=== PATIENT | male | born 1960 | race Caucasian/White ===

== ENCOUNTER 2019-10-27 14:39 | Emergency (ER) | payer MEDICARE, MEDICAID, SELFPAY ==
[2019-10-27 14:39] VITALS: BP 140/95; PULSE 78; RESP 16; TEMP 36.7; O2SAT 96
--- NOTE | 2019-10-27 14:57 | XR_ITS ---
WS: [id number] XR chest 1V portable [id number] REASON FOR EXAM: cough/congestion FINDINGS: The left lower lung shows a low-grade infiltrate with alveolar configuration consistent wit h an early pneumonia. The right lung shows increased peribronchial markings. The heart is not enlarged mediastinal interfaces normal. The hilum and apices normal. XR/XR chest 1V portable [id number] IMPRESSION: Left lower lung pneumonia.
--- NOTE | 2019-10-27 14:57 | ECG_ITS ---
Measurements Intervals [place] Rate: 75 P: 41 OR: 156 QRS: 56 QRSD: 91 T: 40 QT: 375 QTc: 419 SINUS RHYTHM No previous ECG available for comparison Electronically Signed On 10-27-2019 17:25:31 CDT by Sudhir Thornton M.D. [id number]
--- NOTE | 2019-10-27 14:57 | CT_ITS ---
WS: [id number] CT scan of the head, 10/27/2019 Clinical Data: trauma Comparison: None. DLP: 845.[address] scans at [facility] use at least one of these dose optimization techniques: automat ed exposure control; mA and/or kV adjustment per patient size (includes targeted exams where dose is matched to clinical indication); or iterative reconstruction. Findings: The ventricular system is moderately dilated without shift. No recent infarct or hemorrhage is seen. There are no abnormal intracerebral masses. The cerebellum and brainstem are not remarkable. Bony windows of the skull and skull base show no fractures or erosions. The mastoid air cells, internet marketing specialist al auditory canals, sella turcica, intraorbital contents, and paranasal sinuses are unremarkable. CT/CT head wo con* [id number] Impression: Moderate cerebral atrophy.
--- NOTE | 2019-10-27 15:01 | ED_ITS ---
HPI - Fall General: Chief Complaint: Fall Stated Complaint: FALL HEAD INJURY Time Seen by Provider: 10/27/19 14:39 Source: patient and family Mode of arrival: ambulatory Limitations: language barrier and altered mental status History of Present Illness: HPI Narrative: Patient is a 59-year-old male with a history of Down Syndrome here with his mother for complaints of a head injury. 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 Mother states patient has been at his mental baseline since the event. MD complaint: fall Onset (ago): hour(s) Fall from: chair Fall witnessed: yes, by bystander Place fall occurred: work Loss of consciousness: None Prolonged down time: no Symptoms prior to fall: other (cough) Associated symptoms-after fall: Denies abdominal pain, chest pain, headache(s) or neck pain Review of Systems Const: Denies: fever, chills or body aches Eyes: Denies: change in vision or blurry vision Card: Denies: chest pain Resp: Reports: productive cough and chest congestion; Denies: shortness of breath, pain on inspiration or coughing up blood GI: Denies: abdominal pain, nausea, vomiting or diarrhea : Denies: flank pain, difficulty urinating or painful urination Musc: Denies: neck pain or back pain Skin/Breast: Denies: rash Neuro: Denies: headache, numbness in extremities, weakness in extremities or changes in sensation PFS ED PFSH: Social History Smoking and tobacco status: never smoked Physical Exam Const: COMMON NORMALS: no apparent distress, average body habitus, oriented x3, no limitations, healthy appearing, alert and well nourished OTHER: at mental baseline per mother with his down syndrome HENMT: COMMON NORMALS: normocephalic, head/scalp atraumatic, external ears normal, EAC's normal, TM's normal bilaterally, external nose normal, nasal mucous membranes and turbinates normal, moist oral mucous membranes and oropharynx normal HEAD & SCALP: normocephalic and atraumatic NOSE: external nose normal and nasal mucous membranes and turbinates normal EXTERNAL EAR: Yes external ears normal EXTERNAL AUDITORY CANAL: EAC's normal TYMPANIC MEMBRANE: TM's normal bilaterally Eye: COMMON NORMALS: PERRL and EOMs intact bilaterally PUPIL: Yes PERRL Neck/C-Spine: COMMON NORMALS: full ROM, no lymphadenopathy and no meningeal signs CERVICAL SPINE: Yes cervical ROM normal, No pain with cervical ROM, No cervical spine tenderness and No paracervical muscle tenderness Resp: COMMON NORMALS: normal respiratory effort and clear to auscultation bilaterally AUSCULTATION: clear to auscultation bilaterally Cardio: COMMON NORMALS: regular rate and regular rhythm RATE: regular rate RHYTHM: regular rhythm GI: COMMON NORMALS: normal to inspection, nondistended, normoactive bowel sounds, soft to palpation and non-tender PALPATION: Yes soft Back/Pelvis: COMMON NORMALS: thoracic and lumbar spine normal to inspection, no thoracic nor lumbar tenderness and thoraco-lumbar ROM normal Extremity: COMMON NORMALS: normal to inspection Neuro: COMMON NORMALS: oriented x3 SENSORIUM/ORIENTATION: Yes alert MENINGEAL SIGNS: Yes no meningeal signs Skin: COMMON NORMALS: no rashes or lesions noted GENERAL SKIN EXAM: no rashes or lesions noted Course Vital Signs: Vital signs: Vital Signs Temperature 98.0 F 10/27/19 14:39 Pulse Rate 76 10/27/19 17:05 Respiratory Rate 16 10/27/19 17:05 Blood Pressure 139/90 10/27/19 17:05 Pulse Oximetry 96 10/27/19 17:05 MDM - Fall MDM Narrative: Medical decision making narrative: Most likely due to the coughing patient had a vasovagal episode and fell forward striking his head. CT of his head is normal here. He does have a left lower lobe pneumonia. Vitals and labs are non-concerning at this time. He is stable to be treated as an outpatient. Lab Data: Labs: Lab Results 10/27/19 10/27/19 10/27/19 Range/Units 15:05 15:05 15:05 WBC 4.0 (4.0-10.0) 10^3/ uL RBC 4.88 (4.1-5.3) 10^6/u L Hgb 16.1 (11.7-16.6) g/dL Hct 48.2 (42.0-52.0) % MCV 98.8 H (80-94) fL MCH 33.0 (28.0-34.0) pg MCHC 33.4 (30.0-36.0) g/dL RDW 12.9 (12.1-15.1) % Plt Count 201 (130-400) 10^3/c mm MPV 9.6 (7.4-10.4) fL Neut % (Auto) 54.4 % Lymph % (Auto) 34.0 % [place] % (Auto) 8.4 % Eos % (Auto) 0.5 % Baso % (Auto) 1.7 % Neut # (Auto) 2.2 (1.8-7.7) 10^3/u L Lymph # (Auto) 1.4 (0.8-4.8) 10^3/u L [place] # (Auto) 0.3 (0.2-0.9) 10^3/u L Eos # (Auto) 0.0 (0.0-0.8) 10^3/u L Baso # (Auto) 0.1 (0.0-0.1) 10^3/u L Nucleated RBC % (a uto) 0 % Nucleated RBCs # 0.0 /100WBC Sodium 136 (136-145) mmol/L Potassium 4.1 (3.5-5.1) mmol/L Chloride 99 (98-107) mmol/L Carbon Dioxide 27 (22-29) mmol/L Anion Gap 14.1 (5-19) BUN 14 (6-20) mg/dL Creatinine 1.0 (0.7-1.2) mg/dL GFR Calculation 76.7 L (90-130) mL/min Glucose 126 H (65-115) mg/dL Calculated Osmolal ity 280 L (285-295) mOsm/k g Calcium 9.6 (8.5-10.5) mg/dL Total Bilirubin 0.3 (0.15-1.2) mg/dL AST 47 H (0-40) U/L ALT 41 (0-41) U/L Alkaline Phosphata se 57 (40-130) IU/L Troponin T Gen 5 n g/L 7 (0-15) ng/mL Total Protein 8.2 (6.6-8.7) g/dL Albumin 3.9 (3.5-5.2) g/dL Globulin 4.3 (1.3-4.6) g/dL Imaging Data^: CXR: Radiologist's impression: [address] [address] XRay Report Signed Patient: Marco Bradley Unit #: [id number] : 1960 Age/Sex: 59 / M ADM Date: 10/27/19 Loc: ER Room/Bed: Attending Dr: Ordering Provider/Ordering MD: Nuris Florez Date of Service: 10/27/19 Procedure(s): XR chest 1V portable [id number] Accession Number(s): [id number] Report Number: [id number] WS: [id number] XR chest 1V portable [id number] REASON FOR EXAM: cough/congestion FINDINGS: The left lower lung shows a low-grade infiltrate with alveolar configuration consistent with an early pneumonia. The right lung shows increased peribronchial markings. The heart is not enlarged mediastinal interfaces normal. The hilum and apices normal. XR/XR chest 1V portable [id number] IMPRESSION: Left lower lung pneumonia. Dictated By: Chris Moraes DO Signed By: Chris Moraes DO Signed Date/Time: 10/27/[address] Head: Radiologist's impression: [address] [place] [address] CT Scan Report Signed Patient: Marco Bradley Unit #: [id number] : 1960 Age/Sex: 59 / M ADM Date: 10/27/19 Loc: ER Room/Bed: Attending Dr: Ordering Provider/Ordering MD: Nuris Florez Date of Service: 10/27/19 Procedure(s): CT head wo con* [id number] Accession Number(s): [id number] Report Number: [id number] WS: [id number] CT scan of the head, 10/27/2019 Clinical Data: trauma Comparison: None. DLP: 845.[address] scans at [facility] use at least one of these dose optimization techniques: automated exposure control; mA and/or kV adjustment per patient size (includes targeted exams where dose is matched to clinical indication); or iterative reconstruction. Findings: The ventricular system is moderately dilated without shift. No recent infarct or hemorrhage is seen. There are no abnormal intracerebral masses. The cerebellum and brainstem are not remarkable. Bony windows of the skull and skull base show no fractures or erosions. The mastoid air cells, internal auditory canals, sella turcica, intraorbital contents, and paranasal sinuses are unremark able. CT/CT head wo con* [id number] Impression: Moderate cerebral atrophy. Dictated By: Zahra Thompson MD Signed By: Zahra Thompson MD Signed Date/Time: 10/27/191535 DD/ 33 EKG Data^: EKG 1: EKG interpretation date: 10/27/19 EKG interpretation time: 15:11 Interpretation: Sinus rhythm Rate [address] elevation or depression noted Discharge Plan Discharge Patient Disposition: Home, Self-Care Clinical Impression: Fall Qualifiers: Encounter type: initial encounter Qualified Code(s): W19.XXXA - Unspecified fall, initial encounter Pneumonia Qualifiers: Pneumonia type: due to unspecified organism Laterality: left Lung location: lower lobe of lung Qualified Code(s): J18.9 - Pneumonia, unspecified organism Condition: Stable Prescriptions: New doxycycline monohydrate 100 mg capsule 100 mg PO Q12H 10 Days Qty: 20 RF: 0 No Action levothyroxine 88 mcg Tablet 88 mcg PO DAILY RF: 0 Discharge Orders: Discharge Order (Routine); Ordered 10/27/19 Ordered By: Nuris Florez Referrals: [facility] [Other] Discharge Date/Time: 10/27/19 17:07 Coding Level of Care Code ED Dispatcher Chief Oil for Aris Law
[2019-10-27 15:12] LABS: Basophils # 0.1 10^3/uL (0.0-0.1); Basophils % 1.7 %; Eosinophils % 0.5 %; Hematocrit 48.2 % (42.0-52.0); Hemoglobin 16.1 g/dL (11.7-16.6); Lymphocytes # 1.4 10^3/uL (0.8-4.8); Mean Corpuscular HGB Conc 33.4 g/dL (30.0-36.0); Mean Corpuscular Volume 98.8 fL (80-94); Mean Platelet Volume 9.6 fL (7.4-10.4); Monocytes # 0.3 10^3/uL (0.2-0.9); Monocytes % 8.4 %; Neutrophils # 2.2 10^3/uL (1.8-7.7); Neutrophils % 54.4 %; Nucleated Red Blood Cells % 0 %; Platelet Count 201 10^3/cmm (130-400); Red Blood Count 4.88 10^6/uL (4.1-5.3); Red Cell Distribution Width 12.9 % (12.1-15.1)
[2019-10-27 15:30] LABS: Alanine Aminotransferase 41 U/L (0-41); Albumin Level 3.9 g/dL (3.5-5.2); Alkaline Phosphatase 57 IU/L (40-130); Anion Gap 14.1 (5-19); Aspartate Amino Transferase 47 U/L (0-40); Blood Urea Nitrogen 14 mg/dL (6-20); Calcium 9.6 mg/dL (8.5-10.5); Carbon Dioxide 27 mmol/L (22-29); Chloride 99 mmol/L (98-107); Globulin 4.3 g/dL (1.3-4.6); Glomerular Filtration Rate 76.7 mL/min (90-130); Glucose 126 mg/dL (65-115); Osmolality Calculated 280 mOsm/kg (285-295); Potassium 4.1 mmol/L (3.5-5.1); Sodium 136 mmol/L (136-145); Total Bilirubin 0.3 mg/dL (0.15-1.2); Total Protein 8.2 g/dL (6.6-8.7)
[2019-10-27 15:32] LABS: Troponin T (5th) Once 7 ng/mL (0-15)
--- NOTE | 2019-10-27 15:47 | PC.NURSE ---
patient returned from ct
[2019-10-27 17:05] VITALS: BP 139/90; PULSE 76; RESP 16; O2SAT 96
== END 2019-10-27 17:07 | disposition home or self-care (01) ==
LOC: ER 16:20
PROVIDERS: Emergency Provider Physician Assistant; PCP Physician Assistant Medical
DX: J18.9 Pneumonia, unspecified organism (principal); Q90.9 Down syndrome, unspecified
CPT/HCPCS: 12345; 36415; 70450; 71045; 80053; 84484; 85025; 93005; 99281; 99283

== ENCOUNTER 2022-10-05 08:28 | Emergency (ER) | payer MEDICARE, MEDICAID, SELFPAY ==
[2022-10-05 08:29] VITALS: BP 97/67; PULSE 71; TEMP 36.5; O2SAT 93
--- NOTE | 2022-10-05 08:36 | ECG_ITS ---
[facility] Test Date: 2022-10-05 Pat Name: Marco Bradley Department: Room: Gender: Male Legislative Analyst: : 1960 Requested By: Kt Cerda Order Number: [id number] Dasia MD: Jose Restrepo M.D. Measurements Intervals [place] Rate: 72 P: 16 [place]: 167 QRS: 31 QRSD: 96 T: -11 QT: 389 QTc: 429 Interpretive Statements SINUS RHYTHM NONSPECIFIC T-WAVE ABNORMALITY Compared to ECG 10/27/2019 15:11:43 T-wave abnormality now present Electronically Signed On 10-05-2022 22:20:45 BULK FILLER by Jose Restrepo M.D. [id number]
--- NOTE | 2022-10-05 08:44 | ED_ITS ---
HPI - Seizure General: Chief Complaint: Seizure Stated Complaint: Seizures, AMS Time Seen by Provider: 10/05/22 08:34 Source: patient Mode of arrival: EMS History of Present Illness: HPI Narrative: 62-year-old male resident of a [place] [facility] with history of Down syndrome and Parkinson's. He has some dementia as well he is nonverbal at this point. shelter states he has a seizure he has a known history of seizure disorder. Looking through some old notes they have provided us to look like at one time he was on the Keppra: He currently is on valproic acid. complaint: seizure Onset (ago): minute(s) Witnessed: Yes - by Other Trauma: No Seizure History: Yes Place: Home (shelter) Possible Precipitating Event: none Treatments prior to arrival: none Review of Systems General: Reports: ROS unobtainable due to mental status PFSH ED PFSH: Medical History (Updated 10/05/22 @ 10:41 by Kt Ott DO) Hypothyroidism Parkinsons Seizure disorder Social History Smoking and tobacco status: never smoked Physical Exam Const: COMMON NORMALS: no acute distress GENERAL APPEARANCE: cooperative and comfortable ORIENTATION/CONSCIOUSNESS: Yes awake HENMT: COMMON NORMALS: normocephalic, atraumatic and hearing grossly normal bilaterally HEAD & SCALP: normocephalic and atraumatic Resp: COMMON NORMALS: normal respiratory effort, No retractions, No use of accessory muscles and clear to auscultation bilaterally AUSCULTATION: clear to auscultation bilaterally Cardio: COMMON NORMALS: regular rate, regular rhythm and No murmurs present (Cardio) RATE: regular rate RHYTHM: regular rhythm GI: COMMON NORMALS: Soft to palpation and No hepatosplenomegaly present AUSCULTATION: Yes normoactive bowel sounds PALPATION: Yes Soft to palpation, No Tenderness to palpation present (GI), No Guarding due to palpation present (GI) and Yes No hepatosplenomegaly present Extremity: COMMON NORMALS: normal to inspection, capillary refill normal, no c lubbing, cyanosis or edema, no calf tenderness and no pedal edema Skin: COMMON NORMALS: no rashes or lesions noted GENERAL SKIN EXAM: no rashes or lesions noted Course Vital Signs: Vital signs: Vital Signs Temperature 97.7 F 10/05/22 08:29 Pulse Rate 75 10/05/22 12:22 Respiratory Rate 23 H 10/05/22 12:22 Blood Pressure 108/77 10/05/22 12:22 Pulse Oximetry 97 10/05/22 12:22 Oxygen Delivery Me thod 10/05/22 09:30 MDM - Seizure MDM Narrative Medical decision making narrative: Labs reviewed. No significant abnormalities. His valproic acid level is slightly below therapeutic likely because he did not take his dose today. Continue current medications they should follow-up with her neurologist about any medication doses reviewing old records if at one point he was on Keppra and was changed to the valproic acid. He has not had any further seizures. He has dementia and Parkinson's as well. Discharged back to [place] [facility]. Lab Data 10/05/22 07:45 10/05/22 09:30 Labs: Laboratory Results WBC 5.7 10^3/uL (4.0-10.0) 10/05/22 07:45 RBC 4.32 10^6/uL (4.1-5.3) 10/05/22 07:45 Hgb 14.9 g/dL (11.7-16.6) 10/05/22 07:45 Hct 46.3 % (42.0-52.0) 10/05/22 07:45 MCV 107.2 fl (80-94) H 10/05/22 07:45 MCH 34.5 pg (28.0-34.0) H 10/05/22 07:45 MCHC 32.2 g/dL (30.0-36.0) 10/05/22 07:45 RDW 13.1 % (12.1-15.1) 10/05/22 07:45 Plt Count 205 10^3/cmm (130-400) 10/05/22 07:45 MPV 11.0 fL (7.4-10.4) H 10/05/22 07:45 Neut % (Auto) 31.9 % 10/05/22 07:45 Lymph % (Auto) 51.6 % 10/05/22 07:45 [place] % (Auto) 9.8 % 10/05/22 07:45 Eos % (Auto) 0.7 % 10/05/22 07:45 Baso % (Auto) 1.6 % 10/05/22 07:45 Neut # (Auto) 1.83 10^3/uL (1.8-7.7) 10/05/22 07:45 Lymph # (Auto) 3.0 10^3/uL (0.8-4.8) 10/05/22 07:45 [place] # (Auto) 0.6 10^3/uL (0.2-0.9) 10/05/22 07:45 Eos # (Auto) 0.0 10^3/uL (0.0-0.8) 10/05/22 07:45 Baso # (Auto) 0.1 10^3/uL (0.0-0.1) 10/05/22 07:45 Nucleated RBC % (auto) 0 % 10/05/22 07:45 Nucleated RBCs # 0.0 /100WBC 10/05/22 07:45 Sodium 135 mmol/L (136-145) L 10/05/22 09:30 Potassium 3.8 mmol/L (3.5-5.1) 10/05/22 09:30 Chloride 99 mmol/L (98-107) 10/05/22 09:30 Carbon Dioxide 28 mmol/L (22-29) 10/05/22 09:30 Anion Gap 11.8 (5-19) 10/05/22 09:30 BUN 11 mg/dL (8-23) 10/05/22 09:30 Creatinine 1.0 mg/dL (0.7-1.2) 10/05/22 09:30 GFR Calculation 76.0 mL/min (90-130) L 10/05/22 09:30 Glucose 104 mg/dL (65-115) 10/05/22 09:30 POC Glucose 90 mg/dL (70-110) 10/05/22 09:01 Calculated Osmolality 280 mOsm/kg (285-295) L 10/05/22 09:30 Calcium 9.1 mg/dL (8.5-10.5) 10/05/22 09:30 Total Bilirubin 0.4 mg/dL (0.15-1.2) 10/05/22 09:30 AST 27 U/L (0-40) 10/05/22 09:30 ALT 19 U/L (0-41) 10/05/22 09:30 Alkaline Phosphatase 66 U/L (40-130) 10/05/22 09:30 Total Protein 8.5 g/dL (6.6-8.7) 10/05/22 09:30 Albumin 3.0 g/dL (3.5-5.2) L 10/05/22 09:30 Globulin 5.5 g/dL (1.3-4.6) H 10/05/22 09:30 Valproic Acid 46.5 ug/mL (50-100) L 10/05/22 09:30 Discharge Plan Discharge Patient Disposition: Home Clinical Impression: Seizure disorder, Parkinsons Condition: Stable Prescriptions: No Action levothyroxine 175 mcg tablet 175 mcg PO DAILY senna 8.6 mg Tablet 8.6 mg PO BID acetaminophen 325 mg Tablet 650 mg PO QID PRN (Reason: Pain) divalproex 250 mg tablet,delayed release (DR/EC) 250 mg PO TID Miralax 17 gram Powder In Packet 17 g PO BID hydrocodone-acetaminophen 5-325 mg tablet 1 tab PO Q6H PRN (Reason: Pain) Visine 0.05 % Drops 2 drp OPHTHALMIC (EYE) Q8H PRN (Reason: Dry Eye(S)) Milk of Magnesia 400 mg/5 mL Suspension 30 ml PO DAILY PRN (Reason: Constipation) bisacodyl 10 mg Suppository 10 mg MO DAILY PRN (Reason: Constipation) Fleet Enema 19-7 gram/118 mL Enema 118 ml MO DAILY PRN (Reason: Constipation) carbidopa-levodopa 25-100 mg tablet 1 tab PO TID hydrochlorothiazide 12.5 mg tablet 12.5 mg PO DAILY Discharge Orders: Discharge ED (Routine); Ordered 10/05/22 Ordered By: Kt Ott Referrals: Gerald Mason [Primary Care Provider] - Discharge Diet: Usual diet Discharge Activity: Resume usual activity Patient Instructions: Opioid Safety, Pain Management Activity Restrictions/Additional Instructions: You are seen today after a seizure. Given your history of seizures there is no further work-up needed. A valproic acid level was done can be used by your attending physician and neurologist to adjust future medications. He will be discharged back to the [place] [facility] recommend staff there make your neurologist aware of the breakthrough seizure to see if they wish to change any medications. At this time continue to take previously prescribed medications with no changes. Coding Level of Care Code ED Bread Jockey for Aris Law
[2022-10-05 08:59] LABS: Basophils # 0.1 10^3/uL (0.0-0.1); Basophils % 1.6 %; Eosinophils % 0.7 %; Hematocrit 46.3 % (42.0-52.0); Hemoglobin 14.9 g/dL (11.7-16.6); Lymphocytes % 51.6 %; Mean Corpuscular HGB Conc 32.2 g/dL (30.0-36.0); Mean Corpuscular Hemoglobin 34.5 pg (28.0-34.0); Mean Corpuscular Volume 107.2 fl (80-94); Monocytes # 0.6 10^3/uL (0.2-0.9); Monocytes % 9.8 %; Neutrophils # 1.83 10^3/uL (1.8-7.7); Neutrophils % 31.9 %; Nucleated Red Blood Cells % 0 %; Platelet Count 205 10^3/cmm (130-400); Red Blood Count 4.32 10^6/uL (4.1-5.3); Red Cell Distribution Width 13.1 % (12.1-15.1); White Blood Count 5.7 10^3/uL (4.0-10.0)
[2022-10-05 09:00] VITALS: BP 104/66; PULSE 69; O2SAT 92
[2022-10-05 09:04] LABS: Glucose Point of Care 90 mg/dL (70-110)
[2022-10-05 09:30] VITALS: BP 121/75; PULSE 65; O2SAT 95
[2022-10-05 09:59] LABS: Alanine Aminotransferase 19 U/L (0-41); Alkaline Phosphatase 66 U/L (40-130); Anion Gap 11.8 (5-19); Aspartate Amino Transferase 27 U/L (0-40); Blood Urea Nitrogen 11 mg/dL (8-23); Calcium 9.1 mg/dL (8.5-10.5); Carbon Dioxide 28 mmol/L (22-29); Chloride 99 mmol/L (98-107); Globulin 5.5 g/dL (1.3-4.6); Glucose 104 mg/dL (65-115); Osmolality Calculated 280 mOsm/kg (285-295); Potassium 3.8 mmol/L (3.5-5.1); Sodium 135 mmol/L (136-145); Total Bilirubin 0.4 mg/dL (0.15-1.2); Total Protein 8.5 g/dL (6.6-8.7)
[2022-10-05 10:00] VITALS: BP 124/77; PULSE 71; O2SAT 92
[2022-10-05 10:30] VITALS: BP 101/86; PULSE 78; O2SAT 93
--- NOTE | 2022-10-05 10:36 | PC.NURSE ---
pt resting in bed. pt awake, tracking movement with eyes. baseline pt is nonverbal. oral care provided. pt able to follow simple commands.
[2022-10-05 11:06] LABS: Valproic Acid Level 46.5 ug/mL (50-100)
--- NOTE | 2022-10-05 11:22 | PC.NURSE ---
Dr. Ott to pt room to talk with family regarding discharge and answered questions family had
--- NOTE | 2022-10-05 11:32 | PC.NURSE ---
discharge report called to BULL Reilly correspondence section supervisor at [facility]
[2022-10-05 12:22] VITALS: BP 108/77; PULSE 75; RESP 23; O2SAT 97
== END 2022-10-05 12:24 | disposition home or self-care (01) ==
PROVIDERS: Emergency Provider Family Medicine; PCP Physician Assistant Medical
DX: G40.909 Epilepsy, unspecified, not intractable, without status epilepticus (principal); G20 Parkinson's disease
CPT/HCPCS: 36416; 80053; 80164; 82962; 85025; 93005; 99284

== ENCOUNTER 2022-12-10 10:06 | Inpatient (IN) | payer MEDICARE, MEDICAID, SELFPAY ==
[2022-12-10] VITALS (31 sets, daily range): BP systolic 72–126; BP diastolic 42–74; PULSE 61–101; RESP 10–28; TEMP 36.9–37.2; O2SAT 89–98
--- NOTE | 2022-12-10 11:23 | ECG_ITS ---
[facility] Test Date: 2022-12-10 Pat Name: Marco Bradley Department: Room: Gender: Male Blue Print Control Clerk: : 1960 Requested By: Kt Cerda Order Number: [id number] Dasia MD: Jose Restrepo M.D. Measurements Intervals [place] Rate: 85 P: 78 ME: 152 QRS: 85 QRSD: 89 T: 38 QT: 378 QTc: 450 Interpretive Statements SINUS RHYTHM NONSPECIFIC T-WAVE ABNORMALITY INTERPRETATION BASED ON A DEFAULT AGE OF 40 YEARS Compared to ECG 10/05/2022 08:51:34 No significant changes Electronically Signed On 12-10-2022 22:30:48 CDT by Jose Restrepo M.D. [id number] f
--- NOTE | 2022-12-10 11:23 | XRR_ITS ---
PROCEDURE INFORMATION: Exam: XR Chest Exam date and time: 12/10/2022 10:29 AM Age: 62 years old Clinical indication: Cough and dyspnea; Additional info: Dyspnea/cough TECHNIQUE: Imaging protocol: Radiologic exam of the chest. Views: 1 view. COMPARISON: CR XR chest 1V portable [id number] 10/27/2019 3:26 PM FINDINGS: Lungs: Mild reticulonodular opacity in the medial left lower lung. Right lung is clear. Pleural spaces: There is no pleural effusion or pneumothorax. Heart/Mediastinum: Cardiomediastinal contours are unremarkable. Bones/joints: Bones are unremarkable. XR/XR chest 1V portable [id number] IMPRESSION: Mild nonspecific opacity in the left lung base. The finding is decreased since 10/27/2019. Possible residual scarring and atelectasis versus a recurrent acute process. Infection is not excluded.
--- NOTE | 2022-12-10 11:23 | CTR_ITS ---
PROCEDURE INFORMATION: Exam: CT Head Without Contrast Exam date and time: 12/10/2022 11:37 AM Age: 62 years old Clinical indication: Altered mental status/memory loss; Confusion or disorientation; Additional info: AMS TECHNIQUE: Imaging protocol: Computed tomography of the head without contrast. Radiation optimization: All CT scans at this facility use at least one of these dose optimization techniques: automated exposure control; mA and/or kV adjustment per patient size (includes targeted exams where dose is matched to clinical indication); or iterative reconstruction. REPORTING DATA: Count of CT and Cardiac NM exams in prior 12 months: This patient has received 0 known CTs and 0 known cardiac nuclear medicine studies in the 12 months prior to the current study. COMPARISON: CT head wo con* [id number] 10/27/2019 3:17 PM RADIATION DOSE METRICS: Total DLP (mGy-cm): 2037. FINDINGS: Brain: Marked diffuse cerebral atrophy. There is hypoattenuation in the periventricular and subcortical white matter consistent with chronic microvascular disease. There is no acute intracranial hemorrhage. Cerebral ventricles: Severe lateral ventricular dilation is progressive since 10/27/2019. Moderate progressive dilation of the 3rd and 4th ventricles. No intraventricular hemorrhage. Paranasal sinuses: The paranasal sinuses are clear. Mastoid air cells: Trace left mastoid effusion. Right mastoid air cells are clear. Orbital cavities: Marked bilateral enophthalmos. Bones/joints: The calvarium is intact. Soft tissues: The visible extracranial soft tissues are unremarkable. CT/CT head wo con* [id number] IMPRESSION: 1. No acute intracranial abnormality. 2. Progressive severe diffuse cerebral atrophy since 10/27/2019. 3. Progressive severe diffuse ventricular dilation since 10/27/2019. Normal pressure hydrocephalus versus ventricular dilation related to atrophy.
[2022-12-10] MEDS: sodium chloride 0.9% 1,000 ML 999 ML IV (11:57)
[2022-12-10 12:01] LABS: Basophils # 0.1 10^3/uL (0.0-0.1); Basophils % 1.2 %; Hematocrit 43.9 % (42.0-52.0); Hemoglobin 13.4 g/dL (11.7-16.6); Lymphocytes # 1.6 10^3/uL (0.8-4.8); Lymphocytes % 27.2 %; Mean Corpuscular HGB Conc 30.5 g/dL (30.0-36.0); Mean Corpuscular Hemoglobin 34.5 pg (28.0-34.0); Mean Corpuscular Volume 113.1 fl (80-94); Mean Platelet Volume 12.1 fL (7.4-10.4); Monocytes # 0.5 10^3/uL (0.2-0.9); Neutrophils # 3.69 10^3/uL (1.8-7.7); Neutrophils % 61.6 %; Nucleated Red Blood Cells % 0.3 %; Platelet Count 142 10^3/cmm (130-400); Red Blood Count 3.88 10^6/uL (4.1-5.3); Red Cell Distribution Width 17.3 % (12.1-15.1)
[2022-12-10 12:07] LABS: ABG PCO2 40.5 mmHg (35-45); ABG PH Result 7.49 (7.35-7.45); Alveolar-Arterial Oxygen Gradi 3.9 mmHg (5-10); Arterial Blood Gas Hematocrit 40.1 % (42-52); Base Excess ABG 7.1 mmol/L (-2.0-2.0); Blood Gas Allen Test Pos; Blood Gas Operator Identificat WALCI; Blood Gas Sample Site Radial, left; Blood Gas Sample Type Arterial; Carboxyhemoglobin 1.6 %THgb (0.4-20.1); HGB O2 Sat 93.2 % (95-100); Ionized Calcium Level - ABG 1.1 mmol/L (1.1-1.4); Methemoglobin 0.5 % (0.4-1.5); Oxygen Saturation ABG 95.2; PO2 ABG 67.9 mmHg (80.0-100.0); Potassium Level - ABG 3.7 mmol/L (3.5-5.0); Total Hemoglobin 13.1 g/dL (14-18)
[2022-12-10 12:09] LABS: Ketone (Acetest) Serum Negative (Negative)
--- NOTE | 2022-12-10 12:10 | USR_ITS ---
PROCEDURE INFORMATION: Exam: US Duplex Lower Extremity Veins, Bilateral Exam date and time: 12/10/2022 12:16 PM Age: 62 years old Clinical indication: Swelling (edema) of limb; Lower extremity, bilateral; Additional info: Leg swelling TECHNIQUE: Imaging protocol: Real-time duplex ultrasound of the bilateral extremities with 2-D hernandez scale, color Doppler flow and spectral waveform analysis including responses to compression and other maneuvers (when performed) with image documentation. Complete exam focused on the lower extremity veins. COMPARISON: No relevant prior studies available. FINDINGS: Right deep veins: There is nonocclusive thrombus in the right common femoral vein. Right superficial veins: There is nonocclusive thrombus in the right greater saphenous vein. Left deep veins: There is occlusive thrombus in the left common femoral, femoral and popliteal vein. Left superficial veins: Saphenofemoral junction is patent without thrombus. Soft tissues: Unremarkable. US/CV venous duplex [facility] [id number] IMPRESSION: Bilateral deep venous thrombosis.
--- NOTE | 2022-12-10 12:18 | W.ED.GENADLT ---
HPI - General Adult General: Chief complaint: Altered Mental Status Stated complaint: AMS Time Seen by Provider: 12/10/22 10:26 Source: family Mode of arrival: EMS History of Present Illness: 62-year-old male presents to the emergency room with complaints of status. He lives at [facility]. He has a history of Down's as well as Parkinson's. He is progressively worsening with his Parkinson's had worsening dimension approximately a year ago and became unable to communicate. Family and fdc staff reports that he is off of his baseline. He has lost about 63 pounds in the last 6 months. He has not had any vomiting or diarrhea they have not noticed any fever sweats chills he is actually been moderately hypothermic they reported temp at the nursing of 96. He is not able to contribute anything to his history because of his nonverbal status.. There is no reported hematochezia melena hematemesis coffee-ground emesis. Onset (ago): hour(s) Relieving factors: none Exacerbating factors: none Review of Systems General: Reports: ROS unobtainable due to medical condition and ROS unobtainable due to mental status PFSH ED PFSH: Medical History (Updated 12/10/22 @ 13:33 by Kt Ott DO) Down syndrome Hypothyroidism Parkinsons Seizure disorder Surgical History (Updated 12/10/22 @ 13:16 by Venancio Florez MD) No history of previous surgery Family History (Updated 12/10/22 @ 13:17 by Venancio Florez MD) Mother Breast cancer Social History (Updated 12/10/22 @ 13:17 by Venancio Florez MD) Smoking and tobacco status: never smoked Alcohol intake: never Substance/Drug Use: never Housing: Assisted Physical Exam Const: GENERAL APPEARANCE: frail appearing NUTRITIONAL APPEARANCE: thin ORIENTATION/CONSCIOUSNESS: Yes awake HENMT: COMMON NORMALS: normocephalic, atraumatic and hearing grossly normal bilaterally HEAD & SCALP: normocephalic and atraumatic Resp: COMMON NORMALS: normal respiratory effort, No retractions, No use of accessory muscles and clear to auscultation bilaterally AUSCULTATION: clear to auscultation bilaterally Cardio: COMMON NORMALS: regular rate, regular rhythm and No murmurs present (Cardio) RATE: regular rate RHYTHM: regular rhythm GI: COMMON NORMALS: Soft to palpation and No hepatosplenomegaly present AUSCULTATION: Yes normoactive bowel sounds PALPATION: Yes Soft to palpation, No Tenderness to palpation present (GI), No Guarding due to palpation present (GI) and Yes No hepatosplenomegaly present Extremity: COMMON NORMALS: normal to inspection, capillary refill normal, no clubbing, cyanosis or edema, no calf tenderness and no pedal edema Skin: COMMON NORMALS: no rashes or lesions noted GENERAL SKIN EXAM: no rashes or lesions noted Course Vital Signs: Vital signs: Vital Signs Temperature 98.5 F 12/10/22 12:19 Pulse Rate 101 H 12/10/22 10:08 Respiratory Rate 18 12/10/22 12:06 Blood Pressure 99/74 12/10/22 10:08 Pulse Oximetry 94 12/10/22 12:06 Oxygen Delivery Me thod Room Air 12/10/22 12:06 MDM - General Adult Medical Decision Making Patient has bilateral DVTs as well as severe hypernatremia. His lactic acid is elevated as well. Suspect that may be due to the fluid depletion his BUN is 4.6 and his creatinine is 1.7. I think he is volume depleted because of his dementia he has not been having adequate fluid intake. Is also possible he had a seizure although needed the staff from the family can verify that they seen him have a seizure. His valproic acid is subtherapeutic slightly. Finally CTA of the chest was negative but he does have T4-8 compression fractures of indeterminate age. Discussed with hospitalist and family will admit to the ICU. Medical Records I reviewed the patient's medical records. Lab Data I reviewed the patient's lab results. 12/10/22 11:50 12/10/22 11:50 Radiology Impressions Chest X-Ray 12/10/22 11:23 IMPRESSION: Mild nonspecific opacity in the left lung base. The finding is decreased since 10/27/2019. Possible residual scarring and atelectasis versus a recurrent acute process. Infection is not excluded. Head CT 12/10/22 11:23 IMPRESSION: 1. No acute intracranial abnormality. 2. Progressive severe diffuse cerebral atrophy since 10/27/2019. 3. Progressive severe diffuse ventricular dilation since 10/27/2019. Normal pressure hydrocephalus versus ventricular dilation related to atrophy. Chest CTA 12/10/22 12:29 IMPRESSION: 1. No central pulmonary embolism. 2. Evaluation of the pulmonary arteries is limited by respiratory motion artifact. 3. T4 through T8 mild superior endplate compression fractures of indeterminate age. Laboratory Results WBC 6.0 10^3/uL (4.0-10.0) 12/10/22 11:50 RBC 3.88 10^6/uL (4.1-5.3) L 12/10/22 11:50 Hgb 13.4 g/dL (11.7-16.6) 12/10/22 11:50 Hct 43.9 % (42.0-52.0) 12/10/22 11:50 MCV 113.1 fl (80-94) H 12/10/22 11:50 MCH 34.5 pg (28.0-34.0) H 12/10/22 11:50 MCHC 30.5 g/dL (30.0-36.0) 12/10/22 11:50 RDW 17.3 % (12.1-15.1) H 12/10/22 11:50 Plt Count 142 10^3/cmm (130-400) 12/10/22 11:50 MPV 12.1 fL (7.4-10.4) H 12/10/22 11:50 Neut % (Auto) 61.6 % 12/10/22 11:50 Lymph % (Auto) 27.2 % 12/10/22 11:50 [place] % (Auto) 8.0 % 12/10/22 11:50 Eos % (Auto) 0.0 % 12/10/22 11:50 Baso % (Auto) 1.2 % 12/10/22 11:50 Neut # (Auto) 3.69 10^3/uL (1.8-7.7) 12/10/22 11:50 Lymph # (Auto) 1.6 10^3/uL (0.8-4.8) 12/10/22 11:50 [place] # (Auto) 0.5 10^3/uL (0.2-0.9) 12/10/22 11:50 Eos # (Auto) 0.0 10^3/uL (0.0-0.8) 12/10/22 11:50 Baso # (Auto) 0.1 10^3/uL (0.0-0.1) 12/10/22 11:50 Nucleated RBC % (auto) 0.3 % 12/10/22 11:50 Nucleated RBCs # 0.0 /100WBC 12/10/22 11:50 Specimen Type Arterial 12/10/22 11:56 Sample Site Radial, left 12/10/22 11:56 ABG pH 7.49 (7.35-7.45) H 12/10/22 11:56 ABG pCO2 40.5 mmHg (35-45) 12/10/22 11:56 ABG pO2 67.9 mmHg (80.0-100.0) L 12/10/22 11:56 ABG HCO3 31.0 mmol/L (22-26) H 12/10/22 11:56 ABG O2 Saturation 95.2 12/10/22 11:56 ABG Base Excess 7.1 mmol/L (-2.0-2.0) H 12/10/22 11:56 Riki Test Pos 12/10/22 11:56 A-a O2 Gradient 3.9 mmHg (5-10) L 12/10/22 11:56 Hematocrit 40.1 % (42-52) L 12/10/22 11:56 Hgb O2 Saturation 93.2 % (95-100) L 12/10/22 11:56 Carboxyhemoglobin 1.6 %THgb (0.4-20.1) 12/10/22 11:56 Methemoglobin 0.5 % (0.4-1.5) 12/10/22 11:56 Total Hemoglobin 13.1 g/dL (14-18) L 12/10/22 11:56 Sodium 169.0 mmol/L (131-143) H 12/10/22 11:56 Potassium 3.7 mmol/L (3.5-5.0) 12/10/22 11:56 Glucose 92.0 mg/dL (70-115) 12/10/22 11:56 Ionized Calcium 1.1 mmol/L (1.1-1.4) 12/10/22 11:56 O2 Delivery Device None 12/10/22 11:56 FiO2 21.0 % 12/10/22 11:56 Front End Application Developer ID [employer] 12/10/22 11:56 Sodium 164 mmol/L (136-145) H* 12/10/22 11:50 Potassium 4.1 mmol/L (3.5-5.1) 12/10/22 11:50 Chloride 125 mmol/L (98-107) H 12/10/22 11:50 Carbon Dioxide 29 mmol/L (22-29) 12/10/22 11:50 Anion Gap 14.1 (5-19) 12/10/22 11:50 BUN 46 mg/dL (8-23) H 12/10/22 11:50 Creatinine 1.7 mg/dL (0.7-1.2) H 12/10/22 11:50 GFR Calculation 41.2 mL/min (90-130) L 12/10/22 11:50 Glucose 91 mg/dL (65-115) 12/10/22 11:50 Calculated Osmolality 349 mOsm/kg (285-295) H 12/10/22 11:50 Lactic Acid 3.2 mmol/L (0.5-2.2) H 12/10/22 11:50 Calcium 8.4 mg/dL (8.5-10.5) L 12/10/22 11:50 Magnesium 2.6 mg/dL (1.7-2.3) H 12/10/22 11:50 Total Bilirubin 0.5 mg/dL (0.15-1.2) 12/10/22 11:50 AST 38 U/L (0-40) 12/10/22 11:50 ALT < 5 U/L (0-41) 12/10/22 11:50 Alkaline Phosphatase 56 U/L (40-130) 12/10/22 11:50 Creatine Kinase 130 U/L (39-308) 12/10/22 11:50 Total Protein 8.2 g/dL (6.6-8.7) 12/10/22 11:50 Albumin 2.5 g/dL (3.5-5.2) L 12/10/22 11:50 Globulin 5.7 g/dL (1.3-4.6) H 12/10/22 11:50 Lipase 26 U/L (13-60) 12/10/22 11:50 Valproic Acid 45.8 ug/mL (50-100) L 12/10/22 11:50 Serum Ketones Negative (Negative) 12/10/22 11:50 Discharge Plan Discharge Patient Disposition: Admitted As Inpatient Admit Provider: Venancio Florez Clinical Impression: Hypernatremia, DVT (deep venous thrombosis), JACEK (acute kidney injury), Parkinsons, Down syndrome, Lactic acidosis Condition: Stable Coding Level of Care Code ED Health Education Director for Aris Law
[2022-12-10 12:23] LABS: Valproic Acid Level 45.8 ug/mL (50-100)
[2022-12-10 12:24] LABS: Alanine Aminotransferase < 5 U/L (0-41); Albumin Level 2.5 g/dL (3.5-5.2); Alkaline Phosphatase 56 U/L (40-130); Anion Gap 14.1 (5-19); Aspartate Amino Transferase 38 U/L (0-40); Blood Urea Nitrogen 46 mg/dL (8-23); Calcium 8.4 mg/dL (8.5-10.5); Carbon Dioxide 29 mmol/L (22-29); Chloride 125 mmol/L (98-107); Creatine Phosphokinase 130 U/L (39-308); Globulin 5.7 g/dL (1.3-4.6); Glomerular Filtration Rate 41.2 mL/min (90-130); Glucose 91 mg/dL (65-115); Lipase 26 U/L (13-60); Magnesium 2.6 mg/dL (1.7-2.3); Osmolality Calculated 349 mOsm/kg (285-295); Potassium 4.1 mmol/L (3.5-5.1); Total Bilirubin 0.5 mg/dL (0.15-1.2); Total Protein 8.2 g/dL (6.6-8.7)
[2022-12-10 12:25] LABS: Lactic Sepsis W/Reflex 3.2 mmol/L (0.5-2.2)
--- NOTE | 2022-12-10 12:29 | CTR_ITS ---
PROCEDURE INFORMATION: Exam: CTA Chest With Contrast Exam date and time: 12/10/2022 12:41 PM Age: 62 years old Clinical indication: Other: Dvt TECHNIQUE: Imaging protocol: Computed tomographic angiography of the chest with contrast. 3D rendering (Not supervised by radiologist): MIP and/or 3D reconstructed images were created by the technologist. Radiation optimization: All CT scans at this facility use at least one of these dose optimization techniques: automated exposure control; mA and/or kV adjustment per patient size (includes targeted exams where dose is matched to clinical indication); or iterative reconstruction. Contrast material: OMNI 350; Contrast volume: 80 ml; Contrast route: INTRAVENOUS (IV); REPORTING DATA: Count of CT and Cardiac NM exams in prior 12 months: This patient has received 0 known CTs and 0 known cardiac nuclear medicine studies in the 12 months prior to the current study. COMPARISON: CR (CHEST, ) 12/10/2022 10:29 AM RADIATION DOSE METRICS: Total DLP (mGy-cm): 310.48 FINDINGS: Limitations: Moderate respiratory motion artifact. Pulmonary arteries: The pulmonary arteries are adequately contrast opacified to the subsegmental level. The segmental and subsegmental vessels in the mid to lower lungs and right upper lung are partially obscured by motion artifact. No large central filling defect to suggest embolism. Aorta: The aorta is unremarkable. There is no aneurysm. Lungs: There is no consolidation. There is suboptimal visualization of the mid to lower lungs due to respiratory motion artifact. Pleural spaces: There is no pleural effusion or pneumothorax. Heart: Heart size is normal. There is no pericardial effusion. Lymph nodes: There is no mediastinal or hilar lymphadenopathy. Intraperitoneal space: Visible structures in the upper abdomen are unremarkable. Bones/joints: There are subtle age indeterminate superior endplate compression deformities at T4, T5, T6, T7, and T8. Soft tissues: The extrathoracic soft tissues are unremarkable. CT/CT angio chest PE protcl [id number] IMPRESSION: 1. No central pulmonary embolism. 2. Evaluation of the pulmonary arteries is limited by respiratory motion artifact. 3. T4 through T8 mild superior endplate compression fractures of indeterminate age.
[2022-12-10 12:30] LABS: Sodium 164 mmol/L (136-145)
--- NOTE | 2022-12-10 12:39 | P.HP_ITS ---
Providers/Chief Complaint Admitting Physician: Venancio Florez Primary Care Provider: Jessy Turcios Chief Complaint: AMS History of Present Illness Marco Bradley is a 62 year old male with a past medical history significant for Down syndrome, seizure disorder, Parkinson disease, and constipation who presents to the emergency department from nursing facility with altered mental s tatus. Mother, sister, and brother in law are bedside and supportive. Patient is unable to provide any history due to clinical condition. Mother reports patient has appeared sick for the past 2-3 weeks. She states he has not been acting like himself, does not want to be touched, and has had very poor oral intake. At baseline, patient has recently become non-verbal but usually interactive. He entered the nursing facility about 6 months ago. In the ED, patient was found to have severe hypernatremia and DVTs in bilateral lower extremities. A CT-PE is pending at time of evaluation. Review of Systems Narrative: Attempted to obtain a complete review of systems but was unable due to clinical status (non-verbal, no communicative). Medications/Allergies Home Medications Medication Instructions Recorded Confirmed Last Taken Type acetaminophen 325 mg tablet 650 mg PO QID PRN Pain 10/05/22 12/10/22 10/04/22 History bisacodyl 10 mg rectal suppository 10 mg MA DAILY PRN Constipation 10/05/22 12/10/22 10/02/22 History carbidopa 25 mg-levodopa 100 mg 1 tab PO TID 10/05/22 12/10/22 12/10/22 History tablet divalproex 250 mg tablet,delayed 500 mg PO TID 10/05/22 12/10/22 12/10/22 History release hydrocodone 5 mg-acetaminophen 325 1 tab PO Q6H PRN Pain 10/05/22 12/10/22 12/08/22 History mg tablet magnesium hydroxide 400 mg/5 mL 30 ml PO DAILY PRN Constipation 10/05/22 12/10/22 10/02/22 History oral suspension (Milk of Magnesia) polyethylene glycol 3350 17 gram 17 g PO BID 10/05/22 12/10/22 10/04/22 History oral powder packet (Miralax) sennosides 8.6 mg tablet (senna) 8.6 mg PO BID 10/05/22 12/10/22 12/09/22 History sodium phosphates 19 gram-7 118 ml MA DAILY PRN Constipation 10/05/22 12/10/22 Unknown History gram/118 mL enema (Fleet Enema) tetrahydrozoline 0.05 % eye drops 2 drp ophthalmic (eye) Q8H PRN Dry 10/05/22 12/10/22 Unknown History (Visine) Eye(S) donepezil 5 mg tablet 5 mg PO DAILY 12/10/22 12/10/22 12/09/22 History levothyroxine 125 mcg tablet 125 mcg PO DAILY 12/10/22 12/10/22 12/10/22 History tamsulosin 0.4 mg capsule 0.4 mg PO DAILY 12/10/22 12/10/22 12/09/22 History Allergies Allergy/AdvReac Type Severity Reaction Status Date / Time No Known Allergies Allergy Verified 10/05/22 09:34 PFSH Acute PFSH: Medical History (Updated 12/10/22 @ 13:07 by Venancio Florez MD) Down syndrome Hypothyroidism Parkinsons Seizure disorder Surgical History (Updated 12/10/22 @ 13:16 by Venancio Florez MD) No history of previous surgery Family History (Updated 12/10/22 @ 13:17 by Venancio Florez MD) Mother Breast cancer Social History (Updated 12/10/22 @ 13:17 by Venancio Florez MD) Smoking and tobacco status: never smoked Alcohol intake: never Substance/Drug Use: never Housing: [facility] Vitals/I&O/Wt Last Vital Signs Temp 98.5 F 12/10/22 12:19 Pulse 101 H 12/10/22 10:08 Resp 18 12/10/22 12:06 BP 99/74 12/10/22 10:08 Pulse Ox 94 12/10/22 12:06 O2 Del Method Room Air 12/10/22 12:06 Weight last 48 hrs Weight 68.039 kg Physical Exam Narrative: General: Patient is awake. Ill appearing. Head: Normocephalic. Atraumatic. EOM intact. Down syndrome phenotype. Neck: No JVD. Cardiovascular: Slightly tachycardic. No gallops. Systolic murmur is present. No rub. No gallop. No peripheral edema. Lungs: Clear to auscultation, no use of accessory muscles, no crackles or wheezes. Skin: No jaundice. No rashes. Abdomen: Normal bowel sounds, abdomen soft and nontender. Genito Urinary: Genital exam not performed since complaints not related. Rectal: Rectal exam not performed since no symptoms indicated blood loss. Extremities: No cyanosis or clubbing. Musculoskeletal: No swollen or erythematous joints. Neurological: Moves all 4 extremities. No myoclonus. Data 12/10/22 11:50 12/10/22 11:50 A&P Assessment and plan (1) Hypernatremia: Severe hypernatremia secondary to severe dehydration Admission Na 164 Free water deficit of 5.8 Liters Start D5W Consider NG w/ free water pending clinical response (2) DVT (deep venous thrombosis): Bilateral lower extremity DVT Chest CT-PE pending Start therapeutic Lovenox (3) JACEK (acute kidney injury): Suspect prerenal versus progression to ATN given dehydration Start IV fluids as above Avoid nephrotoxins Strict I&Os Daily weights (4) Lactic acidosis: Suspect secondary to dehydration Hydration as above Trend (5) Seizure disorder: Valproic acid level 45.8 Mother reports dose was increased about 6 weeks ago Unclear if patient has been missing doses due to mentation (6) Parkinsons: Continue Sinemet as mentation allows (7) Hypothyroidism: Continue Synthroid (8) Down syndrome: Continue supportive care (9) Hyperchloremia: Management as above Plan DVT ppx: Lovenox Code Status: Full Code Attestations Medical Necessity Statement*: Patient presents with severe hypernatremia and bilateral DVT in lower extremities with expected work up and hospiltazation to cross two midnights for initation of anticoagulation, IV fluids, serial labs, and supportive care. Critical Care Time: The high probability of a clinically significant, sudden or life threatening deterioration of the patient's endocrine system with severe life threatening hypernatremia required my full and direct attention, intervention and personal management. The critical care time is as shown. This time is in addition to time spent performing any reported procedures but includes the following: [x] Data and vital sign review and interpretation [x] Patient assessment, examination and intervention [x] Documentation [x] Medication orders and management Critical Care Time (min): 50 Coding Level of Care Code Acute Code for [facility] Fwd Diagnoses Hypernatremia E87.0 DVT (deep venous thrombosis) I82.409 JACEK (acute kidney injury) N17.9 Lactic acidosis E87.20 Seizure disorder G40.909 Parkinsons G20 Hypothyroidism E03.9 Down syndrome Q90.9 Hyperchloremia E87.8
[2022-12-10] MEDS: iohexol 350 mg/mL 500 mL Btl (per mL) IV (12:48)
[2022-12-10 13:45] LABS: Procalcitonin 0.24 ng/mL (0-0.5)
[2022-12-10 13:46] LABS: Reflex Lactate Order REFLEX LACTIC ORDERD
[2022-12-10 14:41] LABS: Lactic Acid level (Lactate) 4.1 mmol/L (0.5-2.2)
[2022-12-10] MEDS: enoxaparin 80 mg/0.8 mL Syringe 70 MG SUBCUT (14:54)
[2022-12-10] MEDS: carbidopa-levodopa 25-100mg Tablet 1 EACH PO (14:54)
[2022-12-10] MEDS: HYDROcodone-acetaminophen 5-325 mg Tablet 1 TAB PO (14:55)
[2022-12-10] MEDS: dextrose 5% 1,000 ML 100 ML IV (14:55)
[2022-12-10 15:53] LABS: Albumin Level 2.4 g/dL (3.5-5.2); Anion Gap 15.9 (5-19); Blood Urea Nitrogen 51 mg/dL (8-23); Calcium 8.2 mg/dL (8.5-10.5); Carbon Dioxide 29 mmol/L (22-29); Chloride 125 mmol/L (98-107); Glomerular Filtration Rate 41.2 mL/min (90-130); Glucose 93 mg/dL (65-115); Phosphorus 3.7 mg/dL (2.5-4.5); Potassium 3.9 mmol/L (3.5-5.1)
[2022-12-10 16:00] LABS: Sodium 166 mmol/L (136-145)
[2022-12-10] MEDS: lactated ringers 500 ML 999 ML IV (18:11)
[2022-12-10 20:27] LABS: Alanine Aminotransferase < 5 U/L (0-41); Alkaline Phosphatase 71 U/L (40-130); Anion Gap 9.3 (5-19); Aspartate Amino Transferase 41 U/L (0-40); Blood Urea Nitrogen 42 mg/dL (8-23); Calcium 8.1 mg/dL (8.5-10.5); Carbon Dioxide 30 mmol/L (22-29); Chloride 124 mmol/L (98-107); Globulin 5.5 g/dL (1.3-4.6); Glomerular Filtration Rate 44.2 mL/min (90-130); Glucose 83 mg/dL (65-115); Osmolality Calculated 338 mOsm/kg (285-295); Potassium 4.3 mmol/L (3.5-5.1); Sodium 159 mmol/L (136-145); Total Bilirubin 0.5 mg/dL (0.15-1.2); Total Protein 7.5 g/dL (6.6-8.7)
[2022-12-10 21:46] LABS: Urine Color Dark Yellow (Yellow)
[2022-12-10 21:47] LABS: Urine Appearance Cloudy (CLEAR)
[2022-12-10 21:48] LABS: Add Urine Microscopic? YES; Bilirubin Urine Neg (Negative); Blood Urine 2+ (Negative); Glucose Urine UA Norm (Normal); Ketones Urine Negative (Negative); Leukocyte Esterase Urine 2+ (Negative); Nitrate Urine Negative (Negative); Protein Urine 3+ (Negative); RBC Urine 0-4 /hpf (0-2); Urobilinogen Urine Norm (Negative); pH Urine 6 (5-7)
[2022-12-10 21:49] LABS: Add Urine Culture? Yes; Bacteria Urine TRACE /hpf; Squamous Epithelial Cell Urine 0-4 /hpf (0-5); WBC Urine TOO NUMEROUS TO CNT /hpf (0-5)
--- NOTE | 2022-12-10 22:51 | PC.PHAR ---
Initial Vanc dosing Goal Vanc Trough: 10-20 Plan: Initial dose of 1000 mg Q24H Vanc trough to be scheduled for prior to 4th dose and will reassess
[2022-12-10] MEDS: dextrose 5%-sod chloride 0.9% 1,000 ML 999 ML IV (23:08)
[2022-12-10] MEDS: piperacillin-tazobactam 3.375 GM in sodium chloride 0.9% (plus) 50 ML IV (23:11)
[2022-12-10] MEDS: vancomycin 1,000 MG in sodium chloride 0.9% 250 ML 250 MG IV (23:12)
[2022-12-11] VITALS (57 sets, daily range): BP systolic 60–140; BP diastolic 40–120; PULSE 53–78; RESP 13–35; TEMP 36.9–38.3; O2SAT 92–100
[2022-12-11] MEDS: dextrose 5% 1,000 ML 100 ML IV ×3 (00:36→17:39)
[2022-12-11 01:23] LABS: Blood Urea Nitrogen 39 mg/dL (8-23); Calcium 7.5 mg/dL (8.5-10.5); Carbon Dioxide 28 mmol/L (22-29); Chloride 123 mmol/L (98-107); Glomerular Filtration Rate 44.2 mL/min (90-130); Glucose 209 mg/dL (65-115); Phosphorus 3.1 mg/dL (2.5-4.5); Sodium 156 mmol/L (136-145)
[2022-12-11 01:24] LABS: Anion Gap 8.8 (5-19); Potassium 3.8 mmol/L (3.5-5.1)
[2022-12-11] MEDS: enoxaparin 80 mg/0.8 mL Syringe 70 MG SUBCUT ×2 (03:21→16:08)
[2022-12-11 04:06] LABS: Basophils # 0.1 10^3/uL (0.0-0.1); Basophils % 1.3 %; Eosinophils # 0.1 10^3/uL (0.0-0.8); Eosinophils % 1.1 %; Hematocrit 40.4 % (42.0-52.0); Hemoglobin 12.3 g/dL (11.7-16.6); Lymphocytes # 1.8 10^3/uL (0.8-4.8); Mean Corpuscular HGB Conc 30.4 g/dL (30.0-36.0); Mean Corpuscular Hemoglobin 34.8 pg (28.0-34.0); Mean Corpuscular Volume 114.4 fl (80-94); Mean Platelet Volume 11.4 fL (7.4-10.4); Monocytes # 0.5 10^3/uL (0.2-0.9); Monocytes % 8.1 %; Neutrophils # 3.09 10^3/uL (1.8-7.7); Neutrophils % 55.3 %; Nucleated Red Blood Cells % 0.4 %; Platelet Count 150 10^3/cmm (130-400); Red Blood Count 3.53 10^6/uL (4.1-5.3); Red Cell Distribution Width 17.2 % (12.1-15.1); White Blood Count 5.6 10^3/uL (4.0-10.0)
[2022-12-11 04:28] LABS: Anion Gap 9.5 (5-19); Blood Urea Nitrogen 38 mg/dL (8-23); Calcium 7.9 mg/dL (8.5-10.5); Carbon Dioxide 28 mmol/L (22-29); Chloride 123 mmol/L (98-107); Glomerular Filtration Rate 44.2 mL/min (90-130); Glucose 132 mg/dL (65-115); Magnesium 2.3 mg/dL (1.7-2.3); Osmolality Calculated 335 mOsm/kg (285-295); Phosphorus 2.8 mg/dL (2.5-4.5); Potassium 3.5 mmol/L (3.5-5.1); Sodium 157 mmol/L (136-145)
[2022-12-11] MEDS: piperacillin-tazobactam 3.375 GM in sodium chloride 0.9% (plus) 50 ML IV ×2 (06:01→17:38)
[2022-12-11 08:44] LABS: Albumin Level 2.2 g/dL (3.5-5.2); Anion Gap 9.3 (5-19); Blood Urea Nitrogen 34 mg/dL (8-23); Carbon Dioxide 28 mmol/L (22-29); Chloride 119 mmol/L (98-107); Glomerular Filtration Rate 44.2 mL/min (90-130); Glucose 163 mg/dL (65-115); Phosphorus 2.7 mg/dL (2.5-4.5); Potassium 3.3 mmol/L (3.5-5.1); Sodium 153 mmol/L (136-145)
--- NOTE | 2022-12-11 10:01 | CT_ITS ---
WS: [id number] CT ABDOMEN AND PELVIS NONCONTRAST HISTORY: cystitis TECHNIQUE: Imaging performed through the abdomen and pelvis. Coronal and sagittal reformats are submi tted. All CT scans at [facility] use at least one of these dose optimization techniques: auto mated exposure control; mA and/or kV adjustment per patient size (includes targeted exams where dose is matched to clinical indication); or iterative reconstruction. DLP: 799.57 mGy.cm COMPARISON: 12/10/2022 Lower thorax: Dependent changes at the lung bases. Liver: Normal size liver. No mass or bile duct dilatation. Gallbladder: Variable density within the gallbladder consistent with vicarious excretion from a contr ast study performed on 12/10/2022. Pancreas: Normal size and attenuation. Normal pancreatic duct. No pancreatitis or mass. Small amount of fat infiltration in the LEFT upper abdomen suspect related to motion artifact. Less likely mild ac cristiane pancreatitis. Spleen: Normal. Adrenal glands: Normal. No mass. Right kidney: High density contrast in the renal pelvis and ureter. Otherwise negative. Left kidney: High density contrast in the pelvis and ureter to the wire contrast study. Aorta: Normal abdominal aorta, no aneurysm or atherosclerosis. No free fluid, intraperitoneal air or significant lymphadenopathy. GI tract: Nondistended stomach and small bowel. Motion artifact. No colon obstruction. Appendix is no t definitely identified. Abdominal wall: Negative. No hernia. Pelvis: Marked severe diffuse bladder wall thickening and overdistention. Bladder wall measures up to 1.3 cm. There are several small tracks which fill with contrast extending into the bladder mucosa. T he largest ulceration measures 2.2 cm in the posterior mid urinary bladder. There are additional jessica y tracks or ulcerations also noted. There is inflammation surrounding the bladder. Osseous structures: L5 11 mm anterolisthesis. Bilateral pars defects. CT/CT abdomen pelvis wo con [id number] IMPRESSION: 1. Severe diffuse bladder wall thickening measuring up to 1.3 cm. 2. Additional bladder wall ulcerations containing contrast. The largest ulcera tion measures 2.2 cm in the posterior mid urinary bladder wall. Findings of sig nificant acute cystitis. Bladder is overly distended. 3. No free fluid. 4. No renal obstruction. 5. Breathing motion artifact. 6. There is a small amount of retroperitoneal inflammation surrounding the dis leno aorta and urinary bladder. Inflammatory changes are likely related to the c ystitis.
[2022-12-11 10:42] LABS: Thyroid Stimulating Hormone 0.62 uIU/mL (0.27-4.20)
[2022-12-11 10:43] LABS: Cortisol Random 11.85 ug/dL (2.47-19.5)
[2022-12-11 11:10] LABS: Folate Level 5.7 ng/mL (4.5-32.2); Iron 95 ug/dL (59-158); Percent Saturation 63.3 % (20-50); Total Iron Binding Capacity 150 mcg/dl; Unsaturated Iron Binding 55 ug/dL (112-347); Vitamin B12 580 pg/mL (232-1245)
[2022-12-11 12:45] LABS: Lactic Sepsis W/Reflex 2.1 mmol/L (0.5-2.2)
[2022-12-11] MEDS: dextrose 5%-sod chloride 0.45% 1,000 ML 999 ML IV (12:49)
--- NOTE | 2022-12-11 13:59 | PM.PN ---
Subjective Subjective: Hospital course, labs appreciated. Overnight patient's blood pressure did not respond to septic bolus hence was started on Levophed. Today morning seen with family at bedside. Patient is on CPAP. Seems to be at his baseline mentation. Moaning and responding to verbal stimulus. Maintaining saturation up to 98% on 2 L of oxygen supplementation after removal of CPAP. He is on Levophed of 6 which between has been turned up to 8 to keep mean over pressure over 65. No Rich in place. Vitals/I&O/Wt Last Vital Signs Temp 99.0 F 12/11/22 08:00 Pulse 65 12/11/22 12:00 Resp 17 12/11/22 12:00 BP 98/80 12/11/22 12:00 Pulse Ox 98 12/11/22 12:00 O2 Del Method CPAP 12/11/22 09:26 O2 Flow Rate 3 12/11/22 09:26 12/10/22 12/11/22 12/11/22 22:59 06:59 14:59 Intake Total 0 / 1000 2357.360 / 3357.360 1080.796 / 1080.796 Output Total 200 / 200 Balance -200 / 800 2357.360 / 3157.360 1080.796 / 1080.796 Weight last 48 hrs Weight 74.843 kg Weight 68.039 kg Physical Exam Narrative: General: No acute distress, chronically sick appearing, AO x1-2 HEENT: PERRLA, pupils bilaterally equal and reactive, bilateral radial pulses slightly febrile and fast Chest: Bilateral bronchial breath sounds all over lung barrera with occasional rhonchi, decreased air entry bilaterally in lower zone CVS: S1-S2 regular, no murmurs, tachycardia, no gallops, no rubs Abdomen: Soft, seems to be having tenderness in the right lower quadrant, no organomegaly, bowel sounds present Neuro: No focal deficits, no facial deformity, moving all limbs Urinary Catheter Management: Rich: Cath Placed During This Visit: yes Urinary Catheter Date of Insertion: 12/11/22 Urinary Catheter Time of Insertion: 12:41 Data 12/11/22 03:49 12/11/22 07:55 Micro: Microbiology 12/10/22 00:05 MRSA Culture - Final Nose 12/10/22 23:14 Blood Culture - Preliminary Blood SPECIMEN COLLECTED 12/10/22 23:10 Blood Culture - Preliminary Blood SPECIMEN COLLECTED A&P Assessment and plan (1) Septic shock: Severe sepsis present on admission. Source most likely UTI/cystitis. Endorgan damage with acute kidney injury and hypernatremia. Received septic bolus yesterday. Elevated lactate. Follow-up blood culture. Repeat lactate. Check MRSA swab. For now continue with empiric vancomycin and Zosyn as per creatinine clearance. CT abdomen pelvis to rule out obstructive nephropathy (2) Hypernatremia: Most likely in setting of dehydration from poor oral intake. Trending down. Free water deficit today of 4.2 L. Continue with D5W at 125 cc/h. Discussed in detail with the family regarding possibility of requirement of NG tube placement. They are agreeable but would want to hold off on as long as possible. (3) JACEK (acute kidney injury): Most likely in setting of severe sepsis/septic shock along with dehydration from poor oral intake. CT abdomen pelvis as above. Medical reconciliation done for nephrotoxic drugs. Strict input output charting, daily weights. Rich catheterization. Monitor daily. (4) Cystitis: Follow-up urine cultures. (5) DVT (deep venous thrombosis): Bilateral lower extremity DVT CTA chest negative for PE. Continue with Lovenox 1 mg/kg body weight cupola hourly. We will switch to Eliquis on discharge. (6) Lactic acidosis: Repeat lactate today with reflex. (7) Seizure disorder: Valproic acid level 45.8 Mother reports dose was increased about 6 weeks ago Unclear if patient has been missing doses due to mentation (8) Parkinsons: Continue Sinemet as mentation allows (9) Hypothyroidism: Continue Synthroid (10) Down syndrome: Continue supportive care (11) Hyperchloremia: Management as above Plan Given poor mentation patient is at high risk for aspiration. Keep NPO. Switch oral to IV medications as much as possible. Analgesia: Tylenol as needed, [place] 5 mg every 6 hourly as needed Glycemic control: Not needed. Check A1c. Nutrition: Keep n.p.o. for now given poor mentation CODE STATUS: Discussed in detail with patient's DPOA/mother at bedside. Would not want any kind of life support or chest compressions in case the need arises. For status changed to DNR/DNI. PUD prophylaxis: Famotidine IV twice daily DVT prophylaxis: Full dose Lovenox will suffice for DVT prophylaxis. Discharge planning: Back to skilled nursing once medically stable. Continue with care at ICU level. This documentation was created by [employer] art museum docent software. Every effort was made to ensure accuracy of art museum docent. Any obvious errors or omissions should be clarified with the author of the document. Per DVT ppx: Lovenox Code Status: Full Code Attestations Medical Necessity Statement*: Requires further hospitalization for management of septic shock in setting of UTI/cystitis, hypernatremia from poor oral intake and sepsis Coding Level of Care Code Critical Care >/= 30 minutes Critical care time (in minutes): 90 The high probability of a clinically significant, sudden or life threatening deterioration, as referenced in this documentation, required my full and direct attention, intervention and personal management. The critical care time shown is in addition to time spent performing any reported separately billable procedures and includes the following: [x] Data and vital sign review and interpretation [x] Patient assessment, examination and intervention [x] Medication orders and management [x] Patient/Family updates as able [x] Care Coordination and Documentation. Other Coding Information This patient has a high probability of clinically significant, sudden or life threatening deterioration of the patient's (neurological/pulmonary/cardiac/renal/ID/endocrine) systems required my full, direct attention, the highest level of physician preparedness for urgent intervention and personal management. I managed/supervised life or organ supporting interventions that required frequent physician assessment. I devoted my full attention in the ICU to the direct care of this patient for the period of time indicated above. Time I spent with family or surrogate(s) is included only if the patient was incapable of providing necessary information or participating in decision making. This time includes the following services provided: Telemetry review CPAP ventilation Hemodynamic interpretation, assessment and management Review and interpretation of CXR Review and interpretation of lab values Review and interpretation of microbiologic data and culture results Review of medications and administration Review and interpretation of Nutrition requirements and management Discussion of management with other consultants and services Clinical update to family members Diagnoses Septic shock A41.9; R65.21 Hypernatremia E87.0 JACEK (acute kidney injury) N17.9 Cystitis N30.90 DVT (deep venous thrombosis) I82.409 Lactic acidosis E87.20 Seizure disorder G40.909 Parkinsons G20 Hypothyroidism E03.9 Down syndrome Q90.9 Hyperchloremia E87.8
[2022-12-11 14:07] LABS: Reflex Lactate Order REFLEX LACTIC ORDERD
[2022-12-11 15:42] LABS: Lactic Acid level (Lactate) 2.7 mmol/L (0.5-2.2)
[2022-12-11] MEDS: valproic acid inj 500 MG in sodium chloride 0.9% 50 ML 55 MG IV ×2 (16:09→22:46)
[2022-12-11] MEDS: famotidine 20 mg/2 mL INJ IVP (16:10)
[2022-12-11 18:16] LABS: Alanine Aminotransferase 13 U/L (0-41); Alkaline Phosphatase 52 U/L (40-130); Anion Gap 9.9 (5-19); Aspartate Amino Transferase 34 U/L (0-40); Blood Urea Nitrogen 24 mg/dL (8-23); Calcium 7.6 mg/dL (8.5-10.5); Carbon Dioxide 25 mmol/L (22-29); Chloride 116 mmol/L (98-107); Globulin 5.1 g/dL (1.3-4.6); Glomerular Filtration Rate 61.6 mL/min (90-130); Glucose 115 mg/dL (65-115); Osmolality Calculated 311 mOsm/kg (285-295); Sodium 148 mmol/L (136-145); Total Bilirubin 0.5 mg/dL (0.15-1.2); Total Protein 7.1 g/dL (6.6-8.7)
[2022-12-11 18:22] LABS: Potassium 2.9 mmol/L (3.5-5.1)
--- NOTE | 2022-12-11 20:00 | PC.NURSE ---
Override PIXIS: Pixis was overrode for Lidocaine 1%, initial lidocaine vial pulled from pixis was empty.
[2022-12-11] MEDS: lidocaine 1% 5 ML in potassium chloride premix 100 ML 26.25 ML IV ×2 (20:12→23:55)
--- NOTE | 2022-12-11 20:50 | PC.NURSE ---
Increased Temp: Contacted Dr. Walls for increased temp. New order for PRN rectal tylenol. See MAR for administration.
[2022-12-11] MEDS: acetaminophen 650 mg Supp PR (21:38)
[2022-12-11] MEDS: vancomycin 1,000 MG in sodium chloride 0.9% 250 ML 250 MG IV (22:26)
--- NOTE | 2022-12-11 22:36 | PC.NURSE ---
Family Concerns: Family members at bedside expressed that they believed the pt was uncomfortable/in pain. Pt is unable to take PO meds at this time, PRN Morphine offered. Family refused PRN Morphine and expressed distrust for the medication, saying, that's what killed his dad . This RN provided education about the dosage, purpose, possible side effects of the medication. Family refused. Family is requesting that the pt be given a different pain or anxiety medication. Dr. Walls called. Order for 0.5mg Ativan IVP ONCE if needed. Family agreed to decreased environmental stimuli and reposition pt before trying medication. Ativan not given at this time.
[2022-12-12] VITALS (96 sets, daily range): BP systolic 68–158; BP diastolic 23–129; PULSE 38–119; RESP 15–44; TEMP 36.1–39.3; O2SAT 63–100
--- NOTE | 2022-12-12 01:00 | PC.PHAR ---
Vancomycin Trough scheduled for 12/13 2200 before 2300 dose. Will continue to monitor, Thank you, Margi Barriga [facility]
[2022-12-12] MEDS: piperacillin-tazobactam 3.375 GM in sodium chloride 0.9% (plus) 50 ML IV (02:25)
[2022-12-12] MEDS: enoxaparin 80 mg/0.8 mL Syringe 70 MG SUBCUT ×2 (02:26→15:46)
--- NOTE | 2022-12-12 02:36 | PC.NURSE ---
Physician Notification: Updated Dr. Walls on increase in levophed running in peripheral vein and occasional drop in heart rate to the low 40's. New order for PICC line placement. Financial Auditor Tracey made aware of new PICC line order.
[2022-12-12 04:07] LABS: Basophils # 0.1 10^3/uL (0.0-0.1); Basophils % 1.2 %; Eosinophils # 0.1 10^3/uL (0.0-0.8); Eosinophils % 0.9 %; Hematocrit 38.8 % (42.0-52.0); Lymphocytes # 2.1 10^3/uL (0.8-4.8); Lymphocytes % 30.7 %; Mean Corpuscular HGB Conc 30.9 g/dL (30.0-36.0); Mean Corpuscular Hemoglobin 34.2 pg (28.0-34.0); Mean Corpuscular Volume 110.5 fl (80-94); Monocytes # 0.6 10^3/uL (0.2-0.9); Monocytes % 8.2 %; Neutrophils # 3.91 10^3/uL (1.8-7.7); Neutrophils % 56.3 %; Nucleated Red Blood Cells % 0.6 %; Platelet Count 159 10^3/cmm (130-400); Red Blood Count 3.51 10^6/uL (4.1-5.3); Red Cell Distribution Width 15.7 % (12.1-15.1); White Blood Count 6.9 10^3/uL (4.0-10.0)
[2022-12-12 04:21] LABS: Alanine Aminotransferase 13 U/L (0-41); Albumin Level 1.9 g/dL (3.5-5.2); Alkaline Phosphatase 55 U/L (40-130); Anion Gap 11.8 (5-19); Aspartate Amino Transferase 34 U/L (0-40); Blood Urea Nitrogen 18 mg/dL (8-23); Calcium 7.7 mg/dL (8.5-10.5); Carbon Dioxide 24 mmol/L (22-29); Chloride 112 mmol/L (98-107); Globulin 5.1 g/dL (1.3-4.6); Glomerular Filtration Rate 61.6 mL/min (90-130); Glucose 114 mg/dL (65-115); Osmolality Calculated 301 mOsm/kg (285-295); Potassium 3.8 mmol/L (3.5-5.1); Sodium 144 mmol/L (136-145); Total Bilirubin 0.6 mg/dL (0.15-1.2)
[2022-12-12 04:36] LABS: Estmated Average Glucose 108; Hemoglobin A1C 5.4 % (4.0-6.0)
[2022-12-12] MEDS: famotidine 20 mg/2 mL INJ IVP ×2 (04:55→15:46)
[2022-12-12] MEDS: dextrose 5% 1,000 ML 125 ML IV (04:55)
--- NOTE | 2022-12-12 06:30 | PC.NURSE ---
Addendum entered by Carla Guevara RN 12/12/22 06:31: New order to Hold D5@125ml/hr Original Note: Physician Notification: Contacted Dr. Walls, pt has developed crackles in bilateral lungs. No new orders at this time.
[2022-12-12] MEDS: valproic acid inj 500 MG in sodium chloride 0.9% 50 ML 55 MG IV ×3 (07:06→23:44)
--- NOTE | 2022-12-12 07:32 | XR_ITS ---
WS: [id number] XR chest 1V portable [id number] REASON FOR EXAM: Post PICC placement FINDINGS: There is been placement of a right arm PICC line. The tip of the catheter is within the right atrium. A retraction of approximately [address] the tip of the catheter in the distal SVC at the cavoa trial junction. The position of the catheter and the recommended retraction was discussed with the radiology technolo jason over the phone. The retraction was performed and the chest x-ray repeated which demonstrates the catheter tip at the cavoatrial junction in optimal position for use. XR/XR chest 1V portable [id number] IMPRESSION: Right arm PICC line placement as above.
[2022-12-12] MEDS: acetaminophen 650 mg Supp PR (07:39)
--- NOTE | 2022-12-12 08:00 | PC.NURSE ---
Triple lumen PICC inserted into right cephalic vein without difficulty. Informed consent obtained from patient sister, who is co-gaurdian. Trimmed length of catheter 42 cm with 3 cm external length noted. Mid-arm circumference measured 10 cm from right AC 30 cm. EBL less than 5 mL. Dressing due to be changed tomorrow, 12/13/22. Report given to bedside nurseDivya.
--- NOTE | 2022-12-12 08:40 | PC.NURSE ---
Pt's temp continues to rise after Acetaminophen admin. It is 102.7 F. Ice packs applied to 1 groin and axilla each. Will continue to monitor.
--- NOTE | 2022-12-12 09:40 | PC.NURSE ---
Pt had a 17 beat run of VT. Then subsequently several more runs of [address] Pelletier was at bedside during this time.
[2022-12-12] MEDS: meropenem 1,000 MG in sodium chloride 0.9% (plus) 50 ML 100 MG IV ×2 (09:59→17:46)
[2022-12-12] MEDS: albumin 25 G/100 ML BAG 60 G IV ×2 (10:00→15:45)
[2022-12-12] MEDS: hydrocortisone 100 mg/2 mL SDV 50 MG IVP ×3 (10:00→21:40)
[2022-12-12] MEDS: acetaminophen 1,000 MG/100 ML PIGGYBACK 400 MG IV (10:01)
--- NOTE | 2022-12-12 11:34 | PC.NURSE ---
Pt resting , calmly, with eyes closed at this time. He is no longer fidgeting and squirming in the bed.
[2022-12-12] MEDS: lanolin oint 7 gm 1 APPLIC TOPICAL (13:09)
--- NOTE | 2022-12-12 14:58 | PC.NURSE ---
1305: Pt had another run of VT, 8 beats. Followed by more irritability by having 3-4 more runs of no more than 5 beats each. Pt asymptomatic. No shortness or breath, agitation, etc noted.
[2022-12-12 16:28] LABS: Troponin(5th) Baseline 31 ng/L (0-15)
--- NOTE | 2022-12-12 17:12 | PM.PN ---
Subjective Subjective: Seen multiple times during the day. Overnight patient received a PICC line. Today morning on examination patient is laying in bed, fidgety, Levophed running at 9 mics, Tmax of 201 Fahrenheit. Mean arterial pressures have remained stable on increasing the Levophed. Saturations have maintained over 90%. Was on CPAP overnight. Thick secretions orally suctioned. Urine output in last 24 hours of 1400 cc. Patient has remained n.p.o. Family at bedside. Goals of care discussion was done in detail with the family today. Vitals/I&O/Wt Last Vital Signs Temp 98 F 12/12/22 13:45 Pulse 42 L 12/12/22 16:45 Resp 19 H 12/12/22 16:45 BP 94/54 12/12/22 16:45 Pulse Ox 96 12/12/22 16:45 O2 Del Method Nasal Cannula 12/12/22 16:45 O2 Flow Rate 2 12/12/22 16:45 12/12/22 12/12/22 12/12/22 06:59 14:59 22:59 Intake Total 1500.086 / 5709.276 503.883 / 503.883 135.430 / 639.313 Output Total 700 / 1400 Balance 800.086 / 4309.276 503.883 / 503.883 135.430 / 639.313 Weight last 48 hrs Weight 73.346 kg Weight 74.843 kg Physical Exam Narrative: General: No acute distress, chronically sick appearing, occasionally following simple commands, looks uncomfortable today HEENT: PERRLA, pupils bilaterally equal and reactive, bilateral radial pulses slightly febrile and fast Chest: Bilateral bronchial breath sounds all over lung barrera with occasional rhonchi, decreased air entry bilaterally in lower zone, conditional airway sound CVS: S1-S2 regular, no murmurs, tachycardia, no gallops, no rubs Abdomen: Soft, seems to be having tenderness in the right lower quadrant, no organomegaly, bowel sounds present Neuro: No focal deficits, no facial deformity, moving all limbs Urinary Catheter Management: Rich: Cath Placed During This Visit: yes Reason for Continuing Indwelling Catheter: Accurate Measurement of Urinary Output in Critically Ill Patients Urinary Catheter Date of Insertion: 12/11/22 Urinary Catheter Time of Insertion: 12:41 Data 12/12/22 02:44 12/12/22 18:18 Micro: Microbiology 12/10/22 21:20 Urine Culture - Preliminary Urine,Clean Catch 12/10/22 23:14 Blood Culture - Preliminary Blood NEGATIVE TO DATE 12/10/22 23:10 Blood Culture - Preliminary Blood NEGATIVE TO DATE 12/10/22 00:05 MRSA Culture - Final Nose A&P Assessment and plan (1) Septic shock: Severe sepsis present on admission. Source most likely UTI/cystitis. Endorgan damage with acute kidney injury and hypernatremia. Received septic bolus yesterday. Elevated lactate. Follow-up blood culture, urine culture. Preliminary urine culture possibly growing Aerococcus. Repeat lactate. MRSA positive. Continue vancomycin. As patient continues to remain on high Levophed with fluctuating blood pressures and fevers we will switch from Zosyn to meropenem. CT abdomen pelvis results appreciated. Wean Levophed keeping mean arterial pressure over 65. Continue with IV fluids. Switch as per sodium levels. For now start on half NS at 75 cc/h. Check respiratory viral panel. We will repeat blood culture in a.m. Cortisol levels normal. Given the fact the patient at baseline is on carbidopa levodopa which she is not able to get right now as patient is n.p.o. without an NG tube in place as per goals of care there is a risk of patient withdrawing from medications. Both medications on withdrawal can cause mild hypotension and orthostatic hypotension. For now we will give a trial of hydrocortisone 50 mg every 8 hourly. Will wean as per Levophed requirements during the day. While patient is on hydrocortisone we will start on insulin sliding scale every 6 hourly at low-dose protocol. (2) Hypernatremia: Most likely in setting of dehydration from poor oral intake. Resolving. Repeat BMP in evening. For now switch from D5W to half NS at 75 cc/h. Discussed in detail with the family regarding possibility of requirement of NG tube placement. They are agreeable but would want to hold off on as long as possible. (3) JACEK (acute kidney injury): Most likely in setting of severe sepsis/septic shock along with dehydration from poor oral intake. CT abdomen pelvis as above. Resolved since placement of Rich catheterization. Most likely has some degree of obstructive nephropathy as well. Medical reconciliation done for nephrotoxic drugs. Strict input output charting, daily weights. Monitor daily. (4) Cystitis: Follow-up urine cultures. (5) DVT (deep venous thrombosis): Bilateral lower extremity DVT CTA chest negative for PE. Continue with Lovenox 1 mg/kg body weight cupola hourly. We will switch to Eliquis on discharge. (6) Lactic acidosis: Repeat lactate today with reflex. (7) Seizure disorder: Valproic acid level 45.8 Mother reports dose was increased about 6 weeks ago Unclear if patient has been missing doses due to mentation (8) Parkinsons: Takes carbidopa/levodopa at home. Currently not able to get the same as patient is n.p.o. without NG tube. Concerns for withdrawal. Hydrocortisone as above. Morphine 1 mg every 4 hourly as needed. (9) Hypothyroidism: Continue Synthroid. Switch to IV for now. (10) Down syndrome: Continue supportive care (11) Hyperchloremia: Management as above (12) Nonsustained ventricular tachycardia: Occasional episodes. Since placement of PICC line. Monitor magnesium and potassium. Keep potassium around 4, magnesium around 2. Cycle troponins. Patient already on full dose Lovenox for DVT. (13) Bradycardia: Plan Given poor mentation patient is at high risk for aspiration. Keep NPO. Switch oral to IV medications as much as possible. Aggressive pulmonary toilet with chest vest as possible. Analgesia: IV Tylenol every 8 hourly as needed. Dilaudid 1 mg every 4 hourly as needed. Glycemic control: Insulin sliding scale every 6 hourly Giurgius protocol as patient is on high-dose hydrocortisone now Nutrition: Keep n.p.o. for now given poor mentation CODE STATUS: Discussed in detail with patient's DPOA/mother at bedside. Would not want any kind of life support or chest compressions in case the need arises. For status changed to DNR/DNI. PUD prophylaxis: Famotidine IV twice daily DVT prophylaxis: Full dose Lovenox will suffice for DVT prophylaxis. Discharge planning: Back to SNF once medically stable. Continue with care at ICU level. This documentation was created by [employer] corporate communications manager software. Every effort was made to ensure accuracy of corporate communications manager. Any obvious errors or omissions should be clarified with the author of the document. Attestations Medical Necessity Statement*: Requires further hospitalization for management of septic shock in setting of UTI, resolving JACEK and hypernatremia in a patient with baseline Down syndrome Coding Level of Care Code Critical Care >/= 30 minutes Critical care time (in minutes): 90 The high probability of a clinically significant, sudden or life threatening deterioration, as referenced in this documentation, required my full and direct attention, intervention and personal management. The critical care time shown is in addition to time spent performing any reported separately billable procedures and includes the following: [x] Data and vital sign review and interpretation [x] Patient assessment, examination and intervention [x] Medication orders and management [x] Patient/Family updates as able [x] Care Coordination and Documentation. Other Coding Information This patient has a high probability of clinically significant, sudden or life threatening deterioration of the patient's (neurological/pulmonary/cardiac/renal/ID/endocrine) systems required my full, direct attention, the highest level of physician preparedness for urgent intervention and personal management. I managed/supervised life or organ supporting interventions that required frequent physician assessment. I devoted my full attention in the ICU to the direct care of this patient for the period of time indicated above. Time I spent with family or surrogate(s) is included only if the patient was incapable of providing necessary information or participating in decision making. This time includes the following services provided: Telemetry review Hemodynamic interpretation, assessment and management Review and interpretation of CXR Review and interpretation of lab values Review and interpretation of microbiologic data and culture results Review of medications and administration Review and interpretation of Nutrition requirements and management Discussion of management with other consultants and services Clinical update to family members Diagnoses Septic shock A41.9; R65.21 Hypernatremia E87.0 JACEK (acute kidney injury) N17.9 Cystitis N30.90 DVT (deep venous thrombosis) I82.409 Lactic acidosis E87.20 Seizure disorder G40.909 Parkinsons G20 Hypothyroidism E03.9 Down syndrome Q90.9 Hyperchloremia E87.8 Nonsustained ventricular tachycardia I47.29 Bradycardia R00.1
--- NOTE | 2022-12-12 18:46 | PC.NURSE ---
Pt rested in be throughout shift. Pt withdrawing from pain this am, eyes spontaneously opened. This afternoon he did reply Yes to a question and ow to oral care done by family. He was opening his eyes more tracking and smiling at family. at beginning of shift LEvophed at 6mcg/min, he did get up to 9mcg/min this am. Have only been able to decrease back to 7mcg/min. Zosyn stopped, Meripenim started and Vanc continued this shift. He was started on Albumin today, as his albumin level was low at 1.9. His lung sounds were very coarse this am and he was not able to cough up phelgm. Oral suctioning and care provided. Lung sounds improved this sift. PICC placed today. 2 of the 3 peripheral IVs now discontinued. He has had a few runs of VT this am, the longest [address] Pelletier aware. Still awaiting Chemistry results this evening. He was febrile this am , as high as 102.7, after acetaminophen suppository. Tylenol IV admin, it helped pt's tem and agitation considerably. Urine output of 1950 this shift, urine clear yellow. No Bm today. Family has been very attentive and at bedside throughout shift. Mother pats, pets and touches patient constantly. She has been tearful and anxious today.
[2022-12-12 18:49] LABS: Troponin 5 2HR 49.24 ng/L (0-15)
[2022-12-12 19:06] LABS: Blood Urea Nitrogen 11 mg/dL (8-23); Calcium 7.7 mg/dL (8.5-10.5); Carbon Dioxide 22 mmol/L (22-29); Chloride 101 mmol/L (98-107); Glomerular Filtration Rate 85.8 mL/min (90-130); Glucose 446 mg/dL (65-115); Magnesium 1.7 mg/dL (1.7-2.3); Osmolality Calculated 297 mOsm/kg (285-295); Sodium 134 mmol/L (136-145)
[2022-12-12 19:16] LABS: Anion Gap 14.9 (5-19); Potassium 3.9 mmol/L (3.5-5.1)
[2022-12-12 19:17] LABS: Troponin 5 2HR Delta 18.24 ABS# (0-10)
--- NOTE | 2022-12-12 22:00 | PC.NURSE ---
Patient's sister that was at bedside stated that her two daughters are nurses and told her that pt can not be on pressors forever and asked what next steps are. She asked about hospice. I informed daughter at this time that they have the right to have a meeting with provider, case management, and hospice provider if wanted. Informed her that she needed to talk to other family members to be support for patient's mother. She verbalized understanding. Stated she just wanted what is best for patient(her brother). Informed her that pt has been on Levophed for 2 days now and we would just monitor daily. Told pt's sister that MD note stated that anticipated d/c would be back to long term. Pt's sister verb understanding. Pt's sister is aware of how sick pt is at this time and stated that she is thinking ahead if pt has a turn for the worse.
[2022-12-12 22:06] LABS: Troponin 5 6HR 27.88 ng/L (0-15)
[2022-12-12 22:10] LABS: Troponin 5 6HR Delta -3.12 ng/L (0-12)
[2022-12-12 23:15] LABS: Glucose Point of Care 139 mg/dL (70-110)
--- NOTE | 2022-12-12 23:37 | ECG_ITS ---
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 Measurements Intervals [place] Rate: 45 P: 37 NM: 191 QRS: 43 QRSD: 114 T: 30 QT: 474 QTc: 412 Interpretive Statements SINUS BRADYCARDIA WITH MARKED SINUS ARRHYTHMIA MODERATE INTRAVENTRICULAR CONDUCTION DELAY [110+ ms QRS DURATION] Compared to ECG 12/10/2022 12:02:24 Intraventricular conduction delay now present Sinus rhythm no longer present T-wave abnormality no longer present Electronically Signed On 12-13-2022 0:24:52 CDT by Jose Restrepo M.D. [email or web address] [id number]
[2022-12-12] MEDS: vancomycin 1,000 MG in sodium chloride 0.9% 250 ML 250 MG IV (23:45)
[2022-12-12] MEDS: sodium chloride 0.45% 1,000 ML 75 ML IV (23:45)
[2022-12-13] VITALS (93 sets, daily range): BP systolic 74–164; BP diastolic 44–133; PULSE 40–83; RESP 12–33; TEMP 36.2–37.3; O2SAT 91–100
[2022-12-13] MEDS: meropenem 1,000 MG in sodium chloride 0.9% (plus) 50 ML 100 MG IV ×3 (01:47→17:35)
[2022-12-13] MEDS: albumin 25 G/100 ML BAG 60 G IV ×3 (01:49→17:35)
[2022-12-13 02:46] LABS: Adenovirus Not Detected (NOT DETECT); Chlamydia Pneumoniae Not Detected (NOT DETECT); Coronavirus 229E,HKU1,NL63,OC4 Not Detected (NOT DETECT); Human Metapneumovirus Not Detected (NOT DETECT); Human Rhinovirus/Enterovirus Not Detected (NOT DETECT); Influenza A Not Detected (NOT DETECT); Influenza A H1 Not Detected (NOT DETECT); Influenza A H1-2009 Not Detected (NOT DETECT); Influenza A H3 Not Detected (NOT DETECT); Influenza B Not Detected (NOT DETECT); Mycoplasma Pneumoniae Not Detected (NOT DETECT); Parainfluenza Virus Type 1 Not Detected (NOT DETECT); Parainfluenza Virus Type 2 Not Detected (NOT DETECT); Parainfluenza Virus Type 3 Not Detected (NOT DETECT); Parainfluenza Virus Type 4 Not Detected (NOT DETECT); Respiratory Syncytial Virus A Not Detected (NOT DETECT); Respiratory Syncytial Virus B Not Detected (NOT DETECT); SARS-COV-2 Not Detected (NOT DETECT)
[2022-12-13] MEDS: enoxaparin 80 mg/0.8 mL Syringe 70 MG SUBCUT ×2 (03:11→15:14)
[2022-12-13] MEDS: famotidine 20 mg/2 mL INJ IVP ×2 (03:11→17:35)
[2022-12-13 04:23] LABS: Basophils % 0.3 %; Hematocrit 34.5 % (42.0-52.0); Hemoglobin 11.1 g/dL (11.7-16.6); Lymphocytes # 0.7 10^3/uL (0.8-4.8); Lymphocytes % 7.5 %; Mean Corpuscular HGB Conc 32.2 g/dL (30.0-36.0); Mean Corpuscular Hemoglobin 34.9 pg (28.0-34.0); Mean Corpuscular Volume 108.5 fl (80-94); Mean Platelet Volume 12.2 fL (7.4-10.4); Monocytes # 0.2 10^3/uL (0.2-0.9); Monocytes % 2.2 %; Neutrophils # 8.67 10^3/uL (1.8-7.7); Neutrophils % 89.1 %; Nucleated Red Blood Cells % 0 %; Platelet Count 117 10^3/cmm (130-400); Red Blood Count 3.18 10^6/uL (4.1-5.3); Red Cell Distribution Width 15.3 % (12.1-15.1); White Blood Count 9.7 10^3/uL (4.0-10.0)
[2022-12-13 05:36] LABS: Glucose Point of Care 130 mg/dL (70-110)
[2022-12-13] MEDS: valproic acid inj 500 MG in sodium chloride 0.9% 50 ML 55 MG IV ×2 (06:37→15:14)
[2022-12-13 06:42] LABS: Alanine Aminotransferase 10 U/L (0-41); Albumin Level 2.9 g/dL (3.5-5.2); Alkaline Phosphatase 48 U/L (40-130); Anion Gap 9.3 (5-19); Aspartate Amino Transferase 24 U/L (0-40); Blood Urea Nitrogen 13 mg/dL (8-23); Calcium 8.5 mg/dL (8.5-10.5); Carbon Dioxide 27 mmol/L (22-29); Chloride 116 mmol/L (98-107); Glucose 111 mg/dL (65-115); Osmolality Calculated 309 mOsm/kg (285-295); Potassium 3.3 mmol/L (3.5-5.1); Sodium 149 mmol/L (136-145); Total Bilirubin 0.5 mg/dL (0.15-1.2); Total Protein 6.9 g/dL (6.6-8.7)
[2022-12-13] MEDS: hydrocortisone 100 mg/2 mL SDV 50 MG IVP ×2 (06:47→21:15)
[2022-12-13] MEDS: carbidopa-levodopa 25-100mg Tablet 1 EACH PO ×2 (09:37→15:13)
[2022-12-13] MEDS: donepezil 5 MG Tablet PO (09:38)
[2022-12-13] MEDS: polyethylene glycol 3350 Pkt 17 gm PO (09:38)
[2022-12-13] MEDS: sennosides 8.6 mg Tablet PO (09:38)
[2022-12-13] MEDS: tamsulosin 0.4 mg Capsule PO (09:38)
[2022-12-13] MEDS: levothyroxine 100 mcg SDV 75 MCG IVP (09:55)
[2022-12-13] MEDS: dextrose 5%-sod chloride 0.45% 1,000 ML 100 ML IV ×2 (09:57→22:01)
[2022-12-13] MEDS: lidocaine 1% 5 ML in potassium chloride premix 100 ML 26.25 ML IV ×2 (09:57→15:13)
[2022-12-13 10:49] LABS: Glucose Point of Care 117 mg/dL (70-110)
--- NOTE | 2022-12-13 12:26 | PC.SOCIAL ---
Imm updated Imm updated with guardian Estrellita, copy of page 2 explained. Estrellita verbalized understanding. copy in chart initialed, dated and timed.
--- NOTE | 2022-12-13 13:12 | XR_ITS ---
WS: [id number] XR chest 1V portable [id number] REASON FOR EXAM: heart dysrhythmia, check PICC placement FINDINGS: The right arm PICC line tip is distal to the cavoatrial junction at the T10 level. On the last examin ation of the prior day the tip of the PICC line was at the cavoatrial junction at the T9 level after retraction from the initial site after placement. If there is concern for cardiac rhythm disturbance from irritation, retraction of [address] the catheter tip above the cavoatrial junction but we ll within the superior vena cava. , XR/XR chest 1V portable [id number] IMPRESSION: PICC line PICC line position as described above.
--- NOTE | 2022-12-13 13:21 | ECG_ITS ---
[facility] Test Date: 2022-12-13 Pat Name: Marco Bradley Department: Room: ICU12 Gender: Male Education Intern: : 1960 Requested By: Brandyn Ross Order Number: [id number] Reading MD: Sudhir Thornton M.D. Measurements Intervals [place] Rate: 65 P: 66 [place]: 170 QRS: 88 QRSD: 82 T: 42 QT: 394 QTc: 411 Interpretive Statements SINUS RHYTHM WITH FREQUENT VENTRICULAR PREMATURE COMPLEXES NONSPECIFIC ST & T-WAVE ABNORMALITY ABNORMAL RHYTHM ECG Compared to ECG 12/12/2022 23:37:10 Ventricular premature complex(es) now present T-wave abnormality now present Sinus bradycardia no longer present Sinus arrhythmia no longer present Intraventricular conduction delay no longer present Electronically Signed On 12-13-2022 14:20:40 CDT by Sudhir Thornton M.D. [id number]
--- NOTE | 2022-12-13 13:30 | USCV_ITS ---
Marco Bradley Age: 62 Gender: M : 1960 Exam Date: 12/13/2022 16:13 Ordering Phys: Branydn Ross MD Technologist: Bull Landon Exam Location: [facility] [place] Indication: septic shock, bradycardia BP: 91 / 52 HR: 67 Rhythm: Sinus Technical Quality: Adequate MEASUREMENTS (Male / Female) Normal Values 2D ECHO LVOT Diameter 2.1 cm LV Ejection Fraction MOD 2C 59.9 % LV Ejection Fraction 2C AL 59.6 % LA Diameter 3.2 cm LA Width 3.7 cm LA Height 4.0 cm RA Width 4.0 cm RA Height 3.9 cm Aorta at Sinotubular Diameter 2.7 cm M-MODE Aortic Annulus Diameter 2.7 cm LA Ao Ratio MM 1.2 MV E Point Septal Separation 0.2 cm DOPPLER AV Peak Velocity 145.0 cm/s LVOT Peak Velocity 94.0 cm/s AV Area Cont Eq vti 2.1 cm squared AV Area Cont Eq pk 2.2 cm squared MV Peak Velocity 115.0 cm/s MV Area PHT 8.5 cm squared Mitral E to A Ratio 1.3 MV E' Velocity 49.5 cm/s Mitral E to MV E' Ratio 7.2 Mitral E to LV E' Lateral Ratio 6.7 Mitral E to LV E' Septal Ratio 7.8 TR Peak Velocity 211.3 cm/s TR Peak Gradient 17.9 mmHg TR Mean Velocity 177.3 cm/s TR Mean Gradient 12.5 mmHg TR Velocity Time Integral 47.7 cm Right Atrial Pressure 8.0 mmHg Pulmonary Artery Systolic Pressu 25.9 mmHg PV Peak Velocity 130.0 cm/s RV Acceleration Time 0.1 s RV Ejection Time 0.3 s RV AcT/ET 0.5 FINDINGS Left Ventricle Normal left ventricular size and systolic function, EF 68 %. Right Ventricle The right ventricle is normal in size and function. Right Atrium The right atrium is normal in size. Left Atrium The left atrium is normal in size. Mitral Valve Trace mitral valve regurgitation. Aortic Valve Trace to mild aortic valve regurgitation. Tricuspid Valve Trace tricuspid valve regurgitation. Pulmonic Valve Trace pulmonary valve regurgitation. Pericardium Normal pericardium without effusion. Aorta Normal ascending aorta dimension. IVC Inferior vena cava not visualized. CONCLUSIONS Normal left ventricular size and systolic function, EF 68 %. Trace to mild aortic valve regurgitation. Trace mitral valve regurgitation. Trace tricuspid and pulmonic valve regurgitation. There is no pericardial effusion. Technically difficult study because of the poor ultrasonic window. Dr Jose Restrepo MD [facility] (Electronically Signed) Final Date: 13 Dec 2022 23:57 S
--- NOTE | 2022-12-13 16:43 | XRR_ITS ---
PROCEDURE INFORMATION: Exam: XR Chest Exam date and time: 12/13/2022 3:56 PM Age: 62 years old Clinical indication: Device placement; Patient HX: F/u picc line adjustmentpulled back 4 cm; Additional info: Follow up on picc placement , adjusted back 4 cm TECHNIQUE: Imaging protocol: Radiologic exam of the chest. Views: 1 view. COMPARISON: CR XR chest 1V portable [id number] 12/13/2022 12:28 PM FINDINGS: Tubes, catheters and devices: Right PICC line with tip over the distal SVC. . Lungs: Stable opacity in the left lung base. The right lung is clear. Pleural spaces: Unremarkable. No pleural effusion. No pneumothorax. Heart/Mediastinum: Unremarkable. No cardiomegaly. Bones/joints: Unremarkable. XR/XR chest 1V portable [id number] IMPRESSION: 1. Repositioning of the PICC line with tip over the distal SVC. 2. Stable atelectasis or pneumonia in the left base.
[2022-12-13 16:55] LABS: Blood Urea Nitrogen 13 mg/dL (8-23); Carbon Dioxide 25 mmol/L (22-29); Glomerular Filtration Rate 98.3 mL/min (90-130); Glucose 111 mg/dL (65-115)
[2022-12-13 17:49] LABS: Anion Gap 9.7 (5-19); Chloride 114 mmol/L (98-107); Osmolality Calculated 301 mOsm/kg (285-295); Potassium 3.7 mmol/L (3.5-5.1); Sodium 145 mmol/L (136-145)
[2022-12-13 17:54] LABS: Calcium 8.2 mg/dL (8.5-10.5)
[2022-12-13 18:01] LABS: Glucose Point of Care 98 mg/dL (70-110)
--- NOTE | 2022-12-13 18:43 | P.PN_ITS ---
Subjective Subjective: No acute events overnight. Patient has remained hemodynamically stable. Levophed is being turned down. Fluctuating between 2 and 4 today. Currently at 3. Good urine output in last 24 hours. Urine output of around 4 L yesterday. Tmax yesterday up to 100.7 Fahrenheit though has remained afebrile since yesterday evening. Patient is slightly more awake. Had multiple episodes of nonsustained V. tach yesterday. Bradycardic yesterday evening though cannot determine symptomatic versus asymptomatic given baseline mentation. Troponin cycled remain negative. Electrolytes stable. Vitals/I&O/Wt Last Vital Signs Temp 99.2 F 12/13/22 14:00 Pulse 58 L 12/13/22 18:30 Resp 22 H 12/13/22 18:30 BP 102/59 12/13/22 18:30 Pulse Ox 98 12/13/22 18:30 O2 Del Method Room Air 12/13/22 18:30 O2 Flow Rate 2 12/12/22 20:28 12/13/22 12/13/22 12/13/22 06:59 14:59 22:59 Intake Total 571.206 / 1507.204 420.200 / 420.200 851.469 / 1271.669 Output Total 400 / 4050 400 / 400 Balance 171.206 / -2542.796 420.200 / 420.200 451.469 / 871.669 Weight last 48 hrs Weight 73.346 kg Weight 73.346 kg Physical Exam Narrative: General: No acute distress, chronically sick appearing, occasionally following simple commands, looks uncomfortable today HEENT: PERRLA, pupils bilaterally equal and reactive, bilateral radial pulses slightly febrile and fast Chest: Bilateral bronchial breath sounds all over lung barrera with occasional rhonchi, decreased air entry bilaterally in lower zone, conditional airway sound CVS: S1-S2 regular, no murmurs, tachycardia, no gallops, no rubs Abdomen: Soft, seems to be having tenderness in the right lower quadrant, no org anomegaly, bowel sounds present Neuro: No focal deficits, no facial deformity, moving all limbs Urinary Catheter Management: Rich: Cath Placed During This Visit: yes Reason for Continuing Indwelling Catheter: Accurate Measurement of Urinary Output in Critically Ill Patients Urinary Catheter Date of Insertion: 12/11/22 Urinary Catheter Time of Insertion: 12:41 Data 12/13/22 03:24 12/13/22 17:06 Micro: Microbiology 12/10/22 21:20 Urine Culture - Preliminary Urine,Clean Catch 12/13/22 03:24 Blood Culture - Preliminary Blood SPECIMEN COLLECTED 12/13/22 03:40 Blood Culture - Preliminary Blood SPECIMEN COLLECTED A&P Assessment and plan (1) Septic shock: Severe sepsis present on admission. Source most likely UTI/cystitis. Endorgan damage with acute kidney injury and hypernatremia. Follow-up blood culture, urine culture. Preliminary urine culture possibly growing Aerococcus. Repeat lactate. MRSA positive. Continue vancomycin and meropenem. We will try to continue antibiotics for at least [address] abdomen pelvis results appreciated. Wean Levophed keeping mean arterial pressure over 65. Continue with IV fluids at 100 cc/h. Switch as per sodium levels. Continue with hydrocortisone 50 mg every 12 hourly. Will we will further work in a.m. tomorrow. (2) Hypernatremia: Most likely in setting of dehydration from poor oral intake. Resolved. Repeat BMP in evening. Continue with D5 half NS at 100 cc/h. Discussed in detail with the family regarding possibility of requirement of NG tube placement. They are agreeable but would want to hold off on as long as possible. (3) JACEK (acute kidney injury): Most likely in setting of severe sepsis/septic shock along with dehydration from poor oral intake. CT abdomen pelvis as above. Resolved since placement of Rich catheterization. Most likely has some degree of obstructive nephropathy as well. Medical reconciliation done for nephrotoxic drugs. Strict input output charting, daily weights. Monitor daily. (4) Cystitis: Follow-up urine cultures. (5) DVT (deep venous thrombosis): Bilateral lower extremity DVT CTA chest negative for PE. Continue with Lovenox 1 mg/kg body weight cupola hourly. We will switch to Eliquis on discharge. (6) Lactic acidosis: Repeat lactate today with reflex. (7) Seizure disorder: Valproic acid level 45.8 Mother reports dose was increased about 6 weeks ago Unclear if patient has been missing doses due to mentation (8) Parkinsons: Takes carbidopa/levodopa at home. Currently not able to get the same as patient is n.p.o. without NG tube. Concerns for withdrawal. Hydrocortisone as above. Morphine 1 mg every 4 hourly as needed. (9) Hypothyroidism: Continue Synthroid. Switch to IV for now. (10) Down syndrome: Continue supportive care (11) Hyperchloremia: Management as above (12) Nonsustained ventricular tachycardia: Occasional episodes. Since placement of PICC line. Monitor magnesium and potassium. Keep potassium around 4, magnesium around 2. Check chest x-ray and position PICC line to be at the proximal SVC. Even after repositioning patient can have bradycardia and SA node dysfunction for 24 hours. Troponin cycled negative. Patient already on full dose Lovenox for DVT. (13) Bradycardia: Plan Given poor mentation patient is at high risk for aspiration. Keep NPO. Switch oral to IV medications as much as possible. Aggressive pulmonary toilet with chest vest as possible. Analgesia: IV Tylenol every 8 hourly as needed. Dilaudid 1 mg every 4 hourly as needed. Glycemic control: Insulin sliding scale every 6 hourly Giurgius protocol as patient is on high-dose hydrocortisone now Nutrition: Keep n.p.o. for now given poor mentation CODE STATUS: Discussed in detail with patient's DPOA/mother at bedside. Would not want any kind of life support or chest compressions in case the need arises. For status changed to DNR/DNI. PUD prophylaxis: Famotidine IV twice daily DVT prophylaxis: Full dose Lovenox will suffice for DVT prophylaxis. Discharge planning: Back to SNF once medically stable. Plan for the day: Continue with vancomycin and meropenem. Repeat Levophed keeping mean artery pressure 65. Chest x-ray and reposition PICC line. Monitor for arrhythmia. Keep magnesium over 2, potassium around 4. If mentation continues to improve we will plan for speech evaluation in a.m. to see if diet can be started. Try Sinemet if possible with applesauce today. Monitor urine output. Plan to keep intake and output equal if possible. Follow-up blood culture and urine culture. Continue with care at ICU level. This documentation was created by [email or web address] order puller software. Every effort was made to ensure accuracy of order puller. Any obvious errors or omissions should be clarified with the author of the document. Attestations Medical Necessity Statement*: Requires further hospitalization for management of septic shock in setting of UTI/cystitis, significant pulmonary embolism Coding Level of Care Code Critical Care >/= 30 minutes Critical care time (in minutes): 70 The high probability of a clinically significant, sudden or life threatening deterioration, as referenced in this documentation, required my full and direct attention, intervention and personal management. The critical care time shown is in addition to time spent performing any reported separately billable procedures and includes the following: [x] Data and vital sign review and interpretation [x ] Patient assessment, examination and intervention [x] Medication orders and management [x] Patient/Family updates as able [x] Care Coordination and Documentation. Other Coding Information This patient has a high probability of clinically significant, sudden or life threatening deterioration of the patient's (neurological/pulmonary/cardiac/renal/ID/endocrine) systems required my full, direct attention, the highest level of physician preparedness for urgent intervention and personal management. I managed/supervised life or organ supporting interventions that required frequent physician assessment. I devoted my full attention in the ICU to the direct care of this patient for the period of time indicated above. Time I spent with family or surrogate(s) is included only if the patient was incapable of providing necessary information or participating in decision making. This time includes the following services provided: Telemetry review Noninvasive ventilation Hemodynamic interpretation, assessment and management Review and interpretation of CXR Review and interpretation of lab values Review and interpretation of microbiologic data and culture results Review of medications and administration Review and interpretation of Nutrition requirements and management Discussion of management with other consultants and services Clinical update to family members Diagnoses Septic shock A41.9; R65.21 Hypernatremia E87.0 JACEK (acute kidney injury) N17.9 Cystitis N30.90 DVT (deep venous thrombosis) I82.409 Lactic acidosis E87.20 Seizure disorder G40.909 Parkinsons G20 Hypothyroidism E03.9 Down syndrome Q90.9 Hyperchloremia E87.8 Nonsustained ventricular tachycardia I47.29 Bradycardia R00.1
--- NOTE | 2022-12-13 19:08 | PC.NURSE ---
Pt rested in bed throughout shift. Family remains at bedside very attentive. Mother seems less anxious today. Pt given replacement potassium and Mag today. Levophed 1.5-5 mcg/min., he was not quite ready to have it weaned off . Some oral meds admin today, crushed in applesauce. He has had several episodes of VT today, just a few beats. Unable to tell if pt dizzy at these times. He is saying a word or two today and spending more time looking around at his family. He has been on room air throughout shift. His PICC line had migrated in too far, it was readjusted back out 4cm and secured with steri-strips. No Bm noted this shift. He had 500ml of straw colored urine today.
[2022-12-13 22:30] LABS: Vancomycin Trough 8.3 ug/mL (10-15)
[2022-12-14] VITALS (48 sets, daily range): BP systolic 83–138; BP diastolic 46–102; PULSE 42–93; RESP 14–27; TEMP 36.4–37.1; O2SAT 89–98
[2022-12-14] MEDS: valproic acid inj 500 MG in sodium chloride 0.9% 50 ML 55 MG IV ×4 (00:03→22:57)
[2022-12-14] MEDS: vancomycin 1,000 MG in sodium chloride 0.9% 250 ML 250 MG IV ×2 (00:10→16:56)
[2022-12-14 00:59] LABS: Glucose Point of Care 115 mg/dL (70-110)
[2022-12-14] MEDS: albumin 25 G/100 ML BAG 60 G IV ×3 (01:30→18:00)
[2022-12-14] MEDS: meropenem 1,000 MG in sodium chloride 0.9% (plus) 50 ML 100 MG IV ×3 (01:54→18:10)
--- NOTE | 2022-12-14 02:14 | PC.PHAR ---
Pharmacokinetic dosing service Date: 12/14/22 Time: 213 Patient: Floor: ICU-12 Weight: 73.346 Kilograms Vancomycin single level analysis: Current dose being given: 1000mg Current dosing interval: 24 hrs Current infusion time (hrs): 1 Single level Trough Data: Trough level obtained: 8.3 mcg/ml Timing of trough - # of hrs before next dose: 1.1 Hrs Desired peak: 40 mcg/ml Desired trough: 15 mcg/ml Diagnosis: Relevant medical/social history: Cultures and sensitivities: Other labs: Estimated PK Parameters: New rate constant (teresa): 0.045 hr-1 Half-life: 15.40 Hours Vd from levels: 66.01 Liters (0.7 L/kg) CLvanco=?? 2.970 L/hr Estimated New Dose and Interval Recommended dose: 1732.4 mg Recommended interval: 22.8 Hrs Patient response: Patient is responding to treatment [yes/no] wbc decreasing, S/SX reduced [yes/no] Renal function is stable/unstable Recommendations: Give Vancomycin 1000 mg q 18 hrs. Infuse over 1 hrs Expected Cpeak: 26.7 mcg/mL Expected Ctrough: 12.4 mcg/mL AUC 0-24 /DEV Data: DEV 0.5 mcg/mL:?? AUC/DEV:? 897.9 DEV 1.0 mcg/mL:?? AUC/DEV:? 448.9 Recommended labs and intervals: Measure Bun and Scr 3 times/week. Renal dosing of other antibiotics (review renal dosing of other medications and list guidelines here): Thank you for the consult, will continue to follow. Signature: Margi Barriga formerly [facility]
[2022-12-14] MEDS: enoxaparin 80 mg/0.8 mL Syringe 70 MG SUBCUT ×2 (03:20→15:40)
[2022-12-14] MEDS: famotidine 20 mg/2 mL INJ IVP ×2 (03:20→16:56)
[2022-12-14 04:54] LABS: Basophils % 0.4 %; Hemoglobin 9.4 g/dL (11.7-16.6); Lymphocytes # 0.9 10^3/uL (0.8-4.8); Lymphocytes % 10.9 %; Mean Corpuscular HGB Conc 31.3 g/dL (30.0-36.0); Mean Corpuscular Hemoglobin 33.7 pg (28.0-34.0); Mean Corpuscular Volume 107.5 fl (80-94); Mean Platelet Volume 12.4 fL (7.4-10.4); Monocytes # 0.3 10^3/uL (0.2-0.9); Monocytes % 3.5 %; Neutrophils # 6.62 10^3/uL (1.8-7.7); Neutrophils % 82.9 %; Nucleated Red Blood Cells % 0.4 %; Platelet Count 108 10^3/cmm (130-400); Red Blood Count 2.79 10^6/uL (4.1-5.3); Red Cell Distribution Width 16.2 % (12.1-15.1)
[2022-12-14 05:11] LABS: Alanine Aminotransferase 7 U/L (0-41); Albumin Level 3.5 g/dL (3.5-5.2); Alkaline Phosphatase 47 U/L (40-130); Blood Urea Nitrogen 12 mg/dL (8-23); Calcium 8.4 mg/dL (8.5-10.5); Carbon Dioxide 24 mmol/L (22-29); Chloride 113 mmol/L (98-107); Globulin 3.3 g/dL (1.3-4.6); Glomerular Filtration Rate 98.3 mL/min (90-130); Glucose 121 mg/dL (65-115); Osmolality Calculated 303 mOsm/kg (285-295); Sodium 146 mmol/L (136-145); Total Bilirubin 0.4 mg/dL (0.15-1.2); Total Protein 6.8 g/dL (6.6-8.7)
[2022-12-14 05:15] LABS: Aspartate Amino Transferase 26 U/L (0-40)
[2022-12-14] MEDS: hydrocortisone 100 mg/2 mL SDV 50 MG IVP (06:12)
[2022-12-14] MEDS: dextrose 5%-sod chloride 0.45% 1,000 ML 100 ML IV ×2 (09:16→09:26)
[2022-12-14] MEDS: tamsulosin 0.4 mg Capsule PO (09:27)
[2022-12-14] MEDS: donepezil 5 MG Tablet PO (09:27)
[2022-12-14] MEDS: levothyroxine 100 mcg SDV 75 MCG IVP (09:27)
[2022-12-14] MEDS: carbidopa-levodopa 25-100mg Tablet 1 EACH PO ×3 (09:27→22:57)
[2022-12-14 11:49] LABS: Glucose Point of Care 121 mg/dL (70-110)
[2022-12-14] MEDS: dextrose 5% 1,000 ML 75 ML IV (12:18)
--- NOTE | 2022-12-14 13:18 | P.PN_ITS ---
Subjective Subjective: No acute events overnight. Patient is doing better now. Has been off Levophed overnight and mean artery pressure has been maintained over 65. Patient is more awake and alert. As per family he is back to his baseline though still dozing off on and off in between. Remains on room air today. Urine output in last 24 hours around 900 cc. Vitals/I&O/Wt Last Vital Signs Temp 98.8 F 12/14/22 07:30 Pulse 50 L 12/14/22 09:54 Resp 18 12/14/22 09:54 BP 107/57 12/14/22 07:40 Pulse Ox 96 12/14/22 09:54 O2 Del Method Room Air 12/14/22 09:54 O2 Flow Rate 2 12/12/22 20:28 12/13/22 12/14/22 12/14/22 22:59 06:59 14:59 Intake Total 1225.223 / 1645.423 509.423 / 2154.846 1016.667 / 1016.667 Output Total 600 / 600 300 / 900 Balance 625.223 / 1045.423 209.423 / 2038.856 4835.667 / 1016.667 Weight last 48 hrs Weight 72.575 kg Weight 73.346 kg Physical Exam Narrative: General: No acute distress, chronically sick appearing, occasionally following simple commands, looks comfortable today HEENT: PERRLA, pupils bilaterally equal and reactive, bilateral radial pulses slightly febrile and fast Chest: Bilateral bronchial breath sounds all over lung barrera with occasional rhonchi, decreased air entry bilaterally in lower zone, conditional airway sound CVS: S1-S2 regular, no murmurs, tachycardia, no gallops, no rubs Abdomen: Soft, seems to be having tenderness in the right lower quadrant, no organomegaly, bowel sounds present Neuro: No focal deficits, no facial deformity, moving all limbs Urinary Catheter Management: Rich: Cath Placed During This Visit: yes Reason for Continuing Indwelling Catheter: Accurate Measurement of Urinary Output in Critically Ill Patients Urinary Catheter Date of Insertion: 12/11/22 Urinary Catheter Time of Insertion: 12:41 Data 12/14/22 03:58 12/14/22 03:58 Micro: Microbiology 12/10/22 21:20 Urine Culture - Preliminary Urine,Clean Catch Aerococcus urinae 12/13/22 03:24 Blood Culture - Preliminary Blood NEGATIVE TO DATE 12/13/22 03:40 Blood Culture - Preliminary Blood NEGATIVE TO DATE A&P Assessment and plan (1) Septic shock: Severe sepsis present on admission. Source most likely UTI/cystitis. Endorgan damage with acute kidney injury and hypernatremia. Blood cultures so far negative. Urine culture growing Aerococcus. Sensitivities awaited. MRSA positive. Continue vancomycin and meropenem. We will try to continue antibiotics for at least [address] abdomen pelvis results appreciated. Wean Levophed keeping mean arterial pressure over 65. Continue with IV fluids at 100 cc/h. Switch as per sodium levels. Wean hydrocortisone to 50 mg IV daily. Will wean down aggressively within next 48 hours. (2) Hypernatremia: Most likely in setting of dehydration from poor oral intake. Resolved. Repeat BMP in evening. Continue with D5 at 100 cc/h. Discussed in detail with the family regarding possibility of requirement of NG tube placement. They are agreeable but would want to hold off on as long as possible. (3) JACEK (acute kidney injury): Most likely in setting of severe sepsis/septic shock along with dehydration from poor oral intake. CT abdomen pelvis as above. Resolved since placement of Rich catheterization. Most likely has some degree of obstructive nephropathy as well. Medical reconciliation done for nephrotoxic drugs. Strict input output charting, daily weights. Monitor daily. (4) Cystitis: Follow-up urine cultures. (5) DVT (deep venous thrombosis): Bilateral lower extremity DVT CTA chest negative for PE. Continue with Lovenox 1 mg/kg body weight cupola hourly. We will switch to Eliquis on discharge. (6) Lactic acidosis: Repeat lactate today with reflex. (7) Seizure disorder: Valproic acid level 45.8 Mother reports dose was increased about 6 weeks ago Unclear if patient has been missing doses due to mentation (8) Parkinsons: Takes carbidopa/levodopa at home. Currently not able to get the same as patient is n.p.o. without NG tube. Concerns for withdrawal. Hydrocortisone as above. Morphine 1 mg every 4 hourly as needed. (9) Hypothyroidism: Continue Synthroid. Switch to IV for now. (10) Down syndrome: Continue supportive care (11) Hyperchloremia: Management as above (12) Nonsustained ventricular tachycardia: Occasional episodes. Since placement of PICC line. Monitor magnesium and potassium. Keep potassium around 4, magnesium around 2. Check chest x-ray and position PICC line to be at the proximal SVC. Even after repositioning patient can have bradycardia and SA node dysfunction for 24 hours. Troponin cycled negative. Patient already on full dose Lovenox for DVT. (13) Bradycardia: Plan Given poor mentation patient is at high risk for aspiration. Keep NPO. Switch oral to IV medications as much as possible. Aggressive pulmonary toilet with chest vest as possible. Analgesia: IV Tylenol every 8 hourly as needed. Dilaudid 1 mg every 4 hourly as needed. Glycemic control: Insulin sliding scale every 6 hourly Giurgius protocol as patient is on high-dose hydrocortisone now Nutrition: Keep n.p.o. for now given poor mentation CODE STATUS: Discussed in detail with patient's DPOA/mother at bedside. Would not want any kind of life support or chest compressions in case the need arises. For status changed to DNR/DNI. PUD prophylaxis: Famotidine IV twice daily DVT prophylaxis: Full dose Lovenox will suffice for DVT prophylaxis. Discharge planning: Back to SNF once medically stable. Plan for the day: Monitor blood cultures and urine culture. Urine cultures growing Aerococcus. Awaiting sensitivities. MRSA positive. For now continue vancomycin and meropenem. Speech therapy and advance diet accordingly. Keep neuro pressure 65. Monitor telemetry and blood pressures. If able to start on diet will start on oral medications. Monitor urine output for 1 more day and DC Hilario in a.m. Goals of care discussion: Discussed in detail with the patient's family at bedside that given his baseline Down syndrome he would always be at higher risk of dehydration from poor oral intake more so now as currently he requires medical therapy 2 to 2-1/2 L of oral intake daily which is going to be difficult given his poor mentation which is almost back to his baseline as per his family. We discussed that biggest concern now is that even if he improves sodium level to normal prior to discharge that he will have recurrence of hypernatremia and altered mental status because of poor oral intake. We discussed going forward if that happens the only 2 options would be either to have PEG tube placed or go on hospice. We also discussed that patient has been having recurrent episodes of bradycardia with heart rate sometimes going down to low 40s which could be secondary to sinus node dysfunction given baseline Down syndrome. Also discussed that in his case it will be difficult to determine if it is symptomatic or asymptomatic given baseline poor mentation. Treatment options for this would be a possible pacemaker implantation. Family given all the options. They will think about it further and get back to us. Discharge planning: Plan to discharge back to alf within next 24 to 48 hours if patient remains hemodynamically stable on oral antibiotics blood culture sensitivity is back and patient is able to tolerate orally. Continue with ICU care for now. If remains hemodynamically stable we will plan to transfer to [facility] in a.m. This documentation was created by [employer] business systems technician software. Every effort was made to ensure accuracy of business systems technician. Any obvious errors or omissions should be clarified with the author of the document. Attestations Medical Necessity Statement*: Requires further hospitalization for management of resolving severe sepsis in a patient with UTI, baseline Down syndrome, hypernatremia Coding Level of Care Code Critical Care >/= 30 minutes Critical care time (in minutes): 80 The high probability of a clinically significant, sudden or life threatening deterioration, as referenced in this documentation, required my full and direct attention, intervention and personal management. The critical care time shown is in addition to time spent performing any reported separately billable procedures and includes the following: [x] Data and vital sign review and interpretation [x ] Patient assessment, examination and intervention [x] Medication orders and management [x] Patient/Family updates as able [x] Care Coordination and Documentation. Other Coding Information This patient has a high probability of clinically significant, sudden or life threatening deterioration of the patient's (neurological/pulmonary/cardiac/renal/ID/endocrine) systems required my full, direct attention, the highest level of physician preparedness for urgent intervention and personal management. I managed/supervised life or organ supporting interventions that required frequent physician assessment. I devoted my full attention in the ICU to the direct care of this patient for the period of time indicated above. Time I spent with family or surrogate(s) is included only if the patient was incapable of providing necessary information or participating in decision making. This time includes the following services provided: Telemetry review Non invasive ventilation Hemodynamic interpretation, assessment and management Review and interpretation of CXR Review and interpretation of lab values Review and interpretation of microbiologic data and culture results Review of medications and administration Review and interpretation of Nutrition requirements and management Discussion of management with other consultants and services Clinical update to family members Diagnoses Septic shock A41.9; R65.21 Hypernatremia E87.0 JACEK (acute kidney injury) N17.9 Cystitis N30.90 DVT (deep venous thrombosis) I82.409 Lactic acidosis E87.20 Seizure disorder G40.909 Parkinsons G20 Hypothyroidism E03.9 Down syndrome Q90.9 Hyperchloremia E87.8 Nonsustained ventricular tachycardia I47.29 Bradycardia R00.1
[2022-12-14 16:13] LABS: Anion Gap 12.5 (5-19); Blood Urea Nitrogen 11 mg/dL (8-23); Calcium 8.3 mg/dL (8.5-10.5); Carbon Dioxide 24 mmol/L (22-29); Chloride 110 mmol/L (98-107); Glomerular Filtration Rate 98.3 mL/min (90-130); Glucose 111 mg/dL (65-115); Osmolality Calculated 296 mOsm/kg (285-295); Potassium 3.5 mmol/L (3.5-5.1); Sodium 143 mmol/L (136-145)
[2022-12-14 17:33] LABS: Glucose Point of Care 104 mg/dL (70-110)
[2022-12-14] MEDS: sennosides 8.6 mg Tablet PO (18:00)
[2022-12-14] MEDS: polyethylene glycol 3350 Pkt 17 gm PO (18:00)
--- NOTE | 2022-12-14 20:01 | PC.NURSE ---
Pt has been more alert today. He has spoken more today but it is still just OW', Yes or no. Levophed remained off throughout this shift. His IV fluids changed to D5W today, due to his sodium level. PICC has remained secured and intact. Sinus arrhythmia, bradycardia continues. He has had an occasional PVC , singularly and 3-4 beat runs. He was able to take more oral meds today, crushed in applesauce. Speech eval completed this afternoon. . Pt now has a diet ordered, which he ate a small portion of his dinner. Bath and shaving provided. He has remained afebrile this shift. Urine output of 550 noted, still straw colored. No BM noted this sift. His skin is still intact with no pressure areas noted.
[2022-12-14 22:27] LABS: Glucose Point of Care 89 mg/dL (70-110)
[2022-12-15] VITALS (17 sets, daily range): BP systolic 92–129; BP diastolic 49–72; PULSE 39–70; RESP 15–25; TEMP 36.2–37.1; O2SAT 92–99; BMI 27.1
[2022-12-15] MEDS: albumin 25 G/100 ML BAG 60 G IV ×3 (01:03→16:03)
[2022-12-15] MEDS: dextrose 5% 1,000 ML 75 ML IV (01:07)
[2022-12-15] MEDS: meropenem 1,000 MG in sodium chloride 0.9% (plus) 50 ML 100 MG IV ×3 (02:09→17:05)
[2022-12-15] MEDS: enoxaparin 80 mg/0.8 mL Syringe 70 MG SUBCUT ×2 (02:24→15:40)
[2022-12-15 04:26] LABS: Basophils % 0.8 %; Eosinophils % 0.2 %; Hematocrit 26.7 % (42.0-52.0); Hemoglobin 8.3 g/dL (11.7-16.6); Lymphocytes # 1.7 10^3/uL (0.8-4.8); Lymphocytes % 36.6 %; Mean Corpuscular HGB Conc 31.1 g/dL (30.0-36.0); Mean Corpuscular Hemoglobin 34.3 pg (28.0-34.0); Mean Corpuscular Volume 110.3 fl (80-94); Mean Platelet Volume 12.8 fL (7.4-10.4); Monocytes # 0.3 10^3/uL (0.2-0.9); Monocytes % 5.5 %; Neutrophils % 52.5 %; Nucleated Red Blood Cells # 0.1 /100WBC; Nucleated Red Blood Cells % 1.5 %; Platelet Count 90 10^3/cmm (130-400); Red Blood Count 2.42 10^6/uL (4.1-5.3); Red Cell Distribution Width 16.6 % (12.1-15.1); White Blood Count 4.8 10^3/uL (4.0-10.0)
[2022-12-15 04:49] LABS: Alanine Aminotransferase 10 U/L (0-41); Albumin Level 3.1 g/dL (3.5-5.2); Alkaline Phosphatase 48 U/L (40-130); Aspartate Amino Transferase 31 U/L (0-40); Blood Urea Nitrogen 11 mg/dL (8-23); Calcium 7.5 mg/dL (8.5-10.5); Carbon Dioxide 23 mmol/L (22-29); Chloride 102 mmol/L (98-107); Globulin 2.6 g/dL (1.3-4.6); Glomerular Filtration Rate 85.8 mL/min (90-130); Glucose 404 mg/dL (65-115); Osmolality Calculated 294 mOsm/kg (285-295); Sodium 134 mmol/L (136-145); Total Bilirubin 0.4 mg/dL (0.15-1.2); Total Protein 5.7 g/dL (6.6-8.7)
[2022-12-15 04:52] LABS: Anion Gap 12.3 (5-19); Potassium 3.3 mmol/L (3.5-5.1)
[2022-12-15] MEDS: famotidine 20 mg/2 mL INJ IVP ×2 (04:54→15:40)
[2022-12-15 05:25] LABS: Glucose Point of Care 81 mg/dL (70-110)
[2022-12-15] MEDS: valproic acid inj 500 MG in sodium chloride 0.9% 50 ML 55 MG IV ×3 (07:43→22:35)
[2022-12-15] MEDS: levothyroxine 100 mcg SDV 75 MCG IVP (08:57)
[2022-12-15] MEDS: tamsulosin 0.4 mg Capsule PO (08:57)
[2022-12-15] MEDS: carbidopa-levodopa 25-100mg Tablet 1 EACH PO ×3 (08:57→20:35)
[2022-12-15] MEDS: donepezil 5 MG Tablet PO (08:57)
[2022-12-15] MEDS: sennosides 8.6 mg Tablet PO ×2 (08:57→17:05)
[2022-12-15] MEDS: hydrocortisone 100 mg/2 mL SDV 50 MG IVP (08:58)
[2022-12-15] MEDS: lidocaine 1% 5 ML in potassium chloride premix 100 ML 26.25 ML IV (10:16)
[2022-12-15] MEDS: dextrose 5%-sod chloride 0.9% 1,000 ML 75 ML IV ×2 (10:18→23:50)
[2022-12-15] MEDS: vancomycin 1,000 MG in sodium chloride 0.9% 250 ML 250 MG IV (10:19)
[2022-12-15 11:25] LABS: Glucose Point of Care 95 mg/dL (70-110)
--- NOTE | 2022-12-15 12:31 | PC.NURSE ---
Report given to Carmita GOTTLIEB, patient transferred to 2nd floor room 259-1. Family and belongings at bedside. Patient resting comfortably in bed on room air at time of transfer.
--- NOTE | 2022-12-15 12:44 | PC.SOCIAL ---
IMM Updated Updated pt's family on IMM. No questions voiced. Provided pt's family a copy. Initialed, dated, & timed copy in chart.
--- NOTE | 2022-12-15 13:40 | P.PN_ITS ---
Subjective Subjective: No acute events overnight. Patient remains on room air. Patient remains off Levophed. Family at bedside. Patient is awake and is at his baseline mentation. As per nurse patient still having issues with swallowing specially pulling of the food at the back of his throat. As per the patient's sister this is how he eats even at the retirement and his mother goes to retirement daily 3 times a day to feed him. Sister asking if hospice could be appropriate for the patient given poor quality of life. We discussed that it is possible that his mentation will take a long time to improve if daughter continues to be back to his baseline which is not too different from words today and his oral intake would be poor which can cause him to have multiple episodes of hypernatremia or worsening mentation and put him in a vicious cycle of getting worsening mentation going forward but that cannot be said for sure right now. If that happens and he has multiple admissions going forward because of hypernatremia, poor mentation or infections then hospice would be appropriate. Sister is agreeable. She would like for patient to go back to retirement then would decide from there if hospice is needed. She does not want patient to get admitted multiple times. Vitals/I&O/Wt Last Vital Signs Temp 98.0 F 12/15/22 07:00 Pulse 42 L 12/15/22 10:00 Resp 19 H 12/15/22 10:00 BP 116/68 12/15/22 10:00 Pulse Ox 97 12/15/22 10:00 O2 Del Method Room Air 12/15/22 12:44 O2 Flow Rate 2 12/12/22 20:28 12/14/22 12/15/22 12/15/22 22:59 06:59 14:59 Intake Total 1505 / 2691.667 1196.25 / 3887.917 305 / 305 Output Total 900 / 900 300 / 1200 Balance 605 / 1791.667 896.25 / 2687.917 305 / 305 Weight last 48 hrs Weight 72.257 kg Weight 72.575 kg Physical Exam Narrative: General: No acute distress, chronically sick appearing, occasionally following simple commands, looks comfortable today HEENT: PERRLA, pupils bilaterally equal and reactive, bilateral radial pulses slightly febrile and fast Chest: Bilateral bronchial breath sounds all over lung barrera with occasional rhonchi, decreased air entry bilaterally in lower zone, conditional airway sound CVS: S1-S2 regular, no murmurs, tachycardia, no gallops, no rubs Abdomen: Soft, seems to be having tenderness in the right lower quadrant, no organomegaly, bowel sounds present Neuro: No focal deficits, no facial deformity, moving all limbs Urinary Catheter Management: Rich: Cath Placed During This Visit: yes Reason for Continuing Indwelling Catheter: Accurate Measurement of Urinary Output in Critically Ill Patients Urinary Catheter Date of Insertion: 12/11/22 Urinary Catheter Time of Insertion: 12:41 Data 12/15/22 03:49 12/15/22 03:49 Micro: Microbiology 12/10/22 21:20 Urine Culture - Preliminary Urine,Clean Catch Aerococcus urinae A&P Assessment and plan (1) Septic shock: Severe sepsis present on admission. Source most likely UTI/cystitis. Endorgan damage with acute kidney injury and hypernatremia. Blood cultures so far negative. Urine culture growing Aerococcus. Sensitivities awaited. MRSA positive. Continue vancomycin and meropenem. We will try to continue antibiotics for at least [address] abdomen pelvis results appreciated. Wean Levophed keeping mean arterial pressure over 65. Continue with IV fluids at 100 cc/h. Switch as per sodium levels. Wean hydrocortisone to 50 mg IV daily. Will wean down aggressively within next 48 hours. (2) Hypernatremia: Most likely in setting of dehydration from poor oral intake. Resolved. Repeat BMP in evening. Continue with D5 at 100 cc/h. Discussed in detail with the family regarding possibility of requirement of NG tube placement. They are agreeable but would want to hold off on as long as possible. (3) JACEK (acute kidney injury): Most likely in setting of severe sepsis/septic shock along with dehydration from poor oral intake. CT abdomen pelvis as above. Resolved since placement of Rich catheterization. Most likely has some degree of obstructive nephropathy as well. Medical reconciliation done for nephrotoxic drugs. Strict input output charting, daily weights. Monitor daily. (4) Cystitis: Follow-up urine cultures. (5) DVT (deep venous thrombosis): Bilateral lower extremity DVT CTA chest negative for PE. Continue with Lovenox 1 mg/kg body weight cupola hourly. We will switch to Eliquis on discharge. (6) Lactic acidosis: Repeat lactate today with reflex. (7) Seizure disorder: Valproic acid level 45.8 Mother reports dose was increased about 6 weeks ago Unclear if patient has been missing doses due to mentation (8) Parkinsons: Takes carbidopa/levodopa at home. Currently not able to get the same as patient is n.p.o. without NG tube. Concerns for withdrawal. Hydrocortisone as above. Morphine 1 mg every 4 hourly as needed. (9) Hypothyroidism: Continue Synthroid. Switch to IV for now. (10) Down syndrome: Continue supportive care (11) Hyperchloremia: Management as above (12) Nonsustained ventricular tachycardia: Occasional episodes. Since placement of PICC line. Monitor magnesium and potassium. Keep potassium around 4, magnesium around 2. Check chest x-ray and position PICC line to be at the proximal SVC. Even after repositioning patient can have bradycardia and SA node dysfunction for 24 hours. Troponin cycled negative. Patient already on full dose Lovenox for DVT. (13) Bradycardia: (14) Goals of care, counseling/discussion: Plan Given poor mentation patient is at high risk for aspiration. Keep NPO. Switch oral to IV medications as much as possible. Aggressive pulmonary toilet with chest vest as possible. Analgesia: IV Tylenol every 8 hourly as needed. Dilaudid 1 mg every 4 hourly as needed. Glycemic control: Insulin sliding scale every 6 hourly Giurgius protocol as patient is on high-dose hydrocortisone now Nutrition: Keep n.p.o. for now given poor mentation CODE STATUS: Discussed in detail with patient's DPOA/mother at bedside. Would not want any kind of life support or chest compressions in case the need arises. For status changed to DNR/DNI. PUD prophylaxis: Famotidine IV twice daily DVT prophylaxis: Full dose Lovenox will suffice for DVT prophylaxis. Discharge planning: Back to SNF once medically stable. Plan for the day: Continue to follow cultures. Urine culture growing Aerococcus. Awaiting sensitivities. For now continue with vancomycin and meropenem. Plan to DC Rich in a.m. Advance diet or change diet as per speech therapy. Switch fluid to D5 NS at 75 cc/h. Transfer to [facility] floor. Goals of care discussion: 12/15: As per patient's sister they would not want him to get a PEG tube or a pacemaker. Sister hospice. States that chronically this is the medication he has not family would want to have quality of life and quality of life. States her mother German 3 times in the retirement to keep the patient. We discussed that there is a high chance that his mentation would take a long time to improve back to his baseline and my biggest worry is that he would not be able to maintain his oral intake causing him to have dehydration again leading to hyponatremia and worsening of mental status which could set him up into a vicious cycle. Sister states if that happens they would rather not have him come back to the hospital as they were making hospice at the retirement. 12/14: Discussed in detail with the patient's family at bedside that given his baseline Down syndrome he would always be at higher risk of dehydration from poor oral intake more so now as currently he requires medical therapy 2 to 2-1/2 L of oral intake daily which is going to be difficult given his poor mentation which is almost back to his baseline as per his family. We discussed that biggest concern now is that even if he improves sodium level to normal prior to discharge that he will have recurrence of hypernatremia and altered mental status because of poor oral intake. We discussed going forward if that happens the only 2 options would be either to have PEG tube placed or go on hospice. We also discussed that patient has been having recurrent episodes of bradycardia with heart rate sometimes going down to low 40s which could be secondary to sinus node dysfunction given baseline Down syndrome. Also discussed that in his case it will be difficult to determine if it is symptomatic or asymptomatic given baseline poor mentation. Treatment options for this would be a possible pacemaker implantation. Family given all the options. They will think about it further and get back to us. Discharge plan: Plan to discharge back to retirement within next 24 to 48 hours if patient remains hemodynamically stable. Case management working to see if patient can be transferred to retirement over the weekend. This documentation was created by [employer] tube closing machine operator software. Every effort was made to ensure accuracy of tube closing machine operator. Any obvious errors or omissions should be clarified with the author of the document. Attestations Medical Necessity Statement*: Requires further hospitalization for management of altered mental status in setting of severe sepsis from UTI/cystitis, hypernatremia from dehydration and poor oral intake in a patient with baseline Down syndrome Coding Level of Care Code 05489 High MDM includes number and complexity of problems actively addressed during encounter, amount and/or complexity of data reviewed/ordered (Goals of care discussion as above.) [ previous or external records, resulted lab(s)/test(s), ordered lab(s)/test(s), independent historian, independent test interpretation and other healthcare professional discussion] and described risk of complication, morbidity or mortality of management as documented Diagnoses Septic shock A41.9; R65.21 Hypernatremia E87.0 JACEK (acute kidney injury) N17.9 Cystitis N30.90 DVT (deep venous thrombosis) I82.409 Lactic acidosis E87.20 Seizure disorder G40.909 Parkinsons G20 Hypothyroidism E03.9 Down syndrome Q90.9 Hyperchloremia E87.8 Nonsustained ventricular tachycardia I47.29 Bradycardia R00.1 Goals of care, counseling/discussion Z71.89
[2022-12-15] MEDS: polyethylene glycol 3350 Pkt 17 gm PO (17:04)
[2022-12-15] MEDS: lanolin oint 7 gm 1 APPLIC TOPICAL (17:04)
[2022-12-15 17:06] LABS: Glucose Point of Care 129 mg/dL (70-110)
[2022-12-15 23:59] LABS: Glucose Point of Care 101 mg/dL (70-110)
[2022-12-16] VITALS (10 sets, daily range): BP systolic 120–155; BP diastolic 67–79; PULSE 54–90; RESP 16–20; TEMP 36.1–37.5; O2SAT 92–96
--- NOTE | 2022-12-16 00:15 | PC.PHAR ---
Vancomycin Trough scheduled for 12/16 1900, please hold 12/16 2000 dose until drawn. Will continue to monitor. Thank you, Margi Barriga h
[2022-12-16] MEDS: albumin 25 G/100 ML BAG 60 G IV ×2 (00:40→10:28)
[2022-12-16] MEDS: meropenem 1,000 MG in sodium chloride 0.9% (plus) 50 ML 100 MG IV ×2 (01:45→10:32)
[2022-12-16] MEDS: enoxaparin 80 mg/0.8 mL Syringe 70 MG SUBCUT (02:32)
[2022-12-16] MEDS: vancomycin 1,000 MG in sodium chloride 0.9% 250 ML 250 MG IV (03:29)
[2022-12-16] MEDS: famotidine 20 mg/2 mL INJ IVP (03:31)
[2022-12-16 04:56] LABS: Glucose Point of Care 78 mg/dL (70-110)
[2022-12-16] MEDS: valproic acid inj 500 MG in sodium chloride 0.9% 50 ML 55 MG IV (06:53)
[2022-12-16 09:41] LABS: Hematocrit 30.1 % (42.0-52.0); Hemoglobin 9.7 g/dL (11.7-16.6); Mean Corpuscular HGB Conc 32.2 g/dL (30.0-36.0); Mean Corpuscular Volume 105.6 fl (80-94); Mean Platelet Volume 12.7 fL (7.4-10.4); Platelet Count 123 10^3/cmm (130-400); Red Blood Count 2.85 10^6/uL (4.1-5.3); Red Cell Distribution Width 16.5 % (12.1-15.1); White Blood Count 4.7 10^3/uL (4.0-10.0)
[2022-12-16 10:35] LABS: Alanine Aminotransferase 12 U/L (0-41); Albumin Level 3.6 g/dL (3.5-5.2); Alkaline Phosphatase 43 U/L (40-130); Blood Urea Nitrogen 8 mg/dL (8-23); Calcium 7.7 mg/dL (8.5-10.5); Carbon Dioxide 24 mmol/L (22-29); Chloride 112 mmol/L (98-107); Globulin 2.6 g/dL (1.3-4.6); Glomerular Filtration Rate 114.6 mL/min (90-130); Glucose 77 mg/dL (65-115); Osmolality Calculated 295 mOsm/kg (285-295); Sodium 144 mmol/L (136-145); Total Bilirubin 0.5 mg/dL (0.15-1.2); Total Protein 6.2 g/dL (6.6-8.7)
[2022-12-16 10:37] LABS: Anion Gap 11.6 (5-19); Aspartate Amino Transferase 33 U/L (0-40); Potassium 3.6 mmol/L (3.5-5.1)
[2022-12-16] MEDS: carbidopa-levodopa 25-100mg Tablet 1 EACH PO ×2 (10:38→20:20)
[2022-12-16] MEDS: donepezil 5 MG Tablet PO (10:38)
[2022-12-16] MEDS: polyethylene glycol 3350 Pkt 17 gm PO (10:39)
[2022-12-16] MEDS: tamsulosin 0.4 mg Capsule PO (10:39)
[2022-12-16] MEDS: sennosides 8.6 mg Tablet PO (10:39)
[2022-12-16 10:59] LABS: Slide Review Slide Review Perform
[2022-12-16 11:06] LABS: Absolute Segmented Neutrophil 1.8 10/cmm (1.6-7.1); Band Neutrophils Absolute 0.2 10^3/cmm (0.0-1.2); Eosinophils 0 %; Lymphocytes 40 %; Lymphocytes Absolute 1.9 10^3/cmm (1.2-3.4); Monocytes Absolute 0.1 10^3/cmm (0.1-0.6); Segmented Neutrophils 39 %; Total Cells Counted 100 (0-100)
[2022-12-16 11:07] LABS: Platelet Estimate Decreased (Normal)
[2022-12-16] MEDS: levothyroxine 100 mcg SDV 75 MCG IVP (11:35)
[2022-12-16 12:45] LABS: Glucose Point of Care 90 mg/dL (70-110)
--- NOTE | 2022-12-16 12:49 | PM.DCS ---
Discharge Providers Date of Admission: 12/10/22 12:43 Date of Discharge: December 16, 2022 Attending Provider at Admission: Venancio Florez MD Attending Provider at Discharge: Brandyn Ross MD Primary Care Provider: Jessy Turcios Diagnoses at Discharge Discharge Diagnosis (1) Septic shock: Status: Acute (2) Hypernatremia: Status: Acute (3) JACEK (acute kidney injury): Status: Acute (4) Cystitis: Status: Acute (5) DVT (deep venous thrombosis): Status: Acute (6) Lactic acidosis: Status: Acute (7) Seizure disorder: Status: Acute (8) Parkinsons: Status: Acute (9) Hypothyroidism: Status: Acute (10) Down syndrome: Status: Acute (11) Hyperchloremia: Status: Acute (12) Nonsustained ventricular tachycardia: Status: Acute (13) Bradycardia: Status: Acute (14) Goals of care, counseling/discussion: Status: Acute Reason for Visit Reason for Visit: AMS Brief History: History as per HPI: Marco Bradley is a 62 year old male with a past medical history significant for Down syndrome, seizure disorder, Parkinson disease, and constipation who presents to the emergency department from nursing facility with altered mental status.? Mother, sister, and brother in law are bedside and supportive.? Patient is unable to provide any history due to clinical condition.? Mother reports patient has appeared sick for the past 2-3 weeks.? She states he has not been acting like himself, does not want to be touched, and has had very poor oral intake.? At baseline, patient has recently become non-verbal but usually interactive.? He entered the nursing facility about 6 months ago.? In the ED, patient was found to have severe hypernatremia and DVTs in bilateral lower extremities. A CT-PE is pending at time of evaluation. Hospital Course Hospital Course Patient was admitted to the ICU for further evaluation and management. On admission he was found to be in acute kidney injury with lactic acidosis and hypernatremia. There were concerns for severe sepsis. He was started on IV hydration, broad-spectrum antibiotics and blood cultures were taken. Patient developed septic shock. He required pressors with antibiotics and fluid in ICU. There was a concern for septic shock secondary to UTI/cystitis. His blood cultures remain negative but urine culture grew Aerococcus. Gradually patient improved and has been of pressors for last 72 hours. With IV hydration his hypernatremia also improved patient's mentation is gradually improving as well. Multiple goals of care discussions were done with patient's family member. Discussed in detail with the patient's family at bedside that given his baseline Down syndrome he would always be at higher risk of dehydration from poor oral intake more so now as currently he requires medical therapy 2 to 2-1/2 L of oral intake daily which is going to be difficult given his poor mentation which is almost back to his baseline as per his family. We discussed that biggest concern now is that even if he improves sodium level to normal prior to discharge that he will have recurrence of hypernatremia and altered mental status because of poor oral intake. We discussed going forward if that happens the only 2 options would be either to have PEG tube placed or go on hospice. We also discussed that patient has been having recurrent episodes of bradycardia with heart rate sometimes going down to low 40s which could be secondary to sinus node dysfunction given baseline Down syndrome.? Also discussed that in his case it will be difficult to determine if it is symptomatic or asymptomatic given baseline poor mentation.? Treatment options for this would be a possible pacemaker implantation. Family decided against PEG tube placement and pacemaker implantation. Further goals of care discussions were done. 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 Patient has been discharged in hemodynamically stable condition on oral Eliquis as per PE treatment and Augmentin for next 2 days. Going forward he is to have level 4 dysphagia diet with moderately thickened Physical Exam Narrative: General: No acute distress, chronically sick appearing, occasionally following simple commands, looks comfortable today HEENT: PERRLA, pupils bilaterally equal and reactive, bilateral radial pulses slightly febrile and fast Chest: Bilateral bronchial breath sounds all over lung barrera with occasional rhonchi, decreased air entry bilaterally in lower zone, conditional airway sound CVS: S1-S2 regular, no murmurs, tachycardia, no gallops, no rubs Abdomen: Soft, seems to be having tenderness in the right lower quadrant, no organomegaly, bowel sounds present Neuro: No focal deficits, no facial deformity, moving all limbs Urinary Catheter Management: Rich: Cath Placed During This Visit: yes Reason for Continuing Indwelling Catheter: Other Urinary Catheter Date of Insertion: 12/11/22 Urinary Catheter Time of Insertion: 12:41 Discharge Data Studies Completed and Pending Completed Studies During Hospitalization Category Date Time Status CT abdomen pelvis wo con [id number] Routine Cat Scan 12/11/22 10:[address] angio chest PE protcl [id number] Stat Cat Scan 12/10/22 12:[address] head wo con* [id number] Stat Cat Scan 12/10/22 11:23 Completed CXRP [XR chest 1V portable [id number]] Routine Exams 12/12/22 07:32 Completed XR chest 1V portable [id number] Stat Exams 12/10/22 11:23 Completed XR chest 1V portable [id number] Urgent Exams 12/13/22 13:12 Completed XR chest 1V portable [id number] Urgent Exams 12/13/22 16:43 Completed CV. echo complete* [id number] Routine Ultrasound 12/13/22 13:30 Completed US venous duplex lower extremity bilat [CV venous Ultrasound 12/10/22 12:10 [place] [id number]] Stat Pending at discharge Category Date Time Status Blood Culture AM LABS Lab 12/13/22 03:24 Results COVID [SARS Covid-2 Antigen] Routine Lab 12/16/22 11:51 Uncollected Vancomycin Trough Timed Lab 12/16/22 19:00 Ordered Radiology Impressions Head CT 12/10/22 11:23 IMPRESSION: 1. No acute intracranial abnormality. 2. Progressive severe diffuse cerebral atrophy since 10/27/2019. 3. Progressive severe diffuse ventricular dilation since 10/27/2019. Normal pressure hydrocephalus versus ventricular dilation related to atrophy. Venous Duplex 12/10/22 12:10 IMPRESSION: Bilateral deep venous thrombosis. ADDENDUM: 12/10/22 1427 THIS REPORT CONTAINS FINDINGS THAT MAY BE CRITICAL TO PATIENT CARE. The findings were verbally communicated via telephone conference with KANDICE FIELDS at 2:25 PM CDT on 12/10/2022. The findings were acknowledged and understood. Chest CTA 12/10/22 12:29 IMPRESSION: 1. No central pulmonary embolism. 2. Evaluation of the pulmonary arteries is limited by respiratory motion artifact. 3. T4 through T8 mild superior endplate compression fractures of indeterminate age. Abdomen/Pelvis CT 12/11/22 10:01 IMPRESSION: 1. Severe diffuse bladder wall thickening measuring up to 1.3 cm. 2. Additional bladder wall ulcerations containing contrast. The largest ulceration measures 2.2 cm in the posterior mid urinary bladder wall. Findings of significant acute cystitis. Bladder is overly distended. 3. No free fluid. 4. No renal obstruction. 5. Breathing motion artifact. 6. There is a small amount of retroperitoneal inflammation surrounding the distal aorta and urinary bladder. Inflammatory changes are likely related to the cystitis. Chest X-Ray 12/13/22 16:43 IMPRESSION: 1. Repositioning of the PICC line with tip over the distal SVC. 2. Stable atelectasis or pneumonia in the left base. Echocardiogram: CONCLUSIONS ?Normal left ventricular size and systolic function, EF 68 %. ?Trace to mild aortic valve regurgitation. ?Trace mitral valve regurgitation. ?Trace tricuspid and pulmonic valve regurgitation. ?There is no pericardial effusion. ?Technically difficult study because of the poor ultrasonic ?window. ?Dr Jose Restrepo MD [facility] ?(Electronically Signed) ?Final Date:? ? ? 13 Dec 2022 23:57 S Microbiology 12/10/22 21:20 Urine,Clean Catch Urine Culture - Final Aerococcus urinae 12/10/22 23:14 Blood Blood Culture - Final NO GROWTH AFTER 5 DAYS 12/10/22 23:10 Blood Blood Culture - Final NO GROWTH AFTER 5 DAYS 12/13/22 03:24 Blood Blood Culture - Preliminary NEGATIVE TO DATE 12/13/22 03:40 Blood Blood Culture - Preliminary NEGATIVE TO DATE 12/10/22 00:05 Nose MRSA Culture - Final Laboratory Results WBC 4.7 10^3/uL (4.0-10.0) 12/16/22 09:20 RBC 2.85 10^6/uL (4.1-5.3) L 12/16/22 09:20 Hgb 9.7 g/dL (11.7-16.6) L 12/16/22 09:20 Hct 30.1 % (42.0-52.0) L 12/16/22 09:20 MCV 105.6 fl (80-94) H 12/16/22 09:20 MCH 34.0 pg (28.0-34.0) 12/16/22 09:20 MCHC 32.2 g/dL (30.0-36.0) 12/16/22 09:20 RDW 16.5 % (12.1-15.1) H 12/16/22 09:20 Plt Count 123 10^3/cmm (130-400) L D 12/16/22 09:20 MPV 12.7 fL (7.4-10.4) H 12/16/22 09:20 Neut % (Auto) 52.5 % 12/15/22 03:49 Lymph % (Auto) Not Reportable 12/16/22 09:20 [place] % (Auto) Not Reportable 12/16/22 09:20 Eos % (Auto) 0.2 % 12/15/22 03:49 Baso % (Auto) 0.8 % 12/15/22 03:49 Neut # (Auto) 2.50 10^3/uL (1.8-7.7) 12/15/22 03:49 Lymph # (Auto) Not Reportable 12/16/22 09:20 [place] # (Auto) Not Reportable 12/16/22 09:20 Eos # (Auto) 0.0 10^3/uL (0.0-0.8) 12/15/22 03:49 Baso # (Auto) 0.0 10^3/uL (0.0-0.1) 12/15/22 03:49 Nucleated RBC % (auto) 1.5 % 12/15/22 03:49 Total Counted 100 (0-100) 12/16/22 09:20 Atypical Lymphs % 0.0 % (0-5) 12/16/22 09:20 Absolute Neutrophils 2.0 10^3/cmm (1.4-6.5) 12/16/22 09:20 Segmented Neutrophils 39 % 12/16/22 09:20 Abs Segm Neuts (Man) 1.8 10/cmm (1.6-7.1) 12/16/22 09:20 Band Neutrophils 4.0 % 12/16/22 09:20 Abs Band Neuts (Man) 0.2 10^3/cmm (0.0-1.2) 12/16/22 09:20 Absolute Lymphocytes 1.9 10^3/cmm (1.2-3.4) 12/16/22 09:20 Lymphocytes (Manual) 40 % 12/16/22 09:20 Monocytes (Manual) 3.0 % 12/16/22 09:20 Absolute Monocytes 0.1 10^3/cmm (0.1-0.6) 12/16/22 09:20 Eosinophils (Manual) 0 % 12/16/22 09:20 Absolute Eosinophils 0.0 10^3/cmm (0.0-0.7) 12/16/22 09:20 Basophils (Manual) 0.0 % 12/16/22 09:20 Absolute Basophils 0.0 10^3/cmm (0.0-0.2) 12/16/22 09:20 Metamyelocytes 10.0 % 12/16/22 09:20 Myelocytes 4.0 % 12/16/22 09:20 Nucleated RBCs 2.0 /100WBC (0-1) H 12/16/22 09:20 Nucleated RBCs # 0.1 /100WBC 12/15/22 03:49 Platelet Estimate Decreased (Normal) 12/16/22 09:20 Specimen Type Arterial 12/10/22 11:56 Sample Site Radial, left 12/10/22 11:56 ABG pH 7.49 (7.35-7.45) H 12/10/22 11:56 ABG pCO2 40.5 mmHg (35-45) 12/10/22 11:56 ABG pO2 67.9 mmHg (80.0-100.0) L 12/10/22 11:56 ABG HCO3 31.0 mmol/L (22-26) H 12/10/22 11:56 ABG O2 Saturation 95.2 12/10/22 11:56 ABG Base Excess 7.1 mmol/L (-2.0-2.0) H 12/10/22 11:56 Riki Test Pos 12/10/22 11:56 A-a O2 Gradient 3.9 mmHg (5-10) L 12/10/22 11:56 Hematocrit 40.1 % (42-52) L 12/10/22 11:56 Hgb O2 Saturation 93.2 % (95-100) L 12/10/22 11:56 Carboxyhemoglobin 1.6 %THgb (0.4-20.1) 12/10/22 11:56 Methemoglobin 0.5 % (0.4-1.5) 12/10/22 11:56 Total Hemoglobin 13.1 g/dL (14-18) L 12/10/22 11:56 Sodium 169.0 mmol/L (131-143) H 12/10/22 11:56 Potassium 3.7 mmol/L (3.5-5.0) 12/10/22 11:56 Glucose 92.0 mg/dL (70-115) 12/10/22 11:56 Ionized Calcium 1.1 mmol/L (1.1-1.4) 12/10/22 11:56 O2 Delivery Device None 12/10/22 11:56 FiO2 21.0 % 12/10/22 11:56 Translator And Interpreter ID [place] 12/10/22 11:56 Sodium 144 mmol/L (136-145) 12/16/22 09:20 Potassium 3.6 mmol/L (3.5-5.1) 12/16/22 09:20 Chloride 112 mmol/L (98-107) H 12/16/22 09:20 Carbon Dioxide 24 mmol/L (22-29) 12/16/22 09:20 Anion Gap 11.6 (5-19) 12/16/22 09:20 BUN 8 mg/dL (8-23) 12/16/22 09:20 Creatinine 0.7 mg/dL (0.7-1.2) 12/16/22 09:20 GFR Calculation 114.6 mL/min (90-130) 12/16/22 09:20 Glucose 77 mg/dL (65-115) 12/16/22 09:20 POC Glucose 90 mg/dL (70-110) 12/16/22 12:36 Estimat Average Glucose 108 12/12/22 02:44 Hemoglobin A1c 5.4 % (4.0-6.0) 12/12/22 02:44 Calculated Osmolality 295 mOsm/kg (285-295) 12/16/22 09:20 Lactic Acid 2.1 mmol/L (0.5-2.2) 12/11/22 12:15 Lactic Acid (Sepsis) 2.7 mmol/L (0.5-2.2) H 12/11/22 15:20 Calcium 7.7 mg/dL (8.5-10.5) L 12/16/22 09:20 Phosphorus 2.7 mg/dL (2.5-4.5) 12/11/22 07:55 Magnesium 1.7 mg/dL (1.7-2.3) 12/12/22 18:18 Iron 95 ug/dL (59-158) 12/11/22 03:49 TIBC 150 mcg/dl 12/11/22 03:49 % Saturation 63.3 % (20-50) H 12/11/22 03:49 Unsat Iron Binding 55 ug/dL (112-347) L 12/11/22 03:49 Total Bilirubin 0.5 mg/dL (0.15-1.2) 12/16/22 09:20 AST 33 U/L (0-40) 12/16/22 09:20 ALT 12 U/L (0-41) 12/16/22 09:20 Alkaline Phosphatase 43 U/L (40-130) 12/16/22 09:20 Creatine Kinase 130 U/L (39-308) 12/10/22 11:50 Troponin T Baseline 31 ng/L (0-15) H 12/12/22 15:33 Troponin T 120 Minute 49.24 ng/L (0-15) H 12/12/22 18:18 Delta Troponin T 18.24 ABS# (0-10) H* 12/12/22 18:18 Troponin T Hi Sens 6Hr 27.88 ng/L (0-15) H 12/12/22 21:34 Troponin T Hi Sens 6Hr Delta -3.12 ng/L (0-12) L 12/12/22 21:34 Total Protein 6.2 g/dL (6.6-8.7) L 12/16/22 09:20 Albumin 3.6 g/dL (3.5-5.2) 12/16/22 09:20 Globulin 2.6 g/dL (1.3-4.6) 12/16/22 09:20 Lipase 26 U/L (13-60) 12/10/22 11:50 Vitamin B12 580 pg/mL (232-1245) 12/11/22 03:49 Folate 5.7 ng/mL (4.5-32.2) 12/11/22 03:49 Procalcitonin 0.24 ng/mL (0-0.5) 12/10/22 11:50 TSH 0.62 uIU/mL (0.27-4.20) 12/11/22 03:49 Random Cortisol 11.85 ug/dL (2.47-19.5) 12/11/22 03:49 Urine Color Dark yellow (Yellow) 12/10/22 21:20 Urine Appearance Cloudy (CLEAR) A 12/10/22 21:20 Urine pH 6 (5-7) 12/10/22 21:20 Ur Specific [place] 1.010 (1.005-1.030) 12/10/22 21:20 Urine Protein 3+ (Negative) H 12/10/22 21:20 Urine Glucose (UA) Norm (Normal) 12/10/22 21:20 Urine Ketones Negative (Negative) 12/10/22 21:20 Urine Blood 2+ (Negative) H 12/10/22 21:20 Urine Nitrate Negative (Negative) 12/10/22 21:20 Urine Bilirubin Neg (Negative) 12/10/22 21:20 Urine Urobilinogen Norm mg/dL (Negative) 12/10/22 21:20 Ur Leukocyte Esterase 2+ (Negative) H 12/10/22 21:20 Urine RBC 0-4 /hpf (0-2) H 12/10/22 21:20 Urine WBC Too numerous to cnt /hpf (0-5) H 12/10/22 21:20 Ur Squamous Epith Cells 0-4 /hpf (0-5) H 12/10/22 21:20 Amorphous Sediment Not Reportable 12/10/22 21:20 Urine Bacteria Trace /hpf (NONE) 12/10/22 21:20 Nasal Influ A H1 2009 PCR Not detected (NOT DETECT) 12/13/22 00:45 Vancomycin Trough 8.3 ug/mL (10-15) L 12/13/22 21:48 Valproic Acid 45.8 ug/mL (50-100) L 12/10/22 11:50 Serum Ketones Negative (Negative) 12/10/22 11:50 Adenovirus (PCR) Not detected (NOT DETECT) 12/13/22 00:45 C. pneumoniae DNA (PCR) Not detected (NOT DETECT) 12/13/22 00:45 Coronavirus 229E (PCR) Not detected (NOT DETECT) 12/13/22 00:45 Human Metapneumovir PCR Not detected (NOT DETECT) 12/13/22 00:45 Influenza A (H1) PCR Not detected (NOT DETECT) 12/13/22 00:45 Influenza A (H3) PCR Not detected (NOT DETECT) 12/13/22 00:45 Influenza Type A (PCR) Not detected (NOT DETECT) 12/13/22 00:45 Influenza Type B (PCR) Not detected (NOT DETECT) 12/13/22 00:45 M. pneumoniae (PCR) Not detected (NOT DETECT) 12/13/22 00:45 Parainfluenza 1 (PCR) Not detected (NOT DETECT) 12/13/22 00:45 Parainfluenza 2 (PCR) Not detected (NOT DETECT) 12/13/22 00:45 Parainfluenza 3 (PCR) Not detected (NOT DETECT) 12/13/22 00:45 Parainfluenza 4 (PCR) Not detected (NOT DETECT) 12/13/22 00:45 RSV Type A (PCR) Not detected (NOT DETECT) 12/13/22 00:45 RSV Type B (PCR) Not detected (NOT DETECT) 12/13/22 00:45 Entero/Rhino (PCR) Not detected (NOT DETECT) 12/13/22 00:45 SARS-CoV-2 (PCR) Not detected (NOT DETECT) 12/13/22 00:45 Vitals Last Vital Signs Temp 97.7 F 12/16/22 07:57 Pulse 66 12/16/22 09:25 Resp 18 12/16/22 09:25 BP 120/67 12/16/22 07:57 Pulse Ox 96 12/16/22 09:25 O2 Del Method Room Air 12/16/22 09:25 O2 Flow Rate 2 12/12/22 20:28 Discharge Plan Discharge Patient Disposition: Xfer SNF Condition: Stable Prescriptions: New Madisynis DVT-PE Treat 30D Start 5 mg (74 tabs) tablets,dose pack See Rx Instructions .ROUTE .COMPLEX Qty: 74 0RF Rx Instructions: orally per package directions Augmentin 500-125 mg tablet 1 tab PO BID Qty: 4 0RF Continued donepezil 5 mg Tablet 5 mg PO DAILY tamsulosin 0.4 mg Capsule 0.4 mg PO DAILY levothyroxine 125 mcg Tablet 125 mcg PO DAILY sennosides [senna] 8.6 mg Tablet 8.6 mg PO BID acetaminophen 325 mg Tablet 650 mg PO QID PRN (Reason: Pain) divalproex 250 mg tablet,delayed release (DR/EC) 500 mg PO TID polyethylene glycol 3350 [Miralax] 17 gram Powder In Packet 17 g PO BID hydrocodone-acetaminophen 5-325 mg tablet 1 tab PO Q6H PRN (Reason: Pain) tetrahydrozoline [Visine] 0.05 % Drops 2 drp OPHTHALMIC (EYE) Q8H PRN (Reason: Dry Eye(S)) magnesium hydroxide [Milk of Magnesia] 400 mg/5 mL Suspension 30 ml PO DAILY PRN (Reason: Constipation) bisacodyl 10 mg Suppository 10 mg DE DAILY PRN (Reason: Constipation) Fleet Enema 19-7 gram/118 mL Enema 118 ml [place] DAILY PRN (Reason: Constipation) carbidopa-levodopa 25-100 mg tablet 1 tab PO TID Discharge Orders: Discharge Order (Routine); Ordered 12/16/22 Ordered By: Brandyn Ross Referrals: [facility] [Outside] Jessy Turcios [Primary Care Provider] - Discharge Diet: As Directed Discharge Activity: Resume usual activity and Increase activity as tolerated Patient Instructions: Hyponatremia (ED), Benzodiazepine Use Disorder (ED), Dementia (ED), Non-diabetic Hypoglycemia (ED), Hypoglycemia in a Person with Diabetes (ED), Concussion (ED), Alcohol Intoxication (ED), Subarachnoid Hemorrhage (GEN), Altered Mental Status (ED), Opioid Safety Activity Restrictions/Additional Instructions: Dysphagia 4 diet moderately thickened Take Eliquis as per direction. Take Augmentin for next 2 days. Discharge Attestations Time Spent in Discharge Care*: greater than 30 min Specific Discharge Activities: educating and/or supporting family/caregiver, discussing with pcp/other providers, discussing with ed case manager/social workers/dc planners, documenting/other paperwork and evaluating patient/reviewing data Status at Discharge: Cognitive status at discharge: severely impaired cognition, Behavioral status at discharge: cooperative, Functional status at discharge: wheelchair bound, Overall status at discharge: patient is back to baseline Quality Metrics Clinical Quality Measures [ No reported AMI, CVA or VTE this stay] Coding Level of Care Code 73262 Total time (in minutes) for Discharge: 60 Diagnoses Septic shock A41.9; R65.21 Hypernatremia E87.0 JACEK (acute kidney injury) N17.9 Cystitis N30.90 DVT (deep venous thrombosis) I82.409 Lactic acidosis E87.20 Seizure disorder G40.909 Parkinsons G20 Hypothyroidism E03.9 Down syndrome Q90.9 Hyperchloremia E87.8 Nonsustained ventricular tachycardia I47.29 Bradycardia R00.1 Goals of care, counseling/discussion Z71.89
--- NOTE | 2022-12-16 14:38 | PC.NURSE ---
Called report to Anastasiia Myers RN Vehicle Safety Inspector at [facility]
[2022-12-16 15:01] LABS: SARS Covid-2 Antigen negative (Negative)
[2022-12-16 17:10] LABS: Glucose Point of Care 84 mg/dL (70-110)
--- NOTE | 2022-12-16 20:53 | PC.NURSE ---
Ambulance service here, transporting patient back to senior living.
== END 2022-12-17 | disposition skilled nursing facility (03) | DRG 871 ==
LOC: ER 12:19 → ICU 13:03 → MEDSURG 12-15 12:37
PROVIDERS: Admitting Provider Internal Medicine; Emergency Provider Family Medicine; PCP Registered Nurse; Visit Provider Student in an Organized Health Care Education/Training Program
DX: A41.9 Sepsis, unspecified organism (principal); R65.21 Severe sepsis with septic shock; E87.0 Hyperosmolality and hypernatremia; N17.9 Acute kidney failure, unspecified; I82.413 Acute embolism and thrombosis of femoral vein, bilateral; I82.4Z3 Acute embolism and thrombosis of unspecified deep veins of distal lower extremity, bilateral; E87.20 Acidosis, unspecified; I47.20 Ventricular tachycardia, unspecified; N30.90 Cystitis, unspecified without hematuria; G40.909 Epilepsy, unspecified, not intractable, without status epilepticus; G20 Parkinson's disease; E03.9 Hypothyroidism, unspecified; Q90.9 Down syndrome, unspecified; K59.00 Constipation, unspecified; B96.89 Other specified bacterial agents as the cause of diseases classified elsewhere; R13.10 Dysphagia, unspecified; Z79.891 Long term (current) use of opiate analgesic; E86.0 Dehydration
CPT/HCPCS: 36415; 36416; 36569; 36592; 36600; 51702; 70450; 71045; 71275; 74176; 80048; 80051; 80053; 80069; 80164; 80202; 81001; 82009; 82330; 82533; 82550; 82607; 82746; 82805; 82962; 83036; 83540; 83550; 83605; 83690; 83735; 84145; 84443; 84484; 85007; 85025; 87040; 87077; 87086; 87426; 87486; 87581; 87633; 87641; 92526; 92610; 93005; 93306; 93970; 94660; 94669; 94799; 96360; 96372; 96376; 99285; C1751; J0131; J1650; J1720; J2185; J2543; J3370; J3475; J3480; J3490; J7030; J7042; J7050; J7060; J7070; J7120; J7799; P9046; Q9967

== ENCOUNTER 2023-06-15 13:12 | Inpatient (IN) | payer MEDICARE, MEDICAID, SELFPAY ==
[2023-06-15 13:13] VITALS: BP 124/86; PULSE 78; RESP 18; TEMP 37.2; O2SAT 95
--- NOTE | 2023-06-15 13:23 | W.ED.HEATRA ---
HPI - Head Injury General: Chief complaint: Altered Mental Status Stated complaint: ams, non verbal Time Seen by Provider: 06/15/23 13:17 Source: patient Mode of arrival: ambulatory History of Present Illness: MD Complaint: head injury Associated symptoms: Deny neck pain Review of Systems Const: Denies: fever(s) or chills Card: Denies: chest pain Resp: Denies: dyspnea GI: Denies: abdominal pain : Denies: dysuria, urinary frequency or urinary urgency Musc: Denies: neck pain or back pain Skin/Breast: Denies: rash PFSH ED PFSH: Medical History Down syndrome Hypothyroidism Parkinsons Seizure disorder Surgical History No history of previous surgery Family History Mother Breast cancer Social History Smoking and tobacco/nicotine status: never used tobacco/nicotine Alcohol intake: never Substance/Drug Use: never Housing: Custodial Physical Exam Const: COMMON NORMALS: no acute distress GENERAL APPEARANCE: cooperative and comfortable ORIENTATION/CONSCIOUSNESS: Yes awake, Yes oriented to person, Yes oriented to place and Yes oriented to time HENMT: COMMON NORMALS: normocephalic, atraumatic and hearing grossly normal bilaterally HEAD & SCALP: normocephalic and atraumatic Resp: COMMON NORMALS: normal respiratory effort, No retractions, No use of accessory muscles and clear to auscultation bilaterally AUSCULTATION: clear to auscultation bilaterally Cardio: COMMON NORMALS: regular rate, regular rhythm and No murmurs present (Cardio) RATE: regular rate RHYTHM: regular rhythm GI: COMMON NORMALS: Soft to palpation and No hepatosplenomegaly present AUSCULTATION: Yes normoactive bowel sounds PALPATION: Yes Soft to palpation, No Tenderness to palpation present (GI), No Guarding due to palpation present (GI) and Yes No hepatosplenomegaly present Extremity: COMMON NORMALS: normal to inspection, capillary refill normal, no clubbing, cyanosis or edema, no calf tenderness and no pedal edema Neuro: SENSORIUM/ORIENTATION: Yes oriented to person, Yes oriented to place and Yes oriented to time Skin: COMMON NORMALS: no rashes or lesions noted GENERAL SKIN EXAM: no rashes or lesions noted Course Vital Signs: Vital signs: Vital Signs Temperature 99.0 F 06/15/23 13:13 Pulse Rate 78 06/15/23 13:13 Respiratory Rate 18 06/15/23 13:13 Blood Pressure 124/86 06/15/23 13:13 Pulse Oximetry 95 06/15/23 13:13 Oxygen Delivery Me thod Room Air 06/15/23 13:13 Discharge Plan Discharge Condition: Stable Prescriptions: No Action donepezil 5 mg Tablet 5 mg PO DAILY tamsulosin 0.4 mg Capsule 0.4 mg PO DAILY levothyroxine 125 mcg Tablet 125 mcg PO DAILY Eliquis DVT-PE Treat 30D Start 5 mg (74 tabs) tablets,dose pack See Rx Instructions .ROUTE .COMPLEX Qty: 74 0RF Rx Instructions: orally per package directions Augmentin 500-125 mg tablet 1 tab PO BID Qty: 4 0RF sennosides [senna] 8.6 mg Tablet 8.6 mg PO BID acetaminophen 325 mg Tablet 650 mg PO QID PRN (Reason: Pain) divalproex 250 mg tablet,delayed release (DR/EC) 500 mg PO TID polyethylene glycol 3350 [Miralax] 17 gram Powder In Packet 17 g PO BID hydrocodone-acetaminophen 5-325 mg tablet 1 tab PO Q6H PRN (Reason: Pain) tetrahydrozoline [Visine] 0.05 % Drops 2 drp OPHTHALMIC (EYE) Q8H PRN (Reason: Dry Eye(S)) magnesium hydroxide [Milk of Magnesia] 400 mg/5 mL Suspension 30 ml PO DAILY PRN (Reason: Constipation) bisacodyl 10 mg Suppository 10 mg [place] DAILY PRN (Reason: Constipation) Fleet Enema 19-7 gram/118 mL Enema 118 ml [place] DAILY PRN (Reason: Constipation) carbidopa-levodopa 25-100 mg tablet 1 tab PO TID Referrals: Jessy Turcios [Primary Care Provider] - Patient Instructions: Altered Mental Status (ED), Alcohol Intoxication (ED), Benzodiazepine Use Disorder (ED), Concussion (ED), Dementia (ED), Subarachnoid Hemorrhage (GEN), Hyponatremia (ED), Non-diabetic Hypoglycemia (ED), Hypoglycemia in a Person with Diabetes (ED) Coding Level of Care Code 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
--- NOTE | 2023-06-15 13:24 | ECG_ITS ---
[facility] Test Date: 2023-06-15 Pat Name: Marco Bradley Department: Room: Gender: Male Social Worker Delinquency Prevention: : 1960 Requested By: Kt Cerda Order Number: [id number] Dasia MD: Jay Maldonado M.D. Measurements Intervals [place] Rate: 75 P: 19 ND: 153 QRS: 37 QRSD: 84 T: -1 QT: 383 QTc: 428 Interpretive Statements SINUS RHYTHM NONSPECIFIC T-WAVE ABNORMALITY Compared to ECG 12/13/2022 13:21:29 Ventricular premature complex(es) no longer present T-wave abnormality still present Electronically Signed On 06-15-2023 19:36:58 CDT by Jay Maldonado M.D. [email or web address]
--- NOTE | 2023-06-15 13:25 | XRR_ITS ---
PROCEDURE INFORMATION: Exam: XR Chest Exam date and time: 06/15/2023 1:54 PM Age: 63 years old Clinical indication: Cough and dyspnea; Patient HX: Not eating, not moving, ; additional info: Dyspnea/cough TECHNIQUE: Imaging protocol: Radiologic exam of the chest. Views: 1 view. COMPARISON: CR XR chest 1V portable [id number] 12/13/2022 3:56 PM FINDINGS: Lungs: Hazy bilateral perihilar infiltrates, left side greater than right. Pleural spaces: Unremarkable. No pleural effusion. No pneumothorax. Heart/Mediastinum: Unremarkable. No cardiomegaly. Bones/joints: Unremarkable. XR/XR chest 1V portable [id number] IMPRESSION: Hazy bilateral perihilar infiltrates, left side greater than right.
--- NOTE | 2023-06-15 13:25 | CT_ITS ---
WS: [id number] CT HEAD TECHNIQUE: Noncontrast CT of the head obtained from the skullbase to the vertex. CLINICAL INFORMATION: Altered mental status COMPARISON: 12/10/2022 DLP: 802.[address] scans at [facility] use at least one of these dose optimization techniques: automated e xposure control; mA and/or kV adjustment per patient size (includes targeted exams where dose is matc hed to clinical indication); or iterative reconstruction. FINDINGS: No evidence of intracranial hemorrhage or mass effect. Ventricular system and basal cisterns are rubio nt. Moderate small vessel changes with advanced parenchymal volume loss. No extra-axial fluid collect ions. No evidence of mass or mass effect. Stable ventricular dilatation. No transependymal edema. Paranasal sinuses and mastoid air cells are well aerated. .Normal visualized soft tissues. IMPRESSION: 1. No evidence of intracranial hemorrhage or mass effect. 2. Moderate small vessel changes with advanced parenchymal volume loss 3. Stable ventriculomegaly. No transependymal edema. 4. No significant changes since 12/10/2022
--- NOTE | 2023-06-15 13:38 | W.ED.GENADLT ---
HPI - General Adult General: Chief complaint: Altered Mental Status Stated complaint: ams, non verbal Time Seen by Provider: 06/15/23 13:17 Source: patient Mode of arrival: ambulatory History of Present Illness: 63-year-old male who presents to the emergency room in the accompaniment of his mother via ambulance. Patient lives at a long term he has a history of Down syndrome and Parkinson's with progressively worsening dementia. Last few days he has been poorly responsive not eating or drinking well. No precipitating events. Patient is unable to give any verbal responses. Onset (ago): minute(s) Severity: mild Pain Consistency: constant Relieving factors: none Exacerbating factors: none Associated symptoms: Deny cough, decreased appetite, fevers/chills, seizures, short of breath or weakness Review of Systems General: Reports: ROS unobtainable due to medical condition and ROS unobtainable due to mental status [facility] ED PFSH: Medical History Down syndrome Hypothyroidism Parkinsons Seizure disorder Surgical History No history of previous surgery Family History Mother Breast cancer Social History Smoking and tobacco/nicotine status: never used tobacco/nicotine Alcohol intake: never Substance/Drug Use: never Housing: Detention Physical Exam Const: GENERAL APPEARANCE: lethargic ORIENTATION/CONSCIOUSNESS: Yes lethargic HENMT: COMMON NORMALS: normocephalic, atraumatic and hearing grossly normal bilaterally HEAD & SCALP: normocephalic and atraumatic Resp: COMMON NORMALS: normal respiratory effort, No retractions and No use of accessory muscles AUSCULTATION: rhonchi and wheezes Cardio: COMMON NORMALS: regular rate, regular rhythm and No murmurs present (Cardio) RATE: regular rate RHYTHM: regular rhythm GI: COMMON NORMALS: No hepatosplenomegaly present AUSCULTATION: Yes normoactive bowel sounds PALPATION: Yes Tenderness to palpation present (GI) (Mild suprapubic tenderness), No Guarding due to palpation present (GI) and Yes No hepatosplenomegaly present Extremity: COMMON NORMALS: normal to inspection, capillary refill normal, no clubbing, cyanosis or edema, no calf tenderness and no pedal edema Neuro: SENSORIUM/ORIENTATION: Yes lethargic Skin: COMMON NORMALS: no rashes or lesions noted GENERAL SKIN EXAM: no rashes or lesions noted Course Vital Signs: Vital signs: Vital Signs Temperature 99.0 F 06/15/23 13:13 Pulse Rate 78 06/15/23 13:13 Respiratory Rate 18 06/15/23 13:13 Blood Pressure 124/86 06/15/23 13:13 Pulse Oximetry 95 06/15/23 13:13 Oxygen Delivery Me thod Room Air 06/15/23 13:13 MDM - General Adult Medical Decision Making Chest x-ray shows pneumonia. Talking to the mother the patient does aspirate from time to time while eating will cough and visual display associate. Also shows cystitis. No significant leukocytosis but he is mildly tachycardic and his oxygen sat is borderline. I do think he requires hospitalization discussed with hospitalist. Will admit started meropenem to cover both pneumonia and cystitis. CT of the abdomen did not show any other acute pathology is some mild retention of urine at the time of the CT but on the catheter earlier patient only had around 100 mL drained. Medical Records I reviewed the patient's medical records. Lab Data I reviewed the patient's lab results. 06/15/23 14:38 06/15/23 14:38 Radiology Impressions Chest X-Ray 06/15/23 13:25 IMPRESSION: Hazy bilateral perihilar infiltrates, left side greater than right. Abdomen/Pelvis CT 06/15/23 13:41 IMPRESSION: 1. Mildly distended urinary bladder with diffuse bladder wall thickening and small bladder diverticulum stable from previous exam as discussed above. 2. Cholelithiasis without evidence of acute cholecystitis. 3. Chronic grade 1 isthmic spondylolisthesis L5-S1. Laboratory Results WBC 8.15 10^3/uL (3.29-11.43) 06/15/23 14:38 RBC 4.02 10^6/uL (3.85-5.65) 06/15/23 14:38 Hgb 14.60 g/dL (11.27-16.99) 06/15/23 14:38 Hct 45.0 % (37-53) 06/15/23 14:38 MCV 111.9 fl (82-101) H 06/15/23 14:38 MCH 36.3 pg (27-33) H 06/15/23 14:38 MCHC 32.4 g/dL (30-55) 06/15/23 14:38 RDW 13.8 % (12.1-15.1) 06/15/23 14:38 Plt Count 320 10^3/cmm (157-399) 06/15/23 14:38 MPV 10.2 fL (7.4-10.4) 06/15/23 14:38 Neut % (Auto) 56.3 % 06/15/23 14:38 Lymph % (Auto) 27.2 % 06/15/23 14:38 [place] % (Auto) 10.4 % 06/15/23 14:38 Eos % (Auto) 0.1 % 06/15/23 14:38 Baso % (Auto) 1.2 % 06/15/23 14:38 Neut # (Auto) 4.58 10^3/uL (1.8-7.7) 06/15/23 14:38 Lymph # (Auto) 2.2 10^3/uL (0.8-4.8) 06/15/23 14:38 [place] # (Auto) 0.9 10^3/uL (0.2-0.9) 06/15/23 14:38 Eos # (Auto) 0.0 10^3/uL (0.0-0.8) 06/15/23 14:38 Baso # (Auto) 0.1 10^3/uL (0.0-0.1) 06/15/23 14:38 Nucleated RBC % (auto) 0 % 06/15/23 14:38 Nucleated RBCs # 0.0 /100WBC 06/15/23 14:38 PT 17.40 SECONDS (12.1-14.9) H 06/15/23 14:38 INR 1.38 (0.8-1.2) H 06/15/23 14:38 Sodium 144 mmol/L (136-145) 06/15/23 14:38 Potassium 4.2 mmol/L (3.5-5.1) 06/15/23 14:38 Chloride 106 mmol/L (98-107) 06/15/23 14:38 Carbon Dioxide 28 mmol/L (22-29) 06/15/23 14:38 Anion Gap 14.2 (5-19) 06/15/23 14:38 BUN 22 mg/dL (8-23) 06/15/23 14:38 Creatinine 1.1 mg/dL (0.7-1.2) 06/15/23 14:38 GFR Calculation 67.8 mL/min (90-130) L 06/15/23 14:38 Glucose 112 mg/dL (65-115) 06/15/23 14:38 Calculated Osmolality 302 mOsm/kg (285-295) H 06/15/23 14:38 Lactic Acid 2.2 mmol/L (0.5-2.2) 06/15/23 14:38 Calcium 8.7 mg/dL (8.5-10.5) 06/15/23 14:38 Total Bilirubin 0.3 mg/dL (0.15-1.2) 06/15/23 14:38 AST 21 U/L (0-40) 06/15/23 14:38 ALT 10 U/L (0-41) 06/15/23 14:38 Alkaline Phosphatase 62 U/L (40-130) 06/15/23 14:38 NT-Pro-B Natriuret Pep 78 pg/mL (0-125) 06/15/23 14:38 Total Protein 8.2 g/dL (6.6-8.7) 06/15/23 14:38 Albumin 2.9 g/dL (3.5-5.2) L 06/15/23 14:38 Globulin 5.3 g/dL (1.3-4.6) H 06/15/23 14:38 Lipase 25 U/L (13-60) 06/15/23 14:38 Procalcitonin 0.14 ng/mL (0-0.5) 06/15/23 14:38 Random Cortisol 12.77 ug/dL (2.47-19.5) 06/15/23 14:38 Urine Color Yellow (Yellow) 06/15/23 14:16 Urine Appearance Cloudy (CLEAR) A 06/15/23 14:16 Urine pH 5 (5-7) 06/15/23 14:16 Ur Specific [place] 1.015 (1.005-1.030) 06/15/23 14:16 Urine Protein 1+ (Negative) H 06/15/23 14:16 Urine Glucose (UA) Norm (Normal) 06/15/23 14:16 Urine Ketones 1+ (Negative) H 06/15/23 14:16 Urine Blood 3+ (Negative) H 06/15/23 14:16 Urine Nitrate Negative (Negative) 06/15/23 14:16 Urine Bilirubin Neg (Negative) 06/15/23 14:16 Urine Urobilinogen Norm mg/dL (Negative) 06/15/23 14:16 Ur Leukocyte Esterase 2+ (Negative) H 06/15/23 14:16 Urine RBC 0-4 /hpf (0-2) H 06/15/23 14:16 Urine WBC Too numerous to cnt /hpf (0-5) H 06/15/23 14:16 Ur Squamous Epith Cells 0-4 /hpf (0-5) H 06/15/23 14:16 Amorphous Sediment Not Reportable 06/15/23 14:16 Urine Bacteria Trace /hpf (NONE) 06/15/23 14:16 All radiology interpretation(s) finalized by discharge Discharge Plan Discharge Patient Disposition: Admitted As Inpatient Clinical Impression: Aspiration pneumonia, Cystitis, Acute encephalopathy, Parkinsons, Down syndrome, Dementia Condition: Stable Prescriptions: No Action donepezil 5 mg Tablet 5 mg PO DAILY tamsulosin 0.4 mg Capsule 0.4 mg PO DAILY levothyroxine 125 mcg Tablet 125 mcg PO DAILY Eliquis DVT-PE Treat 30D Start 5 mg (74 tabs) tablets,dose pack See Rx Instructions .ROUTE .COMPLEX Qty: 74 0RF Rx Instructions: orally per package directions amoxicillin-pot clavulanate [Augmentin] 500-125 mg tablet 1 tab PO BID Qty: 4 0RF levetiracetam 500 mg tablet 500 mg PO BID guaifenesin 100 mg/5 mL Liquid 100 mg PO Q12H PRN (Reason: Cough) ketoconazole 2 % Cream 1 applic TOPICAL BID sennosides [senna] 8.6 mg Tablet 8.6 mg PO BID acetaminophen 325 mg Tablet 650 mg PO QID PRN (Reason: Pain) divalproex 250 mg tablet,delayed release (DR/EC) 500 mg PO TID polyethylene glycol 3350 [Miralax] 17 gram Powder In Packet 17 g PO BID tetrahydrozoline [Visine] 0.05 % Drops 2 drp OPHTHALMIC (EYE) Q8H PRN (Reason: Dry Eye(S)) magnesium hydroxide [Milk of Magnesia] 400 mg/5 mL Suspension 30 ml PO DAILY PRN (Reason: Constipation) bisacodyl 10 mg Suppository 10 mg SC DAILY PRN (Reason: Constipation) Fleet Enema 19-7 gram/118 mL Enema 118 ml SC DAILY PRN (Reason: Constipation) carbidopa-levodopa 25-100 mg tablet 1 tab PO TID Referrals: Jessy Turcios [Primary Care Provider] - Patient Instructions: Hyponatremia (ED), Benzodiazepine Use Disorder (ED), Dementia (ED), Non-diabetic Hypoglycemia (ED), Hypoglycemia in a Person with Diabetes (ED), Concussion (ED), Alcohol Intoxication (ED), Subarachnoid Hemorrhage (GEN), Altered Mental Status (ED), Opioid Safety, Pain Management Coding Level of Care Code ED [employer] for [employer]
--- NOTE | 2023-06-15 13:41 | CTR_ITS ---
PROCEDURE INFORMATION: Exam: CT Abdomen And Pelvis With Contrast Exam date and time: 06/15/2023 3:49 PM Age: 63 years old Clinical indication: Abdominal pain; Generalized; Patient HX: Abd pain; Limited HX due to PT condition; Per pts mother he is at a half-way in fln view, declining last several days, PT is non verbal in CT. PT has HX of down syndrome. TECHNIQUE: Imaging protocol: Computed tomography of the abdomen and pelvis with contrast. Radiation optimization: All CT scans at this facility use at least one of these dose optimization techniques: automated exposure control; mA and/or kV adjustment per patient size (includes targeted exams where dose is matched to clinical indication); or iterative reconstruction. Contrast material: OMNIPAQUE 350; Contrast volume: 100 ml; Contrast route: INTRAVENOUS (IV); REPORTING DATA: Count of CT and Cardiac NM exams in prior 12 months: This patient has received 3 known CTs and 0 known cardiac nuclear medicine studies in the 12 months prior to the current study. COMPARISON: CT abdomen pelvis wo con [id number] 12/11/2022 11:21 AM RADIATION DOSE METRICS: Total DLP (mGy-cm): 836.3 FINDINGS: Lungs: Chronic airway changes left lung base, stable. Liver: Normal. No mass. Gallbladder and bile ducts: There are few small noncalcified gallstones in the dependent portion the gallbladder otherwise gallbladder is unremarkable. Bile ducts are not dilated. Pancreas: Normal. No ductal dilation. Spleen: Normal. No splenomegaly. Adrenal glands: Normal. No mass. Kidneys and ureters: Normal. No hydronephrosis. Stomach and bowel: Unremarkable. No obstruction. No mucosal thickening. Appendix: No evidence of appendicitis. Intraperitoneal space: Unremarkable. No free air. No significant fluid collection. Vasculature: Unremarkable. No abdominal aortic aneurysm. Lymph nodes: Unremarkable. No enlarged lymph nodes. Urinary bladder: Bladder is mildly distended with pronounced diffuse bladder wall thickening and accompanying mucosal hyperenhancement relatively stable in likely differences in technique. There is a small bladder diverticulum arising from the right posterior bladder wall unchanged. Findings may represent combination of ongoing cystitis superimposed on neurogenic bladder or chronic bladder outlet obstruction syndrome. Reproductive: Prostate gland not significantly enlarged. Bones/joints: Chronic grade 1 isthmic spondylolisthesis L5-S1 with secondary degenerative changes, stable. No acute bony abnormalities. Soft tissues: Unremarkable. CT/CT abdomen pelvis w con* [id number] IMPRESSION: 1. Mildly distended urinary bladder with diffuse bladder wall thickening and small bladder diverticulum stable from previous exam as discussed above. 2. Cholelithiasis without evidence of acute cholecystitis. 3. Chronic grade 1 isthmic spondylolisthesis L5-S1.
[2023-06-15 14:46] LABS: Basophils # 0.1 10^3/uL (0.0-0.1); Basophils % 1.2 %; Eosinophils % 0.1 %; Lymphocytes # 2.2 10^3/uL (0.8-4.8); Lymphocytes % 27.2 %; Mean Corpuscular HGB Conc 32.4 g/dL (30-55); Mean Corpuscular Hemoglobin 36.3 pg (27-33); Mean Corpuscular Volume 111.9 fl (82-101); Mean Platelet Volume 10.2 fL (7.4-10.4); Monocytes # 0.9 10^3/uL (0.2-0.9); Monocytes % 10.4 %; Neutrophils # 4.58 10^3/uL (1.8-7.7); Neutrophils % 56.3 %; Nucleated Red Blood Cells % 0 %; Platelet Count 320 10^3/cmm (157-399); Red Blood Count 4.02 10^6/uL (3.85-5.65); Red Cell Distribution Width 13.8 % (12.1-15.1); White Blood Count 8.15 10^3/uL (3.29-11.43)
[2023-06-15 14:53] LABS: Add Urine Culture? Yes; Add Urine Microscopic? YES; Bacteria Urine TRACE /hpf; Bilirubin Urine Neg (Negative); Blood Urine 3+ (Negative); Glucose Urine UA Norm (Normal); Ketones Urine 1+ (Negative); Leukocyte Esterase Urine 2+ (Negative); Nitrate Urine Negative (Negative); Protein Urine 1+ (Negative); RBC Urine 0-4 /hpf (0-2); Specific Gravity, Urine 1.015 (1.005-1.030); Squamous Epithelial Cell Urine 0-4 /hpf (0-5); Urine Appearance Cloudy (CLEAR); Urine Color Yellow (Yellow); Urobilinogen Urine Norm (Negative); WBC Urine TOO NUMEROUS TO CNT /hpf (0-5); pH Urine 5 (5-7)
[2023-06-15 15:09] LABS: Lactic Sepsis W/Reflex 2.2 mmol/L (0.5-2.2)
[2023-06-15 15:22] LABS: Alanine Aminotransferase 10 U/L (0-41); Albumin Level 2.9 g/dL (3.5-5.2); Alkaline Phosphatase 62 U/L (40-130); Anion Gap 14.2 (5-19); Aspartate Amino Transferase 21 U/L (0-40); Blood Urea Nitrogen 22 mg/dL (8-23); Calcium 8.7 mg/dL (8.5-10.5); Carbon Dioxide 28 mmol/L (22-29); Chloride 106 mmol/L (98-107); Globulin 5.3 g/dL (1.3-4.6); Glomerular Filtration Rate 67.8 mL/min (90-130); Glucose 112 mg/dL (65-115); Lipase 25 U/L (13-60); NT Pro B Type Natriuretic Pept 78 pg/mL (0-125); Osmolality Calculated 302 mOsm/kg (285-295); Potassium 4.2 mmol/L (3.5-5.1); Sodium 144 mmol/L (136-145); Total Bilirubin 0.3 mg/dL (0.15-1.2); Total Protein 8.2 g/dL (6.6-8.7)
[2023-06-15] MEDS: iohexol 350 mg/mL 500 mL Btl (per mL) IV (15:52)
--- NOTE | 2023-06-15 16:01 | P.HP_ITS ---
Providers/Chief Complaint Primary Care Provider: Jessy Turcios Chief Complaint: ams, non verbal History of Present Illness Marco Bradley is a 63 year old male with a past medical history of seizures, history of Down syndrome, at baseline patient does not ambulate and is a Mimi lift, is dysphagia diet, is nonverbal at baseline, can say a few years here and there, does not follow commands, who comes into the emergency room from [facility], patient's mother, healthcare power of consumer attorney, is at baseline, tells me for the last 5 days patient has been more confused, less responsive, he has been on antibiotics, for the last 4 days, for concerns for UTI, he has had a poor appetite, no choking episodes no coughing episodes, no falls, he has not had any complaints, Review of Systems General: Reports: ROS unobtainable due to medical condition and ROS unobtainable due to mental status Medications/Allergies Home Medications Medication Instructions Recorded Confirmed Last Taken Type acetaminophen 325 mg tablet 650 mg PO QID PRN Pain 10/05/22 06/15/23 10/04/22 History bisacodyl 10 mg rectal suppository 10 mg AR DAILY PRN Constipation 10/05/22 06/15/23 10/02/22 History carbidopa 25 mg-levodopa 100 mg 1 tab PO TID 10/05/22 06/15/23 12/10/22 History tablet divalproex 250 mg tablet,delayed 500 mg PO TID 10/05/22 06/15/23 12/10/22 History release magnesium hydroxide 400 mg/5 mL 30 ml PO DAILY PRN Constipation 10/05/22 06/15/23 10/02/22 History oral suspension (Milk of Magnesia) polyethylene glycol 3350 17 gram 17 g PO BID 10/05/22 06/15/23 10/04/22 History oral powder packet (Miralax) sennosides 8.6 mg tablet (senna) 8.6 mg PO BID 10/05/22 06/15/23 12/09/22 History sodium phosphates 19 gram-7 118 ml AR DAILY PRN Constipation 10/05/22 06/15/23 Unknown History gram/118 mL enema (Fleet Enema) tetrahydrozoline 0.05 % eye drops 2 drp ophthalmic (eye) Q8H PRN Dry 10/05/22 06/15/23 Unknown History (Visine) Eye(S) donepezil 5 mg tablet 5 mg PO DAILY 12/10/22 06/15/23 12/09/22 History levothyroxine 125 mcg tablet 125 mcg PO DAILY 12/10/22 06/15/23 12/10/22 History tamsulosin 0.4 mg capsule 0.4 mg PO DAILY 12/10/22 06/15/23 12/09/22 History amoxicillin 500 mg-potassium 1 tab PO BID #4 tabs 12/16/22 06/15/23 Unknown Rx clavulanate 125 mg tablet (Augmentin) apixaban 5 mg (74 tabs) tablets in See Rx Instructions PO .COMPLEX 12/16/22 06/15/23 Unknown Rx a dose pack (EliquNemedia DVT-PE Treat #74 ea 30D Start) guaifenesin 100 mg/5 mL oral liquid 100 mg PO Q12H PRN Cough 06/15/23 06/15/23 Unknown History ketoconazole 2 % topical cream 1 applic topical BID 06/15/23 06/15/23 Unknown History levetiracetam 500 mg tablet 500 mg PO BID 06/15/23 06/15/23 Unknown History Allergies Allergy/AdvReac Type Severity Reaction Status Date / Time No Known Allergies Allergy Verified 06/15/23 14:34 PFSH Acute PFSH: Medical History Down syndrome Hypothyroidism Parkinsons Seizure disorder Surgical History No history of previous surgery Family History Mother Breast cancer Social History Smoking and tobacco/nicotine status: never used tobacco/nicotine Alcohol intake: never Substance/Drug Use: never Housing: Custodial Vitals/I&O/Wt Last Vital Signs Temp 99.0 F 06/15/23 13:13 Pulse 78 06/15/23 13:13 Resp 18 06/15/23 13:13 BP 124/86 06/15/23 13:13 Pulse Ox 95 06/15/23 13:13 O2 Del Method Room Air 06/15/23 13:13 Physical Exam Const: COMMON NORMALS: no acute distress EXAM LIMITATIONS: altered mental status ORIENTATION/CONSCIOUSNESS: Yes awake; not oriented to person, not oriented to place and not oriented to time HENMT: COMMON NORMALS: normocephalic Eye: COMMON NORMALS: Equal, round and reactive pupils present Lymph: LYMPHATIC: no lymphadenopathy noted Resp: COMMON NORMALS: normal respiratory effort, No retractions and No use of accessory muscles AUSCULTATION: crackles and wheezes Cardio: COMMON NORMALS: regular rate, regular rhythm, S1 normal heart sound present and S2 normal heart sound present RATE: tachycardic RHYTHM: regular rhythm HEART SOUNDS: S1 normal heart sound present and S2 normal heart sound present GI: OTHER: Abdomen soft, slightly distended, no guarding, no rebound, no rigidity, does have diffuse tenderness : COMMON NORMALS: Yes no CVA tenderness Extremity: COMMON NORMALS: no pedal edema Neuro: OTHER: Does not follow neurologic testing Data 06/15/23 14:38 06/15/23 14:38 A&P Assessment and plan (1) Goals of care, counseling/discussion: (2) Cystitis: (3) DVT (deep venous thrombosis): (4) Down syndrome: (5) Seizure disorder: (6) Parkinsons: (7) Hypothyroidism: (8) Acute encephalopathy: (9) Pneumonia: Qualifiers: Laterality: left Lung location: lower lobe of lung Pneumonia type: due to unspecified organism Qualified Code(s): J18.9 - Pneumonia, unspecified organism Plan Acute encephalopathy ?, Secondary to UTI, pneumonia ? Neurochecks, aspiration precautions, seizure precautions, Pneumonia ? Continue vancomycin, meropenem UTI follow urine cultures, blood cultures, continue meropenem, vancomycin CT scan abdomen pelvis, History of seizures, continue IV Keppra, Depakote if possible p.o. Hypothyroidism, IV levothyroxine, History of DVT, IV heparin Keep n.p.o., IV fluids for dehydration, ? CODE STATUS, DNR, but mother is okay with intubation if required ? Heparin drip for DVT prophylaxis Attestations Medical Necessity Statement*: Patient requires hospitalization, inpatient, greater than 2 midnights, for UTI, pneumonia, acute encephalopathy Diagnoses Goals of care, counseling/discussion Z71.89 Cystitis N30.90 DVT (deep venous thrombosis) I82.409 Down syndrome Q90.9 Seizure disorder G40.909 Parkinsons G20 Hypothyroidism E03.9 Acute encephalopathy G93.40 Pneumonia J18.9 Laterality: left Lung location: lower lobe of lung Pneumonia type: due to unspecified organism
[2023-06-15] MEDS: meropenem 1,000 MG in sodium chloride 0.9% (plus) 50 ML 100 MG IV ×2 (16:06→23:52)
[2023-06-15 16:26] LABS: INR 1.38 (0.8-1.2)
[2023-06-15 16:29] LABS: Reflex Lactate Order REFLEX LACTIC ORDERD
[2023-06-15 16:41] LABS: Cortisol Random 12.77 ug/dL (2.47-19.5); Procalcitonin 0.14 ng/mL (0-0.5); Thyroid Stimulating Hormone 6.22 uIU/mL (0.27-4.20)
[2023-06-15 16:52] LABS: C Reactive Protein 81.3 mg/L (0.0-4.9)
[2023-06-15 18:06] LABS: Lactic Acid level (Lactate) 1.8 mmol/L (0.5-2.2)
[2023-06-15 18:23] VITALS: BP 116/73; PULSE 81; RESP 23; TEMP 37.3; O2SAT 92
[2023-06-15 18:56] LABS: Chol HDL Ratio 5.07 mg/dL (1.0-5.00); Cholesterol 147 mg/dL (0-200); HDL Cholesterol 29 mg/dL (60-100); LDL Cholesterol Calculated 97 mg/dL (50-129); LDL HDL Ratio 3.34 RATIO (0.00-3.22); Triglycerides 104 mg/dL (0-150)
[2023-06-15 19:10] VITALS: BP 133/76; PULSE 76; RESP 17; TEMP 37.9; O2SAT 92
[2023-06-15] MEDS: sodium chloride 0.9% 1,000 ML 100 ML IV (19:43)
[2023-06-15] MEDS: pantoprazole 40 mg SDV IVP (19:43)
[2023-06-15] MEDS: levETIRAcetam 500 MG/100 ML PREMIX 400 MG IV (19:44)
[2023-06-15 20:10] VITALS: PULSE 71; RESP 18; O2SAT 89
[2023-06-15] MEDS: heparin 5,000 unit/mL INJ 1 mL IV (20:20)
[2023-06-15] MEDS: heparin drip 25,000 UNIT/500 ML PREMIX 19.99 UNIT IV (20:21)
--- NOTE | 2023-06-15 20:37 | PC.PHAR ---
Pharmacokinetic dosing service Date: 06/15/23 Time: 2037 Objective: Patient: Marco Bradley Floor: 270-1 Age: 63 yo Serum creatinine: 1.1 mg/dL Height: 64.2 Inches Weight (kg): 71.395 Diagnosis: Relevant medical/social history: Cultures and sensitivities: Other labs: Assessment: IBW (kg): 59.66 Dosing wt(kg): 71.395 Estimated Creatinine clearance (ml/min): 58.8 CRCL method: Cockcroft and Gault using ibw(default). Drug selected: Vancomycin Loading dose (mg): 0 Vd (liters): 64.3 (factor used: 0.9 L/kg) Royal (hr-1): 0.053 Half life (hrs): 13.08 Recommended dose: 1000 mg Interval: 12 hrs Infusion time (hrs): 1.5 Predicted peak (mcg/mL): 31.8 Predicted trough (mcg/mL): 18.23 Total body weight is being used for vancomycin dosing. Renal function is stable [ ] /unstable [ ] Recommendations: Give Vancomycin 1000 mg q 12 hrs with an expected Cpeak of 31.8 mcg/ml and an expected Ctrough of 18.23 mcg/ml Renal dosing of other antibiotics (review renal dosing of other medications and list guidelines here): Thank you for the consult, will continue to follow. Signature: Margi Barriga [facility]
[2023-06-15 21:22] LABS: Adenovirus Not Detected (NOT DETECT); Chlamydia Pneumoniae Not Detected (NOT DETECT); Coronavirus 229E,HKU1,NL63,OC4 Not Detected (NOT DETECT); Human Metapneumovirus Not Detected (NOT DETECT); Human Rhinovirus/Enterovirus Not Detected (NOT DETECT); Influenza A Not Detected (NOT DETECT); Influenza A H1 Not Detected (NOT DETECT); Influenza A H1-2009 Not Detected (NOT DETECT); Influenza A H3 Not Detected (NOT DETECT); Influenza B Not Detected (NOT DETECT); Mycoplasma Pneumoniae Not Detected (NOT DETECT); Parainfluenza Virus Type 1 Not Detected (NOT DETECT); Parainfluenza Virus Type 2 Not Detected (NOT DETECT); Parainfluenza Virus Type 3 Not Detected (NOT DETECT); Parainfluenza Virus Type 4 Not Detected (NOT DETECT); Respiratory Syncytial Virus A Not Detected (NOT DETECT); Respiratory Syncytial Virus B Not Detected (NOT DETECT); SARS-COV-2 Not Detected (NOT DETECT)
[2023-06-15] MEDS: vancomycin 1,000 MG in sodium chloride 0.9% 250 ML 250 MG IV (21:57)
[2023-06-15 22:00] VITALS: PULSE 65
[2023-06-15 23:53] VITALS: BP 93/59; PULSE 68; RESP 16; TEMP 37.6; O2SAT 98
[2023-06-16] VITALS (12 sets, daily range): BP systolic 99–126; BP diastolic 55–72; PULSE 53–67; RESP 16–17; TEMP 36.4–37.4; O2SAT 92–97
[2023-06-16 02:44] LABS: Hematocrit 41.6 % (37-53); Mean Corpuscular HGB Conc 32.7 g/dL (30-55); Mean Corpuscular Hemoglobin 36.5 pg (27-33); Mean Corpuscular Volume 111.5 fl (82-101); Mean Platelet Volume 10.1 fL (7.4-10.4); Platelet Count 270 10^3/cmm (157-399); Red Blood Count 3.73 10^6/uL (3.85-5.65); Red Cell Distribution Width 13.7 % (12.1-15.1); White Blood Count 5.29 10^3/uL (3.29-11.43)
[2023-06-16 03:01] LABS: Alanine Aminotransferase 12 U/L (0-41); Albumin Level 2.6 g/dL (3.5-5.2); Alkaline Phosphatase 51 U/L (40-130); Anion Gap 9.2 (5-19); Aspartate Amino Transferase 19 U/L (0-40); Blood Urea Nitrogen 20 mg/dL (8-23); Calcium 8.6 mg/dL (8.5-10.5); Carbon Dioxide 30 mmol/L (22-29); Chloride 111 mmol/L (98-107); Globulin 4.7 g/dL (1.3-4.6); Glomerular Filtration Rate 75.7 mL/min (90-130); Glucose 91 mg/dL (65-115); Magnesium 2.2 mg/dL (1.7-2.3); Osmolality Calculated 304 mOsm/kg (285-295); Phosphorus 3.6 mg/dL (2.5-4.5); Potassium 4.2 mmol/L (3.5-5.1); Sodium 146 mmol/L (136-145); Total Bilirubin 0.5 mg/dL (0.15-1.2); Total Protein 7.3 g/dL (6.6-8.7)
[2023-06-16 03:02] LABS: Partial Thromboplastin Time 73.1 SECONDS (23.9-36.7)
[2023-06-16 03:34] LABS: Absolute Segmented Neutrophil 2.3 10/cmm (1.6-7.1); Lymphocytes 36 %; Segmented Neutrophils 44 %; Slide Review Slide Review Perform; Total Cells Counted 100 (0-100)
[2023-06-16 03:35] LABS: Absolute Neutrophil 2.3 10^3/cmm (1.4-6.5); Eosinophils 0 %; Lymphocytes Absolute 1.9 10^3/cmm (1.2-3.4); Monocytes Absolute 0.6 10^3/cmm (0.1-0.6); Platelet Estimate Normal (Normal)
[2023-06-16] MEDS: levETIRAcetam 500 MG/100 ML PREMIX 400 MG IV ×2 (06:45→18:30)
[2023-06-16] MEDS: pantoprazole 40 mg SDV IVP ×2 (07:18→18:30)
[2023-06-16] MEDS: meropenem 1,000 MG in sodium chloride 0.9% (plus) 50 ML 100 MG IV ×3 (08:08→23:35)
[2023-06-16] MEDS: sodium chloride 0.9% 1,000 ML 100 ML IV (08:08)
[2023-06-16 09:45] LABS: Partial Thromboplastin Time 56.2 SECONDS (23.9-36.7)
[2023-06-16] MEDS: heparin 5,000 unit/mL INJ 1 mL IV ×2 (09:59→16:34)
[2023-06-16] MEDS: vancomycin 1,000 MG in sodium chloride 0.9% 250 ML 250 MG IV ×2 (10:04→20:42)
[2023-06-16] MEDS: levothyroxine 100 mcg SDV 62.5 MCG IVP (10:42)
--- NOTE | 2023-06-16 11:07 | ECG_ITS ---
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 Measurements Intervals [place] Rate: 53 P: 35 WA: 176 QRS: 42 QRSD: 86 T: 1 QT: 414 QTc: 390 Interpretive Statements SINUS BRADYCARDIA INTERPRETATION BASED ON A DEFAULT AGE OF 40 YEARS Compared to ECG 06/15/2023 13:52:03 Sinus rhythm no longer present T-wave abnormality no longer present Electronically Signed On 06-16-2023 13:10:20 CDT by Peg Mckoy M.D. [id number]
--- NOTE | 2023-06-16 15:12 | PM.PN ---
Subjective Subjective: Patient was seen this morning, mother is at bedside he is much more alert, awake, he does not follow commands, was not but able to smile with to nursing staff, no fevers overnight, remains hemodynamically stable, on 2 L nasal cannula Vitals/I&O/Wt Last Vital Signs Temp 98.6 F 06/16/23 12:00 Pulse 54 L 06/16/23 12:00 Resp 16 06/16/23 12:00 BP 103/58 06/16/23 12:00 Pulse Ox 95 06/16/23 11:49 O2 Del Method Nasal Cannula 06/16/23 11:02 O2 Flow Rate 2 06/16/23 11:02 06/16/23 06/16/23 06/16/23 06:59 14:59 22:59 Intake Total 1345.266 / 1495.266 490 / 490 Balance 1345.266 / 1495.266 490 / 490 Weight last 48 hrs Weight 71.395 kg Physical Exam Const: COMMON NORMALS: no acute distress Neck/C-Spine: COMMON NORMALS: no JVD Resp: COMMON NORMALS: normal respiratory effort, No retractions, No use of accessory muscles and clear to auscultation bilaterally AUSCULTATION: clear to auscultation bilaterally Cardio: COMMON NORMALS: no JVD, regular rate, regular rhythm, S1 normal heart sound present and S2 normal heart sound present RATE: regular rate RHYTHM: regular rhythm HEART SOUNDS: S1 normal heart sound present and S2 normal heart sound present GI: COMMON NORMALS: Normal to inspection, nondistended, normoactive bowel sounds present and non-tender Extremity: COMMON NORMALS: no pedal edema Data 06/16/23 02:33 06/16/23 02:33 Micro: Microbiology 06/15/23 14:16 Urine Culture - Preliminary Urine,Clean Catch Coag positive Staphylococcus 06/15/23 17:41 Blood Culture - Preliminary Blood SPECIMEN COLLECTED 06/15/23 17:39 Blood Culture - Preliminary Blood SPECIMEN COLLECTED A&P Assessment and plan (1) Goals of care, counseling/discussion: (2) Cystitis: (3) DVT (deep venous thrombosis): (4) Down syndrome: (5) Seizure disorder: (6) Parkinsons: (7) Hypothyroidism: (8) Acute encephalopathy: (9) Pneumonia: Qualifiers: Laterality: left Lung location: lower lobe of lung Pneumonia type: due to unspecified organism Qualified Code(s): J18.9 - Pneumonia, unspecified organism (10) Hypoxia: Plan Acute encephalopathy ?, Secondary to UTI, pneumonia ? Neurochecks, aspiration precautions, seizure precautions, Pneumonia, with hypoxia on 2 L ? Continue vancomycin, meropenem UTI follow urine cultures, blood cultures, continue meropenem, vancomycin CT scan abdomen pelvis, no acute findings History of seizures, continue IV Keppra, Depakote if possible p.o. Hypothyroidism, IV levothyroxine, History of DVT, IV heparin Keep n.p.o., IV fluids for dehydration, speech therapy eval ? CODE STATUS, DNR, but mother is okay with intubation if required ? Heparin drip for DVT prophylaxis Patient requires hospitalization for UTI, pneumonia, acute cephalopathy, hypoxia Attestations Medical Necessity Statement*: Patient requires hospitalization for UTI, pneumonia, hypoxia, encephalopathy Diagnoses Goals of care, counseling/discussion Z71.89 Cystitis N30.90 DVT (deep venous thrombosis) I82.409 Down syndrome Q90.9 Seizure disorder G40.909 Parkinsons G20 Hypothyroidism E03.9 Acute encephalopathy G93.40 Pneumonia J18.9 Laterality: left Lung location: lower lobe of lung Pneumonia type: due to unspecified organism Hypoxia R09.02
[2023-06-16 16:15] LABS: Erythrocyte Sedimentation Rate 73 mm/hr (0-10)
[2023-06-16 16:23] LABS: Partial Thromboplastin Time 83.4 SECONDS (23.9-36.7)
[2023-06-16] MEDS: lanolin oint 7 gm 1 APPLIC TOPICAL (16:40)
[2023-06-16] MEDS: sodium chloride 0.9% 1,000 ML 75 ML IV (19:54)
[2023-06-16] MEDS: heparin drip 25,000 UNIT/500 ML PREMIX 18.56 UNIT IV (19:54)
--- NOTE | 2023-06-16 22:35 | PC.NURSE ---
Day shift nurse titrated heparin drip down one unit/kg/hr bringing rate to 13 units/kg/hour (950 units/hour) but did not document in the mar flowsheet. This nurse received current ptt and adjusted drip per protocol and documented current rate in mar flowsheet. supervisor sample verified dose with this nurse.
[2023-06-17] VITALS (11 sets, daily range): BP systolic 100–113; BP diastolic 63–82; PULSE 46–62; RESP 16–18; TEMP 36.4–36.8; O2SAT 93–97
[2023-06-17 03:25] LABS: Mean Corpuscular HGB Conc 32.8 g/dL (30-55); Mean Corpuscular Volume 109.6 fl (82-101); Mean Platelet Volume 10.1 fL (7.4-10.4); Platelet Count 262 10^3/cmm (157-399); Red Blood Count 3.56 10^6/uL (3.85-5.65); White Blood Count 4.77 10^3/uL (3.29-11.43)
[2023-06-17 03:43] LABS: Alanine Aminotransferase 12 U/L (0-41); Albumin Level 2.5 g/dL (3.5-5.2); Alkaline Phosphatase 49 U/L (40-130); Anion Gap 9.8 (5-19); Aspartate Amino Transferase 29 U/L (0-40); Blood Urea Nitrogen 19 mg/dL (8-23); Calcium 8.3 mg/dL (8.5-10.5); Carbon Dioxide 27 mmol/L (22-29); Chloride 109 mmol/L (98-107); Globulin 4.4 g/dL (1.3-4.6); Glomerular Filtration Rate 75.7 mL/min (90-130); Glucose 83 mg/dL (65-115); Osmolality Calculated 295 mOsm/kg (285-295); Phosphorus 2.8 mg/dL (2.5-4.5); Potassium 3.8 mmol/L (3.5-5.1); Sodium 142 mmol/L (136-145); Total Bilirubin 0.4 mg/dL (0.15-1.2); Total Protein 6.9 g/dL (6.6-8.7)
[2023-06-17 03:52] LABS: Absolute Neutrophil 2.5 10^3/cmm (1.4-6.5); Absolute Segmented Neutrophil 2.5 10/cmm (1.6-7.1); Eosinophils 0 %; Lymphocytes 36 %; Lymphocytes Absolute 1.7 10^3/cmm (1.2-3.4); Monocytes Absolute 0.3 10^3/cmm (0.1-0.6); Partial Thromboplastin Time 71.6 SECONDS (23.9-36.7); Platelet Estimate Normal (Normal); Segmented Neutrophils 52 %; Slide Review Slide Review Perform; Total Cells Counted 100 (0-100)
[2023-06-17] MEDS: pantoprazole 40 mg SDV IVP ×2 (06:12→18:22)
[2023-06-17] MEDS: levETIRAcetam 500 MG/100 ML PREMIX 400 MG IV (06:12)
[2023-06-17] MEDS: meropenem 1,000 MG in sodium chloride 0.9% (plus) 50 ML 100 MG IV ×2 (08:59→16:38)
[2023-06-17 09:42] LABS: Partial Thromboplastin Time 56.4 SECONDS (23.9-36.7)
[2023-06-17 09:51] LABS: Vancomycin Trough 17.3 ug/mL (10-15)
[2023-06-17] MEDS: levothyroxine 100 mcg SDV 62.5 MCG IVP (10:00)
[2023-06-17] MEDS: vancomycin 1,000 MG in sodium chloride 0.9% 250 ML 250 MG IV ×2 (10:27→22:33)
--- NOTE | 2023-06-17 13:04 | P.PN_ITS ---
Subjective Subjective: Patient was seen this morning, patient's mother is at bedside, he is able to follow some commands such as smile for me, afebrile overnight, normotensive, Vitals/I&O/Wt Last Vital Signs Temp 98.0 F 06/17/23 07:21 Pulse 50 L 06/17/23 07:21 Resp 17 06/17/23 07:21 BP 106/70 06/17/23 07:21 Pulse Ox 94 06/17/23 07:21 O2 Del Method Nasal Cannula 06/17/23 07:14 O2 Flow Rate 2 06/17/23 07:14 06/16/23 06/17/23 06/17/23 23:59 06:59 14:59 Intake Total 300 / 300 Balance 300 / 300 Weight last 48 hrs Weight 71.395 kg Physical Exam Const: COMMON NORMALS: no acute distress and patient oriented x3 Resp: COMMON NORMALS: normal respiratory effort, No retractions, No use of accessory muscles and clear to auscultation bilaterally AUSCULTATION: clear to auscultation bilaterally Cardio: COMMON NORMALS: regular rate, regular rhythm, S1 normal heart sound present and S2 normal heart sound present RATE: regular rate RHYTHM: regular rhythm HEART SOUNDS: S1 normal heart sound present and S2 normal heart sound present GI: COMMON NORMALS: Normal to inspection, nondistended, normoactive bowel sounds present and non-tender Extremity: COMMON NORMALS: no pedal edema Neuro: COMMON NORMALS: patient oriented x3 Data 06/17/23 03:16 06/17/23 03:16 Micro: Microbiology 06/15/23 17:41 Blood Culture - Preliminary Blood NEGATIVE TO DATE 06/15/23 17:39 Blood Culture - Preliminary Blood NEGATIVE TO DATE 06/15/23 14:16 Urine Culture - Preliminary Urine,Clean Catch Coag positive Staphylococcus A&P Assessment and plan (1) Goals of care, counseling/discussion: (2) Cystitis: (3) DVT (deep venous thrombosis): (4) Down syndrome: (5) Seizure disorder: (6) Parkinsons: (7) Hypothyroidism: (8) Acute encephalopathy: (9) Pneumonia: Qualifiers: Laterality: left Lung location: lower lobe of lung Pneumonia type: due to unspecified organism Qualified Code(s): J18.9 - Pneumonia, unspecified organism (10) Hypoxia: Plan Acute encephalopathy, resolving ?, Secondary to UTI, pneumonia ? Neurochecks, aspiration precautions, seizure precautions, Pneumonia, with hypoxia on 2 L ? Continue vancomycin, meropenem UTI follow urine cultures, blood cultures, continue meropenem, vancomycin CT scan abdomen pelvis, no acute findings History of seizures, continue IV Keppra, Depakote if possible p.o. Hypothyroidism, IV levothyroxine, History of DVT, IV heparin Advance diet as tolerated as per speech therapy's recommendation, wean off fluids ? CODE STATUS, DNR, but mother is okay with intubation if required ? Heparin drip for DVT prophylaxis Patient requires hospitalization for UTI, pneumonia, acute cephalopathy, hypoxia , Wean of heparin drip switch to Eliquis 5 mg p.o. twice daily, switch to p.o. Keppra, switch to p.o. Synthyroid Attestations Medical Necessity Statement*: Patient requires hospitalization for pneumonia, UTI, Diagnoses Goals of care, counseling/discussion Z71.89 Cystitis N30.90 DVT (deep venous thrombosis) I82.409 Down syndrome Q90.9 Seizure disorder G40.909 Parkinsons G20 Hypothyroidism E03.9 Acute encephalopathy G93.40 Pneumonia J18.9 Laterality: left Lung location: lower lobe of lung Pneumonia type: due to unspecified organism Hypoxia R09.02
[2023-06-17] MEDS: sodium chloride 0.9% 1,000 ML 75 ML IV (13:51)
[2023-06-17 16:09] LABS: Partial Thromboplastin Time 76.3 SECONDS (23.9-36.7)
[2023-06-17] MEDS: apixaban 5 mg Tablet PO (22:05)
[2023-06-17] MEDS: carbidopa-levodopa 25-100mg Tablet 1 EACH PO (22:05)
[2023-06-17] MEDS: levETIRAcetam 1,000 mg/10 mL UDC 500 MG PO (23:19)
[2023-06-17] MEDS: valproic acid 250 mg/5 mL UDC 500 MG PO (23:19)
--- NOTE | 2023-06-17 23:25 | PC.NURSE ---
per the family, pt mother does not want pt given morphine for pain.
[2023-06-18] VITALS (11 sets, daily range): BP systolic 93–117; BP diastolic 60–72; PULSE 48–61; RESP 14–18; TEMP 36.8–37.1; O2SAT 92–98
[2023-06-18] MEDS: meropenem 1,000 MG in sodium chloride 0.9% (plus) 50 ML 100 MG IV ×4 (00:20→23:27)
[2023-06-18 05:05] LABS: Basophils # 0.1 10^3/uL (0.0-0.1); Basophils % 2.6 %; Eosinophils # 0.1 10^3/uL (0.0-0.8); Eosinophils % 1.9 %; Hematocrit 41.8 % (37-53); Lymphocytes # 2.1 10^3/uL (0.8-4.8); Lymphocytes % 38.7 %; Mean Corpuscular HGB Conc 32.3 g/dL (30-55); Mean Corpuscular Hemoglobin 36.1 pg (27-33); Mean Corpuscular Volume 111.8 fl (82-101); Mean Platelet Volume 10.4 fL (7.4-10.4); Monocytes # 0.6 10^3/uL (0.2-0.9); Monocytes % 10.2 %; Nucleated Red Blood Cells % 0 %; Platelet Count 257 10^3/cmm (157-399); Red Blood Count 3.74 10^6/uL (3.85-5.65); Red Cell Distribution Width 13.1 % (12.1-15.1); White Blood Count 5.37 10^3/uL (3.29-11.43)
[2023-06-18 05:33] LABS: Alanine Aminotransferase 6 U/L (0-41); Albumin Level 2.7 g/dL (3.5-5.2); Alkaline Phosphatase 56 U/L (40-130); Aspartate Amino Transferase 33 U/L (0-40); Blood Urea Nitrogen 17 mg/dL (8-23); Calcium 8.1 mg/dL (8.5-10.5); Carbon Dioxide 28 mmol/L (22-29); Chloride 107 mmol/L (98-107); Globulin 4.2 g/dL (1.3-4.6); Glomerular Filtration Rate 67.8 mL/min (90-130); Glucose 80 mg/dL (65-115); Osmolality Calculated 293 mOsm/kg (285-295); Phosphorus 2.4 mg/dL (2.5-4.5); Sodium 141 mmol/L (136-145); Total Bilirubin 0.6 mg/dL (0.15-1.2); Total Protein 6.9 g/dL (6.6-8.7)
[2023-06-18 05:53] LABS: Slide Review Slide Review Perform
[2023-06-18] MEDS: pantoprazole 40 mg SDV IVP ×2 (06:18→17:57)
[2023-06-18] MEDS: sodium chloride 0.9% 1,000 ML 50 ML IV (06:20)
--- NOTE | 2023-06-18 08:17 | USCV_ITS ---
Marco Bradley Age: 63 Gender: M : 1960 Exam Date: 06/18/2023 13:14 Ordering Phys: Jonh Walls MD Technologist: Evan English Exam Location: [facility] [place] Indication: chf BP: 132 / 74 HR: 67 Rhythm: Sinus Technical Quality: Adequate MEASUREMENTS (Male / Female) Normal Values 2D ECHO LV Diastolic Diameter PLAX 2.2 cm 4.2 - 5.9 / 3.9 - 5.3 cm LV Systolic Diameter PLAX 2.0 cm IVS Diastolic Thickness 2.6 cm 0.6 - 1.0 / 0.6 - 0.9 cm IVS Systolic Thickness 2.8 cm LVPW Diastolic Thickness 2.5 cm 0.6 - 1.0 / 0.6 - 0.9 cm LVPW Systolic Thickness 0.9 cm LVOT Diameter 2.0 cm LV Ejection Fraction 2D Teich 77.7 % LV Ejection Fraction MOD 2C 61.6 % LV Ejection Fraction 2C AL 65.3 % LA Diameter 3.5 cm M-MODE Aortic Annulus Diameter 3.0 cm LA Ao Ratio MM 1.1 MV E Point Septal Separation 0.9 cm DOPPLER AV Peak Velocity 86.8 cm/s LVOT Peak Velocity 85.0 cm/s AV Area Cont Eq vti 3.7 cm squared AV Area Cont Eq pk 3.2 cm squared MV Area PHT 3.0 cm squared Mitral E to A Ratio 1.0 MV E' Velocity 41.0 cm/s Mitral E to MV E' Ratio 9.5 Mitral E to LV E' Lateral Ratio 10.4 Mitral E to LV E' Septal Ratio 8.8 TR Peak Velocity 91.0 cm/s TR Peak Gradient 3.3 mmHg Right Atrial Pressure 3.0 mmHg Pulmonary Artery Systolic Pressu 6.3 mmHg RV Acceleration Time 0.2 s FINDINGS Left Ventricle Left ventricle is normal in size. Grossly LV systolic function is normal with EF 55 to 60%. Accurate assessment of regional wall motion abnormalities not possible because of poor visualization. Right Ventricle Normal in size and function Right Atrium Normal in size Left Atrium Normal in size Mitral Valve Mild mitral annular calcification. Aortic Valve Aortic valve is thickened. No significant stenosis or regurgitation. Tricuspid Valve Not well visualized Pulmonic Valve Not well-visualized Pericardium Normal Aorta Normal in size IVC Not well visualized CONCLUSIONS Technically limited quality echocardiogram because of poor ultrasonic windows. Grossly LV systolic function is normal. Accurate comparison with prior echocardiogram not possible because of poor visualization. Jay Maldonado MD (Electronically Signed) Final Date: 18 June 2023 17:46 S
--- NOTE | 2023-06-18 08:17 | CT_ITS ---
WS: [id number] CT LUMBAR SPINE, noncontrast. HISTORY: staph infection TECHNIQUE: Contiguous 2.0 mm axial imaging are performed. Sagittal and coronal reformats are submitte d and reviewed. All CT scans at [facility] use at least one of these dose optimization techni ques: automated exposure control; mA and/or kV adjustment per patient size (includes targeted exams w here dose is matched to clinical indication); or iterative reconstruction. IV contrast: None DLP: 1764.62 mGy.cm COMPARISON: None available. Grade 1 anterolisthesis L5 by 8.5 mm. Severe disc space narrowing at L5-S1. Bilateral pars defects at L5. No fractures are identified involving the vertebral bodies. No bone destruction. L1-2: Normal. L2-3: Slight retrolisthesis of L2. Mild disc bulging. No stenosis. L3-4: Mild annular disc bulging. No high-grade stenosis. L4-5: Mild annular disc bulging encroaching upon the subarticular recesses and the traversing L5 nerv e roots. No high-grade stenosis. L5-S1: Moderate to severe bilateral foraminal stenosis. There is significant stenosis and disc encroa chment upon the exiting L5 nerve roots. In part this is due to the grade 1 anterolisthesis of L5. Small amount of degenerative air in the SI joints. Urinary bladder is markedly distended extending to near the umbilical level. IMPRESSION: 1. No discitis or osteomyelitis or bone destruction identified by unenhanced CT. 2. Grade 1 spondylolisthesis of L5 with bilateral pars defects. 3. Moderate to severe bilateral foraminal stenosis at L5-S1 with significant disc encroachment upon t he exiting L5 nerve roots. 4. Mild disc encroachment upon the traversing L5 nerve roots at L4-5. 5. Marked distention of the urinary bladder.
--- NOTE | 2023-06-18 08:17 | CT_ITS ---
WS: [id number] CT CERVICAL SPINE HISTORY: staph infection TECHNIQUE: Contiguous 2.0 mm axial imaging performed through the entire cervical spine. Sagittal and coronal reformats also performed. All CT scans at [facility] use at least one of these dose o ptimization techniques: automated exposure control; mA and/or kV adjustment per patient size (include s targeted exams where dose is matched to clinical indication); or iterative reconstruction. DLP: 203.47 mGy.cm COMPARISON: None available. Less than 2 mm anterolisthesis of C2 and retrolisthesis of C4. Disc spaces are moderately narrowed at C3-4, C4-5 and C5-6. No fractures. Facet joint is fused on the RIGHT at C7-T1. Mild RIGHT curvature cervical spine. No destructive bone process. C2-C3: Moderate size central disc protrusion. Mild bilateral facet arthritis. C3-C4: Osteophytic ridging with a central disc osteophyte complex. Encroachment and deformity of the LEFT thecal sac. Severe LEFT and moderate RIGHT foraminal stenosis. C4-C5: Osteophytic ridging and a central disc protrusion. Moderate to severe bilateral facet arthriti s and central stenosis. C5-C6: Osteophytic ridging with bilateral facet arthritis. Mild central with moderate foraminal steno sis. C6-C7: Normal. C7-T1: Normal. Soft tissues are normal. Lung apices are clear. IMPRESSION: 1. Multilevel degenerative disc disease and facet arthritis with disc protrusions resulting in stenos es as described above. 2. Moderate size central disc protrusion at C2-3. 3. Central to LEFT subarticular recess disc protrusion at C3-4. Severe LEFT and moderate RIGHT forami nal stenosis. 4. Moderate to severe central and foraminal stenoses at C4-5 and C5-6. 5. No destructive bone lesions.
--- NOTE | 2023-06-18 08:17 | CT_ITS ---
WS: [id number] CT chest wo con [id number] HISTORY: staph infection TECHNIQUE: Axial imaging performed through the thorax. Coronal and sagittal reformats are submitted. All CT scans at [facility] use at least one of these dose optimization techniques: automated exposure control; mA and/or kV adjustment per patient size (includes targeted exams where dose is mat ched to clinical indication); or iterative reconstruction. CONTRAST: None DLP: 1764.62 mGy.cm COMPARISON: 12/10/2022 Quality is compromised by patient's physical condition. There is diffuse motion artifact. Beam harden ing artifact from patient's arms being placed at the side. Lungs and central airway: Lung volumes are decreased with diffuse motion artifact. There is hazy mild groundglass attenuation noted bilaterally. Some of this is in part due to the poor inspiration and b reathing artifact. Small amount of pneumonitis may also be present. Pleura: Mild pleural thickening. Heart and pericardium: Mild cardiomegaly. Mediastinum and kelly: No mediastinum or hilar adenopathy. Vessels: Normal size aortic and pulmonary artery. No coronary artery calcifications. Chest wall and lower neck: No soft tissue masses. Upper abdomen: Increased density in the gallbladder is probably vicarious excretion of IV contrast re lated to a CT from 06/15/2023. Cholelithiasis is evident. No evidence for acute cholecystitis. No adre nal mass. Small hiatal hernia. Osseous structures: Mild increase in thoracic kyphosis with multiple contiguous Schmorl's nodes defec t with mild anterior wedging of the thoracic vertebral bodies. IMPRESSION: 1. Lung volumes are decreased with motion artifact. 2. No pulmonary consolidations. A small amount of pneumonitis may be superimposed on the motion breat whitley artifact. 3. No adenopathy. 4. Mild cardiomegaly. 5. Cholelithiasis. No evidence for acute cholecystitis.
--- NOTE | 2023-06-18 08:17 | CT_ITS ---
WS: [id number] CT THORACIC SPINE HISTORY: Staph infection. TECHNIQUE: Contiguous 2.0 mm axial images are reviewed to thoracic spine. Images are reformatted in s agittal and coronal planes. All CT scans at [facility] use at least one of these dose optimiz ation techniques: automated exposure control; mA and/or kV adjustment per patient size (includes targ eted exams where dose is matched to clinical indication); or iterative reconstruction. DLP: 1764.62 mGy.cm COMPARISON: None available. Mild increase in thoracic kyphosis. No destructive bone lesions. Multiple Schmorl's nodes defects res ulting in mild anterior wedging are noted including T3, T4, T5, T6, T7 and T8. No osteolytic or blast ic changes. No central or foraminal stenosis. No large disc protrusions or herniations. Motion artifact throughou t the lungs. Mild dependent changes. IMPRESSION: 1. No thoracic spine osteolytic or osteoblastic changes. 2. Numerous contiguous Schmorl's nodes resulting in mild anterior wedging from T3-T8.
[2023-06-18] MEDS: donepezil 5 MG Tablet PO (09:52)
[2023-06-18] MEDS: valproic acid 250 mg/5 mL UDC 500 MG PO ×3 (09:52→20:30)
[2023-06-18] MEDS: levothyroxine 125 mcg Tablet PO (09:52)
[2023-06-18] MEDS: apixaban 5 mg Tablet PO ×2 (09:52→20:30)
[2023-06-18] MEDS: carbidopa-levodopa 25-100mg Tablet 1 EACH PO ×3 (09:52→20:30)
[2023-06-18 10:19] LABS: Erythrocyte Sedimentation Rate 63 mm/hr (0-10)
--- NOTE | 2023-06-18 11:01 | PC.SOCIAL ---
Pg 2 IMM Explained to Pt's mother Pg 2 IMM. No questions voiced. Provided pt a copy. Initialed, dated, & timed a copy & placed in chart.
[2023-06-18] MEDS: vancomycin 1,000 MG in sodium chloride 0.9% 250 ML 250 MG IV ×2 (11:22→22:00)
[2023-06-18] MEDS: levETIRAcetam 1,000 mg/10 mL UDC 500 MG PO ×2 (11:26→17:57)
--- NOTE | 2023-06-18 15:40 | PM.PN ---
Subjective Subjective: Patient was seen this morning, I had extensive discussion with patient's family at bedside, about his staff aureus UTI, he has not had a Rich catheter, no artificial hardware, he was straight cathed by the intermediate a few weeks ago, I discussed with him that Staph aureus UTI is quite unusual, his blood cultures so far negative, overall he is getting better, and that he is afebrile, however I am going to do a christiansen CT scan of the spine of the chest to rule out discitis vertebral osteomyelitis or an epidural abscess, will order echocardiogram to rule out endocarditis, his ESR is over 60, will need to monitor as outpatient, potentially we can discharge him tomorrow if the work-up comes back negative, patient is able to smile for me, family at bedside tells me that his mentation is significantly better, he is also tolerating dysphagia diet, he is more interactive he is more of his usual self Vitals/I&O/Wt Last Vital Signs Temp 98.3 F 06/18/23 11:19 Pulse 57 L 06/18/23 11:19 Resp 18 06/18/23 11:19 BP 103/66 06/18/23 11:19 Pulse Ox 94 06/18/23 11:19 O2 Del Method Room Air 06/18/23 11:19 O2 Flow Rate 1 06/17/23 20:00 06/18/23 06/18/23 06/18/23 06:59 14:59 22:59 Intake Total 1300 / 2939.952 1520 / 1520 Output Total 500 / 500 Balance 1300 / 2939.952 1020 / 1020 Physical Exam Const: COMMON NORMALS: no acute distress ORIENTATION/CONSCIOUSNESS: Yes awake and Yes oriented to person; not oriented to place and not oriented to time Resp: COMMON NORMALS: normal respiratory effort, No retractions, No use of accessory muscles and clear to auscultation bilaterally AUSCULTATION: clear to auscultation bilaterally Cardio: COMMON NORMALS: regular rate, regular rhythm, S1 normal heart sound present and S2 normal heart sound present RATE: regular rate RHYTHM: regular rhythm HEART SOUNDS: S1 normal heart sound present and S2 normal heart sound present GI: COMMON NORMALS: Normal to inspection, nondistended, normoactive bowel sounds present and non-tender Extremity: COMMON NORMALS: no pedal edema Neuro: SENSORIUM/ORIENTATION: Yes oriented to person, No oriented to place and No oriented to time Psych: COMMON NORMALS: mental status grossly normal Data 06/18/23 04:44 06/18/23 04:44 Micro: Microbiology 06/15/23 14:16 Urine Culture - Final Urine,Clean Catch Staphylococcus aureus A&P Assessment and plan (1) Goals of care, counseling/discussion: (2) Cystitis: (3) DVT (deep venous thrombosis): (4) Down syndrome: (5) Seizure disorder: (6) Parkinsons: (7) Hypothyroidism: (8) Acute encephalopathy: (9) Pneumonia: Qualifiers: Laterality: left Lung location: lower lobe of lung Pneumonia type: due to unspecified organism Qualified Code(s): J18.9 - Pneumonia, unspecified organism (10) Hypoxia: Plan Acute encephalopathy, resolving ?, Secondary to UTI, pneumonia ? Neurochecks, aspiration precautions, seizure precautions, Pneumonia, with hypoxia on 2 L ? Continue vancomycin, meropenem Staph aureus UTI, follow blood cultures, CT spinal cord, CT chest, cardiac echo, ESR, follow blood cultures CT scan abdomen pelvis, no acute findings History of seizures, continue IV Keppra, Depakote if possible p.o. Hypothyroidism, IV levothyroxine, History of DVT, IV heparin Advance diet as tolerated as per speech therapy's recommendation, wean off fluids ? CODE STATUS, DNR, but mother is okay with intubation if required ? Heparin drip for DVT prophylaxis Patient requires hospitalization for UTI, pneumonia, acute cephalopathy, hypoxia Plan for today, will do multiple CT scans of the spine, CT chest, cardiac echo, follow blood cultures, ESR, has Staph aureus UTI, which is quite unusual given that he does not have Rich cath and no artificial hardware, Attestations Medical Necessity Statement*: Patient requires hospitalization for acute encephalopathy, pneumonia, Staph aureus UTI Diagnoses Goals of care, counseling/discussion Z71.89 Cystitis N30.90 DVT (deep venous thrombosis) I82.409 Down syndrome Q90.9 Seizure disorder G40.909 Parkinsons G20 Hypothyroidism E03.9 Acute encephalopathy G93.40 Pneumonia J18.9 Laterality: left Lung location: lower lobe of lung Pneumonia type: due to unspecified organism Hypoxia R09.02
[2023-06-18 20:27] LABS: Glucose Point of Care 119 mg/dL (70-110)
--- NOTE | 2023-06-18 23:19 | PC.NURSE ---
Patient has only had small out of dribbling in brief during this shift. Bladder scan shows 343. notified. Ordered to straight cath.
[2023-06-19] VITALS (8 sets, daily range): BP systolic 95–127; BP diastolic 59–73; PULSE 44–64; RESP 15–18; TEMP 36.4–38.1; O2SAT 91–96
[2023-06-19 06:47] LABS: Basophils # 0.1 10^3/uL (0.0-0.1); Basophils % 1.8 %; Eosinophils # 0.2 10^3/uL (0.0-0.8); Eosinophils % 2.9 %; Hematocrit 39.5 % (37-53); Lymphocytes # 1.8 10^3/uL (0.8-4.8); Lymphocytes % 31.6 %; Mean Corpuscular HGB Conc 32.7 g/dL (30-55); Mean Corpuscular Volume 110.3 fl (82-101); Mean Platelet Volume 10.6 fL (7.4-10.4); Monocytes # 0.6 10^3/uL (0.2-0.9); Monocytes % 11.1 %; Neutrophils # 2.57 10^3/uL (1.8-7.7); Neutrophils % 45.6 %; Nucleated Red Blood Cells % 0 %; Platelet Count 224 10^3/cmm (157-399); Red Blood Count 3.58 10^6/uL (3.85-5.65); Red Cell Distribution Width 13.2 % (12.1-15.1); White Blood Count 5.61 10^3/uL (3.29-11.43)
[2023-06-19 07:00] LABS: Alanine Aminotransferase 8 U/L (0-41); Albumin Level 2.5 g/dL (3.5-5.2); Alkaline Phosphatase 52 U/L (40-130); Anion Gap 10.2 (5-19); Aspartate Amino Transferase 29 U/L (0-40); Blood Urea Nitrogen 12 mg/dL (8-23); Carbon Dioxide 28 mmol/L (22-29); Chloride 107 mmol/L (98-107); Globulin 3.7 g/dL (1.3-4.6); Glomerular Filtration Rate 75.7 mL/min (90-130); Glucose 86 mg/dL (65-115); Osmolality Calculated 291 mOsm/kg (285-295); Phosphorus 2.6 mg/dL (2.5-4.5); Potassium 4.2 mmol/L (3.5-5.1); Sodium 141 mmol/L (136-145); Total Bilirubin 0.5 mg/dL (0.15-1.2); Total Protein 6.2 g/dL (6.6-8.7)
[2023-06-19 07:32] LABS: Slide Review Slide Review Perform
[2023-06-19] MEDS: valproic acid 250 mg/5 mL UDC 500 MG PO ×3 (08:04→21:57)
[2023-06-19] MEDS: meropenem 1,000 MG in sodium chloride 0.9% (plus) 50 ML 100 MG IV ×3 (08:04→23:28)
[2023-06-19] MEDS: pantoprazole 40 mg SDV IVP ×2 (08:04→21:57)
[2023-06-19] MEDS: levETIRAcetam 1,000 mg/10 mL UDC 500 MG PO ×2 (08:04→17:32)
[2023-06-19] MEDS: levothyroxine 125 mcg Tablet PO (08:05)
[2023-06-19] MEDS: donepezil 5 MG Tablet PO (08:05)
[2023-06-19] MEDS: carbidopa-levodopa 25-100mg Tablet 1 EACH PO ×3 (08:05→21:57)
[2023-06-19] MEDS: apixaban 5 mg Tablet PO ×2 (08:07→21:57)
[2023-06-19] MEDS: vancomycin 1,000 MG in sodium chloride 0.9% 250 ML 250 MG IV ×2 (11:30→21:56)
[2023-06-19] MEDS: tamsulosin 0.4 mg Capsule PO (11:35)
--- NOTE | 2023-06-19 12:11 | PC.NURSE ---
patient straight cathed, 400 ml of urine returned
--- NOTE | 2023-06-19 13:51 | P.PN_ITS ---
Subjective Subjective: Patient was seen this morning, he is alert, he is able to smile for me, family numbers at bedside, we discussed his christians[place] CT scan of the spine, no radiographic evidence of epidural abscess or discitis, cardiac echocardiogram was a poor quality study, however I cannot rule out underlying endocarditis, the neck step would be to order transesophageal echocardiogram, but given his age, his risk factors, his dementia, his Down syndrome, currently there is significant risks, I think that the likelihood of him having bacterial endocarditis is fairly unlikely as his blood cultures remain negative, and he is afebrile however I cannot 100% say that he does not have endocarditis, however I think it is fairly unlikely, I discussed the risk and benefits, family voiced understanding, all questions answered, they declined any further evaluation for now, if in the future he does have persistent staph bacteremia or persistent fevers then and that case transesophageal echocardiogram would be warranted but he is clinically overall improving, so I think that putting him through that transesophageal car diogram is not necessary or warranted at this time, he is holding onto urine, will resume his Flomax, his postvoid residual is about 500 mL, he needed to be straight cathed last night, we discussed the possibility of continued to straight cath him here, he might need a Rich catheter but nonetheless I does carry the risk of future risk of infections, family voiced understanding, for now we will continue IV antibiotic therapy, Vitals/I&O/Wt Last Vital Signs Temp 99.2 F 06/19/23 11:36 Pulse 49 L 06/19/23 11:36 Resp 15 06/19/23 11:36 BP 107/71 06/19/23 11:36 Pulse Ox 96 06/19/23 11:36 O2 Del Method Nasal Cannula 06/19/23 11:36 O2 Flow Rate 1 06/19/23 11:36 06/18/23 06/19/23 06/19/23 22:59 06:59 14:59 Intake Total 530 / 2050 300 / 2350 540 / 540 Output Total 325 / 825 400 / 400 Balance 530 / 1550 -25 / 1525 140 / 140 Physical Exam Const: COMMON NORMALS: no acute distress ORIENTATION/CONSCIOUSNESS: Yes awake and Yes oriented to person; not oriented to place and not oriented to time Resp: COMMON NORMALS: normal respiratory effort, No retractions, No use of accessory muscles and clear to auscultation bilaterally AUSCULTATION: clear to auscultation bilaterally Cardio: COMMON NORMALS: regular rate, regular rhythm, S1 normal heart sound present and S2 normal heart sound present RATE: regular rate RHYTHM: reg ular rhythm HEART SOUNDS: S1 normal heart sound present and S2 normal heart sound present GI: COMMON NORMALS: Normal to inspection, nondistended, normoactive bowel sounds present and non-tender Extremity: COMMON NORMALS: no pedal edema Neuro: SENSORIUM/ORIENTATION: Yes oriented to person, No oriented to place and No oriented to time Data 06/19/23 05:43 06/19/23 05:43 A&P Assessment and plan (1) Goals of care, counseling/discussion: (2) Cystitis: (3) DVT (deep venous thrombosis): (4) Down syndrome: (5) Seizure disorder: (6) Parkinsons: (7) Hypothyroidism: (8) Acute encephalopathy: (9) Pneumonia: Qualifiers: Laterality: left Lung location: lower lobe of lung Pneumonia type: due to unspecified organism Qualified Code(s): J18.9 - Pneumonia, unspecified organism (10) Hypoxia: Plan Acute encephalopathy, resolving ?, Secondary to UTI, pneumonia ? Neurochecks, aspiration precautions, seizure precautions, Pneumonia, with hypoxia on 2 L ? Continue vancomycin, meropenem Staph aureus UTI, follow blood cultures, CT scan spine, no epidural abscess, discitis, remains afebrile, cardiac echocardiogram poor quality study, for now continue conservative interventions, will try our best to avoid Rich catheter, likely discharge on Zyvox CT scan abdomen pelvis, no acute findings History of seizures, continue Keppra, Depakote if possible p.o. Hypothyroidism, levothyroxine, History of DVT, Eliquis Advance diet as tolerated as per speech therapy's recommendation, wean off fluids ? CODE STATUS, DNR, but mother is okay with intubation if required ? DVT prophylaxis Patient requires hospitalization for UTI, pneumonia, acute cephalopathy, hypoxia Attestations Medical Necessity Statement*: Patient requires hospitalization for acute encephalopathy secondary to UTI, pneumonia, with Staph aureus UTI Diagnoses Goals of care, counseling/discussion Z71.89 Cystitis N30.90 DVT (deep venous thrombosis) I82.409 Down syndrome Q90.9 Seizure disorder G40.909 Parkinsons G20 Hypothyroidism E03.9 Acute encephalopathy G93.40 Pneumonia J18.9 Laterality: left Lung location: lower lobe of lung Pneumonia type: due to unspecified organism Hypoxia R09.02
[2023-06-19 21:31] LABS: Vancomycin Trough 20.3 ug/mL (10-15)
--- NOTE | 2023-06-19 21:36 | PC.NURSE ---
Dr. Wetzel notified of bladder scan of 370 and no urine output. Straight cath ordered.
--- NOTE | 2023-06-19 21:39 | PC.NURSE ---
Pharmacy notified of vanc trough of 20.3. Pharmacy stated to go ahead and give this dose as ordered and he would adjust the next dose.
[2023-06-20] VITALS (7 sets, daily range): BP systolic 99–125; BP diastolic 63–73; PULSE 54–64; RESP 16–18; TEMP 36.6–37.3; O2SAT 93–95
--- NOTE | 2023-06-20 03:59 | PC.NURSE ---
Dr. Wetzel notified of bladder scan of 296 ml. Ordered to straight cath once now and PRN for >300 ml.
[2023-06-20 05:43] LABS: Basophils # 0.1 10^3/uL (0.0-0.1); Eosinophils # 0.2 10^3/uL (0.0-0.8); Eosinophils % 3.1 %; Hematocrit 38.8 % (37-53); Lymphocytes # 1.9 10^3/uL (0.8-4.8); Lymphocytes % 30.9 %; Mean Platelet Volume 10.6 fL (7.4-10.4); Monocytes # 0.7 10^3/uL (0.2-0.9); Monocytes % 11.7 %; Neutrophils # 2.85 10^3/uL (1.8-7.7); Neutrophils % 46.3 %; Nucleated Red Blood Cells % 0 %; Platelet Count 259 10^3/cmm (157-399); Red Blood Count 3.56 10^6/uL (3.85-5.65); Red Cell Distribution Width 13.1 % (12.1-15.1); White Blood Count 6.15 10^3/uL (3.29-11.43)
[2023-06-20 06:01] LABS: Slide Review Slide Review Perform
[2023-06-20 06:08] LABS: Alanine Aminotransferase < 5 U/L (0-41); Albumin Level 2.4 g/dL (3.5-5.2); Alkaline Phosphatase 55 U/L (40-130); Aspartate Amino Transferase 27 U/L (0-40); Blood Urea Nitrogen 11 mg/dL (8-23); Calcium 7.9 mg/dL (8.5-10.5); Carbon Dioxide 30 mmol/L (22-29); Chloride 108 mmol/L (98-107); Creatinine Clr Calc Pharmacy 77.1309; Globulin 3.9 g/dL (1.3-4.6); Glomerular Filtration Rate 85.5 mL/min (90-130); Glucose 89 mg/dL (65-115); Osmolality Calculated 291 mOsm/kg (285-295); Phosphorus 2.5 mg/dL (2.5-4.5); Sodium 141 mmol/L (136-145); Total Bilirubin 0.4 mg/dL (0.15-1.2); Total Protein 6.3 g/dL (6.6-8.7)
[2023-06-20] MEDS: meropenem 1,000 MG in sodium chloride 0.9% (plus) 50 ML 100 MG IV (07:34)
[2023-06-20] MEDS: cefTRIAXone 1,000 MG in sodium chloride 0.9% (plus) 50 ML 100 MG IV (08:47)
[2023-06-20] MEDS: FUROsemide 10 mg/mL SDV 2mL 20 MG IVP (08:47)
[2023-06-20] MEDS: pantoprazole 40 mg SDV IVP (08:47)
[2023-06-20] MEDS: levETIRAcetam 1,000 mg/10 mL UDC 500 MG PO (09:38)
[2023-06-20] MEDS: tamsulosin 0.4 mg Capsule PO (09:41)
[2023-06-20] MEDS: donepezil 5 MG Tablet PO (09:41)
[2023-06-20] MEDS: levothyroxine 125 mcg Tablet PO (09:42)
[2023-06-20] MEDS: carbidopa-levodopa 25-100mg Tablet 1 EACH PO (09:42)
[2023-06-20] MEDS: valproic acid 250 mg/5 mL UDC 500 MG PO (09:43)
[2023-06-20] MEDS: apixaban 5 mg Tablet PO (09:43)
--- NOTE | 2023-06-20 11:05 | PM.DCS ---
Discharge Providers Date of Admission: 06/15/23 15:37 Date of Discharge: June 20, 2023 Attending Provider at Admission: Jonh Walls MD Attending Provider at Discharge: Jonh Walls MD Primary Care Provider: Jessy Turcios Diagnoses at Discharge Discharge Diagnosis (1) Goals of care, counseling/discussion: Status: Acute (2) Cystitis: Status: Acute (3) DVT (deep venous thrombosis): Status: Acute (4) Down syndrome: Status: Acute (5) Seizure disorder: Status: Acute (6) Parkinsons: Status: Acute (7) Hypothyroidism: Status: Acute (8) Acute encephalopathy: Status: Acute (9) Pneumonia: Status: Inactive Qualifiers: Laterality: left Lung location: lower lobe of lung Pneumonia type: due to unspecified organism Qualified Code(s): J18.9 - Pneumonia, unspecified organism (10) Hypoxia: Status: Acute Reason for Visit Reason for Visit: ams, non verbal Hospital Course Hospital Course Marco Bradely is a 63 year old male with a past medical history of seizures, history of Down syndrome, at baseline patient does not ambulate and is a Mimi lift, is? 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, is at baseline, tells me for the last 5 days patient has been more confused, less responsive, he has been on antibiotics, for the last 4 days, for concerns for UTI, he has had a poor appetite, no choking episodes no coughing episodes, no falls, he has not had any complaints,, Patient was admitted to [facility] for acute encephalopathy secondary to UTI, pneumonia, aspiration pneumonitis, overall his mentation has improved, at baseline he is nonverbal, he can say a few words here and there, is able to smile, family members at bedside have tells me that he is at his baseline on discharge, For his recurrent aspiration pneumonia, aspiration pneumonitis, given his underlying dementia, he had extensive discussion with family that he has a high risk of recurrent aspiration, aspiration pneumonitis, recurrent hospitalizations, and morbidity and mortality associated. He is on a dysphagia level 4 diet which she will be discharged on, but there is still a risk of aspiration, aspiration pneumonitis, sepsis, septic shock, morbidity mortality associated. Family does not want for him to have a PEG tube. I have discharged him with a dysphagia level 4 diet, antibiotics for 5 more days, instructions to monitor for aspiration, aspiration precautions, if needed he can have 2 L if his O2 sats drops below 89%. However I was honest with family that unfortunately that this aspiration pneumonia, aspiration pneumonitis with his underlying health condition, will be a recurrent issue, resulting in recurrent hospitalizations, we can do the best we can with antibiotic therapy, but in the future my worry is is that he will have a significant aspiration event, that will resulted in acute respiratory failure, and significant sepsis, and morbidity and mortality associated. However at that point family would just want him to be comfortable for us to ease his pain and ease his suffering they would not want any aggressive interventions, and they do not want any feeding tube to be placed. Patient had a Staph aureus UTI, possibly secondary to straight cath that he received at the snf for urinary retention, blood cultures have been negative, he has been afebrile, CT scan of the spine shows no evidence of epidural abscess or discitis. Cardiac echocardiogram was a poor quality study could not evaluate valves. I spoke to family in detail, Staph aureus UTI is an unusual UTI, given that he does not have a chronic Rich catheter or any artificial hardware. The concern would be does he have a bacteremia although blood cultures are negative and endocarditis. I discussed with him possibly undergoing a transesophageal echocardiogram to ensure that none of the heart valves show any evidence of infection. However family would not want him to go through her transesophageal echocardiogram which is reasonable given his risk factors his underlying dementia and his Down syndrome. Although I think the likelihood of him having endocarditis is fairly unlikely, it would be of concern if in the future he developed Staph aureus bacteremia or recurrent fevers. For now I have discharged him on 5 days of cefdinir, can consider Zyvox in the future but there is interactions with his levodopa carbidopa. Patient has a history of urinary retention is on Flomax, he had episodes of urinary tension during his hospitalization, up to 600 mL in his bladder, family does not want a Rich catheter to be placed at this time, as they are worried about his future risk of UTIs, and now with a Staph aureus UTI, they are worried about further developing infections. However him holding onto urine also carries increased risk of infections. We discussed doing straight caths up to the 3 or more times a day to ensure that he does not hold onto urine, for now I have increased his Flomax to 0.8 mg, would BladderScan him every 8 hours at the snf, and straight cath him 3 or more times a day to ensure that his bladder carries less than 200 mL of urine. But I was clear with family that even straight cathing him carries a risk of recurrent UTIs Staph aureus UTI. Discussed risk and benefits, patient's family voiced understanding, all questions answered, agreed to proceed. Physical Exam Const: COMMON NORMALS: no acute distress ORIENTATION/CONSCIOUSNESS: Yes awake and Yes oriented to person; not oriented to place and not oriented to time Neck/C-Spine: COMMON NORMALS: no JVD Resp: COMMON NORMALS: normal respiratory effort, No retractions, No use of accessory muscles and clear to auscultation bilaterally AUSCULTATION: clear to auscultation bilaterally Cardio: COMMON NORMALS: no JVD, regular rate, regular rhythm, S1 normal heart sound present and S2 normal heart sound present RATE: regular rate RHYTHM: regular rhythm HEART SOUNDS: S1 normal heart sound present and S2 normal heart sound present GI: COMMON NORMALS: Normal to inspection, nondistended, normoactive bowel sounds present and non-tender Extremity: COMMON NORMALS: no pedal edema Neuro: SENSORIUM/ORIENTATION: Yes oriented to person, No oriented to place and No oriented to time Discharge Data Studies Completed and Pending Completed Studies During Hospitalization Category Date Time Status CT abdomen pelvis w con* [id number] Stat Cat Scan 06/15/23 13:[address] cervical spin wo con* [id number] Routine Cat Scan 06/18/23 08:[address] chest wo con [id number] Routine Cat Scan 06/18/23 08:[address] head wo con* [id number] Stat Cat Scan 06/15/23 13:[address] lumbar spine wo con* [id number] Routine Cat Scan 06/18/23 08:[address] thoracic spin wo con* [id number] Routine Cat Scan 06/18/23 08:17 Completed XR chest 1V portable [id number] Stat Exams 06/15/23 13:25 Completed CV. echo complete* [id number] Routine Ultrasound 06/18/23 08:17 Completed Pending at discharge Category Date Time Status Blood Culture Stat Lab 06/15/23 17:41 Results Complete Blood Count w/Auto AM LABS Lab 06/21/23 04:00 Ordered Comprehensive Metabolic Panel AM LABS Lab 06/21/23 04:00 Ordered Magnesium AM LABS Lab 06/21/23 04:00 Ordered Phosphorus AM LABS Lab 06/21/23 04:00 Ordered Sputum Culture and Gram Stain Stat Lab 06/15/23 15:53 Uncollected Radiology Impressions Chest X-Ray 06/15/23 13:25 IMPRESSION: Hazy bilateral perihilar infiltrates, left side greater than right. Abdomen/Pelvis CT 06/15/23 13:41 IMPRESSION: 1. Mildly distended urinary bladder with diffuse bladder wall thickening and small bladder diverticulum stable from previous exam as discussed above. 2. Cholelithiasis without evidence of acute cholecystitis. 3. Chronic grade 1 isthmic spondylolisthesis L5-S1. Laboratory Results WBC 6.15 10^3/uL (3.29-11.43) 06/20/23 05:35 RBC 3.56 10^6/uL (3.85-5.65) L 06/20/23 05:35 Hgb 12.80 g/dL (11.27-16.99) 06/20/23 05:35 Hct 38.8 % (37-53) 06/20/23 05:35 MCV 109.0 fl (82-101) H 06/20/23 05:35 MCH 36.0 pg (27-33) H 06/20/23 05:35 MCHC 33.0 g/dL (30-55) 06/20/23 05:35 RDW 13.1 % (12.1-15.1) 06/20/23 05:35 Plt Count 259 10^3/cmm (157-399) 06/20/23 05:35 MPV 10.6 fL (7.4-10.4) H 06/20/23 05:35 Neut % (Auto) 46.3 % 06/20/23 05:35 Lymph % (Auto) 30.9 % 06/20/23 05:35 [place] % (Auto) 11.7 % 06/20/23 05:35 Eos % (Auto) 3.1 % 06/20/23 05:35 Baso % (Auto) 2.0 % 06/20/23 05:35 Neut # (Auto) 2.85 10^3/uL (1.8-7.7) 06/20/23 05:35 Lymph # (Auto) 1.9 10^3/uL (0.8-4.8) 06/20/23 05:35 [place] # (Auto) 0.7 10^3/uL (0.2-0.9) 06/20/23 05:35 Eos # (Auto) 0.2 10^3/uL (0.0-0.8) 06/20/23 05:35 Baso # (Auto) 0.1 10^3/uL (0.0-0.1) 06/20/23 05:35 Nucleated RBC % (auto) 0 % 06/20/23 05:35 Total Counted 100 (0-100) 06/17/23 03:16 Atypical Lymphs % 0.0 % (0-5) 06/17/23 03:16 Absolute Neutrophils 2.5 10^3/cmm (1.4-6.5) 06/17/23 03:16 Segmented Neutrophils 52 % 06/17/23 03:16 Abs Segm Neuts (Man) 2.5 10/cmm (1.6-7.1) 06/17/23 03:16 Band Neutrophils 1.0 % 06/17/23 03:16 Abs Band Neuts (Man) 0.0 10^3/cmm (0.0-1.2) 06/17/23 03:16 Absolute Lymphocytes 1.7 10^3/cmm (1.2-3.4) 06/17/23 03:16 Lymphocytes (Manual) 36 % 06/17/23 03:16 Monocytes (Manual) 7.0 % 06/17/23 03:16 Absolute Monocytes 0.3 10^3/cmm (0.1-0.6) 06/17/23 03:16 Eosinophils (Manual) 0 % 06/17/23 03:16 Absolute Eosinophils 0.0 10^3/cmm (0.0-0.7) 06/17/23 03:16 Basophils (Manual) 0.0 % 06/17/23 03:16 Absolute Basophils 0.0 10^3/cmm (0.0-0.2) 06/17/23 03:16 Metamyelocytes 2.0 % 06/17/23 03:16 Myelocytes 2.0 % 06/17/23 03:16 Nucleated RBCs # 0.0 /100WBC 06/20/23 05:35 Platelet Estimate Normal (Normal) 06/17/23 03:16 ESR 63 mm/hr (0-10) H 06/18/23 04:44 PT 17.40 SECONDS (12.1-14.9) H 06/15/23 14:38 INR 1.38 (0.8-1.2) H 06/15/23 14:38 APTT 76.3 SECONDS (23.9-36.7) H 06/17/23 15:32 Sodium 141 mmol/L (136-145) 06/20/23 05:35 Potassium 4.0 mmol/L (3.5-5.1) 06/20/23 05:35 Chloride 108 mmol/L (98-107) H 06/20/23 05:35 Carbon Dioxide 30 mmol/L (22-29) H 06/20/23 05:35 Anion Gap 7.0 (5-19) 06/20/23 05:35 BUN 11 mg/dL (8-23) 06/20/23 05:35 Creatinine 0.9 mg/dL (0.7-1.2) 06/20/23 05:35 GFR Calculation 85.5 mL/min (90-130) L 06/20/23 05:35 Glucose 89 mg/dL (65-115) 06/20/23 05:35 POC Glucose 119 mg/dL (70-110) H 06/18/23 20:24 Calculated Osmolality 291 mOsm/kg (285-295) 06/20/23 05:35 Lactic Acid 2.2 mmol/L (0.5-2.2) 06/15/23 14:38 Lactic Acid (Sepsis) 1.8 mmol/L (0.5-2.2) 06/15/23 17:39 Calcium 7.9 mg/dL (8.5-10.5) L 06/20/23 05:35 Phosphorus 2.5 mg/dL (2.5-4.5) 06/20/23 05:35 Magnesium 2.0 mg/dL (1.7-2.3) 06/20/23 05:35 Total Bilirubin 0.4 mg/dL (0.15-1.2) 06/20/23 05:35 AST 27 U/L (0-40) 06/20/23 05:35 ALT < 5 U/L (0-41) 06/20/23 05:35 Alkaline Phosphatase 55 U/L (40-130) 06/20/23 05:35 C-Reactive Protein 81.3 mg/L (0.0-4.9) H 06/15/23 14:38 NT-Pro-B Natriuret Pep 78 pg/mL (0-125) 06/15/23 14:38 Total Protein 6.3 g/dL (6.6-8.7) L 06/20/23 05:35 Albumin 2.4 g/dL (3.5-5.2) L 06/20/23 05:35 Globulin 3.9 g/dL (1.3-4.6) 06/20/23 05:35 Triglycerides 104 mg/dL (0-150) 06/15/23 14:38 Cholesterol 147 mg/dL (0-200) 06/15/23 14:38 LDL Cholesterol, Calc 97 mg/dL (50-129) 06/15/23 14:38 HDL Cholesterol 29 mg/dL (60-100) L 06/15/23 14:38 LDL/HDL Ratio 3.34 RATIO (0.00-3.22) H 06/15/23 14:38 Cholesterol/HDL Ratio 5.07 mg/dL (1.0-5.00) H 06/15/23 14:38 Lipase 25 U/L (13-60) 06/15/23 14:38 Procalcitonin 0.14 ng/mL (0-0.5) 06/15/23 14:38 TSH 6.22 uIU/mL (0.27-4.20) H 06/15/23 14:38 Random Cortisol 12.77 ug/dL (2.47-19.5) 06/15/23 14:38 Urine Color Yellow (Yellow) 06/15/23 14:16 Urine Appearance Cloudy (CLEAR) A 06/15/23 14:16 Urine pH 5 (5-7) 06/15/23 14:16 Ur Specific [place] 1.015 (1.005-1.030) 06/15/23 14:16 Urine Protein 1+ (Negative) H 06/15/23 14:16 Urine Glucose (UA) Norm (Normal) 06/15/23 14:16 Urine Ketones 1+ (Negative) H 06/15/23 14:16 Urine Blood 3+ (Negative) H 06/15/23 14:16 Urine Nitrate Negative (Negative) 06/15/23 14:16 Urine Bilirubin Neg (Negative) 06/15/23 14:16 Urine Urobilinogen Norm mg/dL (Negative) 06/15/23 14:16 Ur Leukocyte Esterase 2+ (Negative) H 06/15/23 14:16 Urine RBC 0-4 /hpf (0-2) H 06/15/23 14:16 Urine WBC Too numerous to cnt /hpf (0-5) H 06/15/23 14:16 Ur Squamous Epith Cells 0-4 /hpf (0-5) H 06/15/23 14:16 Amorphous Sediment Not Reportable 06/15/23 14:16 Urine Bacteria Trace /hpf (NONE) 06/15/23 14:16 Nasal Influ A H1 2009 PCR Not detected (NOT DETECT) 06/15/23 19:28 Vancomycin Trough 20.3 ug/mL (10-15) H 06/19/23 20:57 Adenovirus (PCR) Not detected (NOT DETECT) 06/15/23 19:28 C. pneumoniae DNA (PCR) Not detected (NOT DETECT) 06/15/23 19:28 Coronavirus 229E (PCR) Not detected (NOT DETECT) 06/15/23 19:28 Human Metapneumovir PCR Not detected (NOT DETECT) 06/15/23 19:28 Influenza A (H1) PCR Not detected (NOT DETECT) 06/15/23 19:28 Influenza A (H3) PCR Not detected (NOT DETECT) 06/15/23 19:28 Influenza Type A (PCR) Not detected (NOT DETECT) 06/15/23 19:28 Influenza Type B (PCR) Not detected (NOT DETECT) 06/15/23 19:28 M. pneumoniae (PCR) Not detected (NOT DETECT) 06/15/23 19:28 Parainfluenza 1 (PCR) Not detected (NOT DETECT) 06/15/23 19:28 Parainfluenza 2 (PCR) Not detected (NOT DETECT) 06/15/23 19:28 Parainfluenza 3 (PCR) Not detected (NOT DETECT) 06/15/23 19:28 Parainfluenza 4 (PCR) Not detected (NOT DETECT) 06/15/23 19:28 RSV Type A (PCR) Not detected (NOT DETECT) 06/15/23 19:28 RSV Type B (PCR) Not detected (NOT DETECT) 06/15/23 19:28 Entero/Rhino (PCR) Not detected (NOT DETECT) 06/15/23 19:28 SARS-CoV-2 (PCR) Not detected (NOT DETECT) 06/15/23 19:28 Vitals Last Vital Signs Temp 97.9 F 06/20/23 07:43 Pulse 57 L 06/20/23 07:58 Resp 16 06/20/23 07:58 BP 125/69 06/20/23 07:43 Pulse Ox 94 06/20/23 07:58 O2 Del Method Room Air 06/20/23 07:58 O2 Flow Rate 1 06/19/23 21:21 Discharge Plan Discharge Patient Disposition: Xfer SNF Condition: Stable Prescriptions: New Eliquis 5 mg Tablet 5 mg PO BID@0900,2100 30 Days Qty: 60 0RF cefdinir 300 mg capsule 300 mg PO BID 5 Days Qty: 10 0RF Continued donepezil 5 mg Tablet 5 mg PO DAILY levothyroxine 125 mcg Tablet 125 mcg PO DAILY levetiracetam 500 mg tablet 500 mg PO BID guaifenesin 100 mg/5 mL Liquid 100 mg PO Q12H PRN (Reason: Cough) ketoconazole 2 % Cream 1 applic TOPICAL BID sennosides [senna] 8.6 mg Tablet 8.6 mg PO BID acetaminophen 325 mg Tablet 650 mg PO QID PRN (Reason: Pain) divalproex 250 mg tablet,delayed release (DR/EC) 500 mg PO TID polyethylene glycol 3350 [Miralax] 17 gram Powder In Packet 17 g PO BID tetrahydrozoline [Visine] 0.05 % Drops 2 drp OPHTHALMIC (EYE) Q8H PRN (Reason: Dry Eye(S)) magnesium hydroxide [Milk of Magnesia] 400 mg/5 mL Suspension 30 ml PO DAILY PRN (Reason: Constipation) bisacodyl 10 mg Suppository 10 mg CO DAILY PRN (Reason: Constipation) Fleet Enema 19-7 gram/118 mL Enema 118 ml CO DAILY PRN (Reason: Constipation) carbidopa-levodopa 25-100 mg tablet 1 tab PO TID Changed tamsulosin 0.4 mg Capsule 0.8 mg PO DAILY 30 Days Qty: 60 0RF Discontinued Eliquis DVT-PE Treat 30D Start 5 mg (74 tabs) tablets,dose pack See Rx Instructions .ROUTE .COMPLEX Qty: 74 0RF Rx Instructions: orally per package directions amoxicillin-pot clavulanate [Augmentin] 500-125 mg tablet 1 tab PO BID Qty: 4 0RF Discharge Orders: Discharge Order (Routine); Ordered 06/20/23 Ordered By: Jonh Walls Referrals: Jessy Turcios [Primary Care Provider] - Discharge Diet: Cardiac Discharge Activity: Resume usual activity Patient Instructions: Dementia (ED) Activity Restrictions/Additional Instructions: - For aspiration pneumonia, dysphagia level 4 diet, aspiration precautions, ?, Patient might require oxygen, if he aspirates, he can have 2 L nasal cannula if his oxygen saturations drop below 89% ? Patient has history of urinary retention, for now family wants to avoid Rich catheter placement, ?, Please BladderScan every 8 hours, ?, Straight cath every 8 hours as needed, ? Take antibiotics as prescribed for UTI, ? Please monitor mentation closely, behavior closely, if there is any significant alterations of mentation, patient has a high risk of future aspiration, recurrent UTIs, I would recommend for him to be treated with antibiotics -Please monitor for deep tissue injury ? Discharge Attestations Time Spent in Discharge Care*: greater than 30 min Status at Discharge: Cognitive status at discharge: severely impaired cognition, Behavioral status at discharge: cooperative, Quality Metrics Clinical Quality Measures [ No reported AMI, CVA or VTE this stay] Coding Level of Care Code 43159 Total time (in minutes) for Discharge: 45 Diagnoses Goals of care, counseling/discussion Z71.89 Cystitis N30.90 DVT (deep venous thrombosis) I82.409 Down syndrome Q90.9 Seizure disorder G40.909 Parkinsons G20 Hypothyroidism E03.9 Acute encephalopathy G93.40 Pneumonia J18.9 Laterality: left Lung location: lower lobe of lung Pneumonia type: due to unspecified organism Hypoxia R09.02
--- NOTE | 2023-06-20 11:06 | PC.SOCIAL ---
IMM Updated Updated pt's mother on IMM. No questions voiced. Provided pt a copy. Initialed, dated, & timed copy in chart.
[2023-06-20 13:19] LABS: SARS Covid-2 Antigen negative (Negative)
== END 2023-06-20 15:45 | disposition skilled nursing facility (03) | DRG 689 ==
LOC: ER 16:49 → MEDSURG 17:30
PROVIDERS: Admitting Provider Family Medicine; Emergency Provider Family Medicine; PCP Registered Nurse; Visit Provider Family Medicine
DX: N30.90 Cystitis, unspecified without hematuria (principal); J69.0 Pneumonitis due to inhalation of food and vomit; G93.40 Encephalopathy, unspecified; B95.61 Methicillin susceptible Staphylococcus aureus infection as the cause of diseases classified elsewhere; Q90.9 Down syndrome, unspecified; G20.A1 Parkinson's disease without dyskinesia, without mention of fluctuations; F02.80 Dementia in other diseases classified elsewhere, unspecified severity, without behavioral disturbance, psychotic disturbance, mood disturbance, and anxiety; E03.9 Hypothyroidism, unspecified; G40.909 Epilepsy, unspecified, not intractable, without status epilepticus; Z86.718 Personal history of other venous thrombosis and embolism; Z79.01 Long term (current) use of anticoagulants; Z66 Do not resuscitate; R33.9 Retention of urine, unspecified; E86.0 Dehydration; R09.02 Hypoxemia
CPT/HCPCS: 36415; 36416; 51702; 51798; 70450; 71045; 71250; 72125; 72128; 72131; 74177; 80053; 80061; 80202; 81001; 82533; 82962; 83605; 83690; 83735; 83880; 84100; 84145; 84443; 85007; 85025; 85610; 85651; 85730; 86140; 87040; 87077; 87086; 87186; 87426; 87486; 87581; 87633; 92526; 92610; 93005; 93306; 96365; 99285; C9113; J0696; J1644; J1940; J1953; J2185; J3370; J3490; J7030; J7050; Q9967